=== PATIENT | female | born 1940 | race Caucasian/White ===

== ENCOUNTER 2017-04-29 07:41 | Inpatient (IN) | payer MEDICARE, BC ==
[2017-04-29] MEDS ORDERED: Pantoprazole 80 MG in Sodium Chloride 0.9% 100 ML IV ONE (08:03)
[2017-04-29] MEDS ORDERED: Ondansetron 4 MG/2 ML SDV IVPUSH ONE (08:03)
[2017-04-29] MEDS ORDERED: Sodium Chloride 0.9% 1,000 ML IV SCH ×2 (08:15→08:30)
[2017-04-29] MEDS ORDERED: Pantoprazole 80 MG in Sodium Chloride 0.9% 100 ML IV SCH (08:30)
[2017-04-29] MEDS ORDERED: Sodium Chloride 0.9% 250 ML IV SCH ×2 (08:30→09:30)
[2017-04-29] MEDS ORDERED: Sodium Chloride 0.9% 10 ML Syringe FLUSH PRN (08:41)
[2017-04-29] MEDS ORDERED: Ondansetron 4 MG Tab.DIS PO PRN (08:41)
[2017-04-29] MEDS ORDERED: Phytonadione 5 MG in Sodium Chloride 0.9% 50 ML IV ONE (08:45)
[2017-04-29] MEDS ORDERED: Lactated Ringers 1,000 ML IV SCH (08:45)
--- NOTE | 2017-04-29 08:48 | EDM.PDOC ---
ED HPI GENERAL MEDICAL PROBLEM - General Chief Complaint: Gastrointestinal Problem Stated Complaint: GI BLEED Time Seen by Provider: 04/29/17 07:41 Source of Information: Reports: Patient, Family History Limitations: Reports: No Limitations - History of Present Illness INITIAL COMMENTS - FREE TEXT/NARRATIVE: 77 y.o.w f with H/O CAD, on coumadine, last INR level was 4.7. came to the ed due to N/V in the past 3 days. Today she saw blood in her vomit and her stool was black. She felt weak as well. Last food intake yesterday. no, mild nausea and feeling weak, no other acute madical issues, no F/C no trauma. Onset: Gradual Onset Date: 04/27/17 Onset Time: 08:00 Duration: Getting Worse, Intermittent Location: Reports: Abdomen Quality: Reports: Other (weak) Severity: Moderate Improves with: Reports: Rest Worsens with: Reports: Movement Context: Reports: Other (black stool) Associated Symptoms: Reports: Nausea/Vomiting, Weakness, Other (H/O CAD) DENIES ANY PAIN AT PRESENT TIME Pain Score (Numeric/FACES): 0 - Related Data Allergies Allergy/AdvReac Type Severity Reaction Status Date / Time Iodinated Contrast- Oral and Allergy Itching Verified 04/29/17 14:56 IV Dye Home Meds: Home Meds Aspirin [Adult Low Dose Aspirin EC] 81 mg PO DAILY 04/29/17 [History] Carvedilol [Carvedilol] 6.25 mg DAILY 04/29/17 [History] Furosemide [Furosemide] 40 mg BID 04/29/17 [History] Lovastatin [Mevacor] 40 mg DAILY 04/29/17 [History] Multivitamin [Multi-Vitamin Daily] 1 tab DAILY 04/29/17 [History] Potassium Chloride [Klor-Con Sprinkle] 10 meq DAILY 04/29/17 [History] Warfarin Sodium [Jantoven] 1.25 mg DAILY 04/29/17 [History] Past Medical History HEENT History: Reports: Cataract Other HEENT History: L cataract Cardiovascular History: Reports: Afib, CAD, High Cholesterol, Hypertension 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: Musculoskeletal History: Reports: Arthritis, Fracture, Gout Other Musculoskeletal History: hx fx L ankle Neurological History: Reports: CVA Other Neuro History: mini-stroke Endocrine/Metabolic History: Reports: None Hematologic History: Reports: Blood Transfusion(s) - Infectious Disease History Infectious Disease History: Reports: Chicken Pox, Measles, Mumps - Past Surgical History Cardiovascular Surgical History: Reports: Other (See Below) Other Cardiovascular Surgeries/Procedures: heart valve repaired Musculoskeletal Surgical History: Reports: Other (See Below) Other Musculoskeletal Surgeries/Procedures:: L lower ankle surgery Social & Family History - Family History Family Medical History: Noncontributory - Tobacco Use Smoking Status *Q: Never Smoker - Alcohol Use Days Per Week of Alcohol Use: 7 Number of Drinks Per Day: 2 Total Drinks Per Week: 14 - Recreational Drug Use Recreational Drug Use: No ED ROS GENERAL - Review of Systems Review Of Systems: See Below Constitutional: Reports: Weakness, Fatigue HEENT: Reports: No Symptoms Respiratory: Reports: No Symptoms Cardiovascular: Reports: No Symptoms, Lightheadedness Endocrine: Reports: No Symptoms GI/Abdominal: Reports: Abdominal Pain (epigastric) : Reports: No Symptoms Musculoskeletal: Reports: No Symptoms Skin: Reports: No Symptoms Neurological: Reports: Weakness Psychiatric: Reports: No Symptoms Hematologic/Lymphatic: Reports: No Symptoms Immunologic: Reports: No Symptoms ED EXAM, GI/ABD - Physical Exam Exam: See Below Exam Limited By: Physical Impairment (weak) General Appearance: Alert, WD/WN, Mild Distress Eyes: Bilateral: Normal Appearance Ears: Normal External Exam Nose: Normal Inspection, Normal Mucosa Throat/Mouth: Normal Inspection, Normal Lips Head: Atraumatic, Normocephalic Neck: Normal Inspection, Supple, Non-Tender Respiratory/Chest: No Respiratory Distress, Lungs Clear, Normal Breath Sounds Cardiovascular: Normal Peripheral Pulses, Regular Rate, Rhythm GI/Abdominal Exam: Normal Bowel Sounds (Female) Exam: Deferred Rectal (Female) Exam: Black Stool Back Exam: Normal Inspection Extremities: Normal Inspection Neurological: Alert, Oriented, CN II-XII Intact, Normal Cognition Psychiatric: Normal Affect, Normal Mood Skin Exam: Warm, Dry Lymphatic: No Adenopathy Course - Vital Signs Text/Narrative:: 77 y.o.w f with H/O CAD, on coumadine, last INR level was 4.7. came to the ed due to N/V in the past 3 days. Today she saw blood in her vomit and her stool was black. She felt weak as well. Last food intake yesterday. no, mild nausea and feeling weak, no C/P, no other acute medical issues, no F/C no trauma.\ PE: pale, weak, NAD Labs: HGB 6.8 HCT 20.3 INR 1.75 Impression: Upper GI bleed, Anemia, CAD, INR 1.7 Tx: NS, Protonix, Zofran, FFP. Vitamin K Rexam: Improved 8.29 am Consultation: Dr. Craven, Surgeon: Will scope here in am 8.[address] Resendiz, Hospitalist, will see pt in the ed Plan: Admit to ICU Last Recorded V/S: Last Vital Signs Temp 36.3 C 04/29/17 17:00 Pulse 83 04/29/17 17:00 Resp 18 04/29/17 17:00 BP 104/41 L 04/29/17 17:00 Pulse Ox 100 04/29/17 17:00 - Orders/Labs/Meds Orders: Active Orders 24 hr Category Date Time Status Patient Status [ADT] Routine ADT 04/29/17 08:41 Active Oxygen Therapy [RC] PRN Care 04/29/17 08:41 Active Up With Assistance [RC] ASDIRECTED Care 04/29/17 08:41 Active VTE/DVT Education [RC] Per Unit Routine Care 04/29/17 08:41 Active Vital Signs [RC] Q4H Care 04/29/17 08:41 Active FRESH FROZEN PLASMA [BBK] Stat Lab 04/29/17 07:50 Results PATIENT RETYPE [BBK] Stat Lab 04/29/17 07:50 Results RED BLOOD CELLS LP [BBK] Stat Lab 04/29/17 07:50 Results TYPE AND SCREEN [BBK] Stat Lab 04/29/17 07:50 Results Ondansetron [Zofran ODT] Med 04/29/17 08:41 Active 4 mg PO Q4H PRN Pantoprazole [ProTONIX IV] 80 mg Med 04/29/17 08:30 Active Sodium Chloride 0.9% [Normal Saline] 100 ml IV .Continuous Sodium Chloride 0.9% [Normal Saline] 250 ml Med 04/29/17 08:30 Active IV ASDIRECTED Sodium Chloride 0.9% [Saline Flush] Med 04/29/17 08:41 Active 10 ml FLUSH ASDIRECTED PRN Peripheral IV Insertion Adult [OM.PC] Routine Oth 04/29/17 08:41 Ordered Transfuse Red Blood Cells [COMM] Stat Oth 04/29/17 08:22 Ordered Resuscitation Status Routine Resus Stat 04/29/17 08:41 Ordered EKG 12 Lead [EK] Stat Ther 04/29/17 08:41 Ordered Medication Orders Sodium Chloride (Normal Saline) 250 mls @ 100 mls/hr IV ASDIRECTED NANCY Pantoprazole Sodium 80 mg/ (Sodium Chloride) 100 mls @ 10 mls/hr IV .Continuous NANCY Stop: 04/29/17 19:59 Last Admin: 04/29/17 09:56 Dose: 10 mls/hr Sodium Chloride (Normal Saline) 250 mls @ 100 mls/hr IV ASDIRECTED NANCY Last Admin: 04/29/17 10:00 Dose: 100 mls/hr Potassium Chloride/Sodium Chloride (Normal Saline With 20 Meq Kcl) 1,000 mls @ 125 mls/hr IV Q8H NANCY Last Admin: 04/29/17 13:40 Dose: 125 mls/hr Pantoprazole Sodium 80 mg/ (Sodium Chloride) 100 mls @ 10 mls/hr IV Q10H NANCY Ondansetron HCl (Zofran Odt) 4 mg PO Q4H PRN PRN Reason: nausea, able to take PO Sodium Chloride (Saline Flush) 10 ml FLUSH ASDIRECTED PRN PRN Reason: Keep Vein Open Last Admin: 04/29/17 13:32 Dose: 10 ml Labs: Laboratory Tests 04/29/17 04/29/17 04/29/17 Range/Units 07:50 07:50 07:50 WBC 7.6 (4.5-12.0) X10-3/uL RBC 1.97 L (3.23-5.20) x10(6)uL Hgb 6.8 L* (11.5-15.5) g/dL Hct 20.2 L* (30.0-51.3) % MCV 102.6 H (80-96) fL MCH 34.5 H (27.7-33.6) pg MCHC 33.6 (32.2-35.4) g/dL RDW 13.4 (11.5-15.5) % Plt Count 145 (125-369) X10(3)uL MPV 9.9 (7.4-10.4) fL Neut % (Auto) 70.2 (46-82) % Lymph % (Auto) 25.8 (13-37) % [place] % (Auto) 3.8 L (4-12) % Eos % (Auto) 0 L (1.0-5.0) % Baso % (Auto) 0 (0-2) % Neut # (Auto) 5.3 (1.6-8.3) # Lymph # (Auto) 2.0 (0.6-5.0) # [place] # (Auto) 0.3 (0.0-1.3) # Eos # (Auto) 0.0 (0.0-0.8) # Baso # (Auto) 0.0 (0.0-0.2) # PT 17.9 H (8.7-11.1) INR 1.75 H (0.89-1.13) Sodium 138 (135-145) mmol/L Potassium 3.2 L (3.5-5.3) mmol/L Chloride 101 (100-110) mmol/L Carbon Dioxide 17 L (23-29) mmol/L BUN 68 H (8-23) mg/dL Creatinine 1.3 (0.6-1.3) mg/dL Est Cr Clr Drug Dosing TNP Estimated GFR (MDRD) 40 L (>60) BUN/Creatinine Ratio 52.3 H (9-20) Glucose 288 H (80-116) mg/dL Calcium 8.7 (8.6-10.2) mg/dL Total Bilirubin (0.1-1.3) mg/dL Direct Bilirubin (0.1-0.2) mg/dL AST (5-27) IU/L ALT (14-26) IU/L Alkaline Phosphatase (56-112) IU/L Troponin I (0.02-0.06) NG/ML Total Protein (6.0-8.0) g/dL Albumin (3.2-4.6) g/dL Amylase (28-100) U/L Blood Type Gel Antibody Screen Crossmatch 04/29/17 04/29/17 04/29/17 Range/Units 07:50 07:50 07:50 WBC (4.5-12.0) X10-3/uL RBC (3.23-5.20) x10(6)uL Hgb (11.5-15.5) g/dL Hct (30.0-51.3) % MCV (80-96) fL MCH (27.7-33.6) pg MCHC (32.2-35.4) g/dL RDW (11.5-15.5) % Plt Count (125-369) X10(3)uL MPV (7.4-10.4) fL Neut % (Auto) (46-82) % Lymph % (Auto) (13-37) % [place] % (Auto) (4-12) % Eos % (Auto) (1.0-5.0) % Baso % (Auto) (0-2) % Neut # (Auto) (1.6-8.3) # Lymph # (Auto) (0.6-5.0) # [place] # (Auto) (0.0-1.3) # Eos # (Auto) (0.0-0.8) # Baso # (Auto) (0.0-0.2) # PT (8.7-11.1) INR (0.89-1.13) Sodium (135-145) mmol/L Potassium (3.5-5.3) mmol/L Chloride (100-110) mmol/L Carbon Dioxide (23-29) mmol/L BUN (8-23) mg/dL Creatinine (0.6-1.3) mg/dL Est Cr Clr Drug Dosing Estimated GFR (MDRD) (>60) BUN/Creatinine Ratio (9-20) Glucose (80-116) mg/dL Calcium (8.6-10.2) mg/dL Total Bilirubin 1.1 (0.1-1.3) mg/dL Direct Bilirubin 0.2 (0.1-0.2) mg/dL AST 33 H (5-27) IU/L ALT 13 L (14-26) IU/L Alkaline Phosphatase 55 L (56-112) IU/L Troponin I < 0.01 L (0.02-0.06) NG/ML Total Protein 5.2 L (6.0-8.0) g/dL Albumin 2.7 L (3.2-4.6) g/dL Amylase 42 (28-100) U/L Blood Type O POSITIVE Gel Antibody Screen Negative Crossmatch See Detail Meds: Medications Generic Name Dose Route Start Last Admin Trade Name Shauna PRN Reason Stop Dose Admin Sodium Chloride 250 mls @ 100 mls/hr 04/29/17 08:30 Normal Saline IV ASDIRECTED NANCY Pantoprazole Sodium 80 mg/ 100 mls @ 10 mls/hr 04/29/17 08:30 04/29/17 09:56 Sodium Chloride IV 04/29/17 19:59 10 mls/hr .Continuous NANCY Administration Sodium Chloride 250 mls @ 100 mls/hr 04/29/17 09:30 04/29/17 10:00 Normal Saline IV 100 mls/hr ASDIRECTED NANCY Administration Potassium Chloride/Sodium Chloride 1,000 mls @ 125 mls/hr 04/29/17 13:00 13:40 Normal Saline With 20 Meq Kcl IV 125 mls/hr Q8H NANCY Administration Pantoprazole Sodium 80 mg/ 100 mls @ 10 mls/hr 04/29/17 20:00 Sodium Chloride IV Q10H NANCY Ondansetron HCl 4 mg 04/29/17 08:41 Zofran Odt PO Q4H PRN nausea, able to take PO Sodium Chloride 10 ml 04/29/17 08:41 04/29/17 13:32 Saline Flush FLUSH 10 ml ASDIRECTED PRN Administration Keep Vein Open Discontinued Medications Generic Name Dose Route Start Last Admin Trade Name Shauna PRN Reason Stop Dose Admin Pantoprazole Sodium 80 mg/ 100 mls @ 200 mls/hr 04/29/17 08:03 04/29/17 08:55 Sodium Chloride IV 04/29/17 08:32 200 mls/hr .BOLUS ONE Administration Sodium Chloride 1,000 mls @ 125 mls/hr 04/29/17 08:15 04/29/17 08:09 Normal Saline IV 125 mls/hr ASDIRECTED NANCY Administration Phytonadione 5 mg/ Sodium 50.5 mls @ 100 mls/hr 04/29/17 08:45 04/29/17 09:26 Chloride IV 04/29/17 09:15 Not Given ONETIME ONE Lactated Ringer's 1,000 mls @ 125 mls/hr 04/29/17 08:45 Ringers, Lactated IV ASDIRECTED NANCY Ondansetron HCl 8 mg 04/29/17 08:03 04/29/17 08:10 Zofran IVPUSH 04/29/17 08:04 8 mg ONETIME ONE Administration Departure - Departure Time of Disposition: 10:00 Disposition: Admitted As Inpatient 68 Condition: Fair Clinical Impression: Anemia, GI bleeding - Discharge Information - My Orders Last 24 Hours: My Active Orders 04/29/17 07:50 FRESH FROZEN PLASMA [BBK] Stat PATIENT RETYPE [BBK] Stat RED BLOOD CELLS LP [BBK] Stat TYPE AND SCREEN [BBK] Stat 04/29/17 08:22 Transfuse Red Blood Cells [COMM] Stat 04/29/17 08:30 Pantoprazole [ProTONIX IV] 80 mg Sodium Chloride 0.9% [Normal Saline] 100 ml IV .Continuous Sodium Chloride 0.9% [Normal Saline] 250 ml IV ASDIRECTED 04/29/17 08:41 Patient Status [ADT] Routine Oxygen Therapy [RC] PRN Up With Assistance [RC] ASDIRECTED VTE/DVT Education [RC] Per Unit Routine Vital Signs [RC] Q4H Ondansetron [Zofran ODT] 4 mg PO Q4H PRN Sodium Chloride 0.9% [Saline Flush] 10 ml FLUSH ASDIRECTED PRN Peripheral IV Insertion Adult [OM.PC] Routine Resuscitation Status Routine EKG 12 Lead [EK] Stat - Assessment/Plan Last 24 Hours: My Active Orders 04/29/17 07:50 FRESH FROZEN PLASMA [BBK] Stat PATIENT RETYPE [BBK] Stat RED BLOOD CELLS LP [BBK] Stat TYPE AND SCREEN [BBK] Stat 04/29/17 08:22 Transfuse Red Blood Cells [COMM] Stat 04/29/17 08:30 Pantoprazole [ProTONIX IV] 80 mg Sodium Chloride 0.9% [Normal Saline] 100 ml IV .Continuous Sodium Chloride 0.9% [Normal Saline] 250 ml IV ASDIRECTED 04/29/17 08:41 Patient Status [ADT] Routine Oxygen Therapy [RC] PRN Up With Assistance [RC] ASDIRECTED VTE/DVT Education [RC] Per Unit Routine Vital Signs [RC] Q4H Ondansetron [Zofran ODT] 4 mg PO Q4H PRN Sodium Chloride 0.9% [Saline Flush] 10 ml FLUSH ASDIRECTED PRN Peripheral IV Insertion Adult [OM.PC] Routine Resuscitation Status Routine EKG 12 Lead [EK] Stat
--- NOTE | 2017-04-29 09:24 | PCM.HP ---
H&P History of Present Illness - General Date of Service: 04/29/17 Source of Information: Patient History Limitations: Reports: No Limitations - History of Present Illness Initial Comments - Free Text/Narative: This is a 77-year-old female patient is on Coumadin for atrial fibrillation. She states she's had a valve repair but not replacement. 2 days ago she started vomiting and then last night she started vomiting blood. 2 days ago she started having black tarry stools. She felt very weak today was brought to the ER and was found to be anemic with upper GI bleed. Patient has a little epigastric pain. She does not take nonsteroidal anti-inflammatories. She has 2 whiskeys a day. No history of GI bleeds. She quit taken her Coumadin 3 days ago. She denies shortness of breath, sweating, dizziness but she is very fatigued. - Related Data Allergies/Adverse Reactions: Allergies Allergy/AdvReac Type Severity Reaction Status Date / Time Iodinated Contrast- Oral and Allergy Itching Verified 04/29/17 07:51 IV Dye Home Medications: Home Meds Aspirin [Adult Low Dose Aspirin EC] 81 mg PO DAILY 04/29/17 [History] Carvedilol [Carvedilol] 6.25 mg DAILY 04/29/17 [History] Furosemide [Furosemide] 40 mg BID 04/29/17 [History] Lovastatin [Mevacor] 40 mg DAILY 04/29/17 [History] Multivitamin [Multi-Vitamin Daily] 1 tab DAILY 04/29/17 [History] Potassium Chloride [Klor-Con Sprinkle] 10 meq DAILY 04/29/17 [History] Warfarin Sodium [Jantoven] 1.25 mg DAILY 04/29/17 [History] Past Medical History HEENT History: Reports: Cataract Other HEENT History: L cataract Cardiovascular History: Reports: Afib, CAD, High Cholesterol, Hypertension Gastrointestinal History: Reports: 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: Musculoskeletal History: Reports: Arthritis, Fracture, Gout Other Musculoskeletal History: hx fx L ankle Neurological History: Reports: CVA Other Neuro History: mini-stroke Endocrine/Metabolic History: Reports: None Hematologic History: Reports: Blood Transfusion(s) - Infectious Disease History Infectious Disease History: Reports: Chicken Pox, Measles, Mumps - Past Surgical History Cardiovascular Surgical History: Reports: Other (See Below) Other Cardiovascular Surgeries/Procedures: heart valve repaired Musculoskeletal Surgical History: Reports: Other (See Below) Other Musculoskeletal Surgeries/Procedures:: L lower ankle surgery Social & Family History - Family History Family Medical History: Noncontributory - Tobacco Use Smoking Status *Q: Never Smoker - Caffeine Use Caffeine Use: Reports: Soda - Alcohol Use Days Per Week of Alcohol Use: 7 Number of Drinks Per Day: 2 Total Drinks Per Week: 14 - Recreational Drug Use Recreational Drug Use: No H&P Review of Systems - Review of Systems: Review Of Systems: See Below General: Reports: Weakness HEENT: Reports: No Symptoms Pulmonary: Reports: No Symptoms Cardiovascular: Reports: No Symptoms Gastrointestinal: Reports: Abdominal Pain (Mild epigastric), Hematemesis, Melena Genitourinary: Reports: No Symptoms Musculoskeletal: Reports: No Symptoms Skin: Reports: No Symptoms Psychiatric: Reports: No Symptoms Neurological: Reports: No Symptoms Hematologic/Lymphatic: Reports: No Symptoms Immunologic: Reports: No Symptoms Exam - Exam Exam: See Below - Vital Signs Vital Signs: Last Vital Signs Temp Pulse Resp BP Pulse Ox 88 L 04/29/17 08:15 - Exam General: Alert, Oriented HEENT: Hearing Intact, Posterior Pharynx Clear Neck: Supple, Trachea Midline Lungs: Clear to Auscultation, Normal Respiratory Effort Cardiovascular: Regular Rate, Regular Rhythm. No: Tachycardia, Systolic Murmur GI/Abdominal Exam: Normal Bowel Sounds, Soft, No Organomegaly, No Distention, Tender (Mild epigastric) Back Exam: Normal Inspection, Full Range of Motion Extremities: No Pedal Edema Skin: Warm, Dry, Intact Neurological: Normal Speech, Normal Tone Neuro Extensive - Mental Status: Alert, Oriented x3, Normal Mood/Affect, Normal Cognition Psychiatric: Alert, Normal Affect, Normal Mood - Patient Data Result Diagrams: 04/29/17 07:50 04/29/17 07:50 *Q Meaningful Use (ADM) - VTE *Q VTE Criteria *Q: - Stroke *Q Stroke Criteria *Q: - AMI *Q AMI Criteria *Q: - Problem List (1) Upper GI bleed SNOMED Code(s): 91009003 ICD Code: K92.2 - GASTROINTESTINAL HEMORRHAGE, UNSPECIFIED Status: Acute Current Visit: Yes (2) Anticoagulation excessive SNOMED Code(s): 760157743 ICD Code: [id number] - Status: Acute Current Visit: Yes Problem List Initiated/Reviewed/Updated: Yes Orders Last 24hrs: Active Orders 24 hr Category Date Time Status Sodium Chloride 0.9% [Normal Saline] 1,000 ml Med 04/29/17 08:30 Active IV ASDIRECTED Medication Orders Sodium Chloride (Normal Saline) 1,000 mls @ 125 mls/hr IV ASDIRECTED NANCY Last Admin: 04/29/17 08:09 Dose: 125 mls/hr Sodium Chloride (Normal Saline) 250 mls @ 100 mls/hr IV ASDIRECTED NANCY Pantoprazole Sodium 80 mg/ (Sodium Chloride) 100 mls @ 10 mls/hr IV .Continuous NANCY Sodium Chloride (Normal Saline) 1,000 mls @ 125 mls/hr IV ASDIRECTED NANCY Ondansetron HCl (Zofran Odt) 4 mg PO Q4H PRN PRN Reason: nausea, able to take PO Sodium Chloride (Saline Flush) 10 ml FLUSH ASDIRECTED PRN PRN Reason: Keep Vein Open Assessment/Plan Comment:: 1. Admit to the ICU. 2. 1 unit FFP because the INR is already under 2. 3. 2 units of blood with too on hold 4. Nothing by mouth 5. The ER doc called Dr. Craven who will scope her later tonight. 6. Hold her home meds for now. 7. Bed rest with psychomotor 8. Discussed living barber and she wants to be a full code.
[2017-04-29] MEDS: NS + KCl 20mEq/L 1,000 ML IV SCH ×2 (13:40→21:56)
--- NOTE | 2017-04-29 16:09 | PCM.CONS ---
H&P History of Present Illness - General Date of Service: 04/29/17 Admit Problem/Dx: Hematemesis and melena Source of Information: Patient, Provider History Limitations: Reports: No Limitations - History of Present Illness Initial Comments - Free Text/Narative: Started having dark stool 2 days ago amd blood in emesis yesterday. On coumadin but not for past 3 days. No abdominal pain. No previous EGD or colonoscopy DENIES ANY PAIN AT PRESENT TIME Pain Score (Numeric/FACES): 0 - Related Data Allergies/Adverse Reactions: Allergies Allergy/AdvReac Type Severity Reaction Status Date / Time Iodinated Contrast- Oral and Allergy Itching Verified 04/29/17 14:56 IV Dye Home Medications: Home Meds Aspirin [Adult Low Dose Aspirin EC] 81 mg PO DAILY 04/29/17 [History] Carvedilol [Carvedilol] 6.25 mg DAILY 04/29/17 [History] Furosemide [Furosemide] 40 mg BID 04/29/17 [History] Lovastatin [Mevacor] 40 mg DAILY 04/29/17 [History] Multivitamin [Multi-Vitamin Daily] 1 tab DAILY 04/29/17 [History] Potassium Chloride [Klor-Con Sprinkle] 10 meq DAILY 04/29/17 [History] Warfarin Sodium [Jantoven] 1.25 mg DAILY 04/29/17 [History] Past Medical History HEENT History: Reports: Cataract Other HEENT History: L cataract Cardiovascular History: Reports: Afib, CAD, High Cholesterol, Hypertension Gastrointestinal History: Reports: 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: Musculoskeletal History: Reports: Arthritis, Fracture, Gout Other Musculoskeletal History: hx fx L ankle Neurological History: Reports: CVA Other Neuro History: mini-stroke Endocrine/Metabolic History: Reports: None Hematologic History: Reports: Blood Transfusion(s) - Infectious Disease History Infectious Disease History: Reports: Chicken Pox, Measles, Mumps - Past Surgical History Cardiovascular Surgical History: Reports: Other (See Below) Other Cardiovascular Surgeries/Procedures: heart valve repaired Musculoskeletal Surgical History: Reports: Other (See Below) Other Musculoskeletal Surgeries/Procedures:: L lower ankle surgery Social & Family History - Family History Family Medical History: Noncontributory - Tobacco Use Smoking Status *Q: Never Smoker Second Hand Smoke Exposure: No - Caffeine Use Caffeine Use: Reports: None - Alcohol Use Days Per Week of Alcohol Use: 7 Number of Drinks Per Day: 2 Total Drinks Per Week: 14 - Recreational Drug Use Recreational Drug Use: No H&P Review of Systems - Review of Systems: Review Of Systems: See Below General: Reports: Fatigue Pulmonary: Reports: No Symptoms Cardiovascular: Reports: No Symptoms Gastrointestinal: Reports: No Symptoms, Black Stool, Hematemesis Genitourinary: Reports: No Symptoms Exam - Exam Exam: See Below - Vital Signs Vital Signs: Last Vital Signs Temp 98.9 F 04/29/17 14:19 Pulse 87 04/29/17 14:19 Resp 18 04/29/17 14:19 BP 114/60 04/29/17 14:19 Pulse Ox 98 04/29/17 09:10 Weight: 66.82 kg - Exam General: Alert, Oriented Lungs: Clear to Auscultation, Normal Respiratory Effort GI/Abdominal Exam: Normal Bowel Sounds, Soft, Non-Tender, No Mass - Patient Data Lab Results Last 24 hrs: Laboratory Results - last 24 hr 04/29/17 04/29/17 Range/Units 09:30 13:35 Hgb 6.6 L* 6.9 L* (11.5-15.5) g/dL Hct 19.1 L* 20.3 L* (30.0-51.3) % Result Diagrams: 04/29/17 13:35 04/29/17 07:50 Consult PN Assessment/Plan Procedures: Procedures CARDIAC REHAB/MONITOR (05/08/16) CT HEAD/BRAIN W/O DYE (06/01/15) EMERGENCY DEPT VISIT (06/01/15) EMERGENCY DEPT VISIT (06/01/15) MRI BRAIN STEM W/O DYE (01/18/17) NEUROMUSCULAR REEDUCATION (07/10/15) OT EVALUATION (07/10/15) THER/PROPH/DIAG INJ SC/IM (06/01/15) THERAPEUTIC EXERCISES (07/10/15) (1) Upper GI bleed SNOMED Code(s): 36341191 Code(s): K92.2 - GASTROINTESTINAL HEMORRHAGE, UNSPECIFIED Current Visit: Yes Problem List Initiated/Reviewed/Updated: Yes My Orders Last 24 Hours: My Active Orders 04/29/17 Dinner NPO After Midnight [Nothing per Oral After Midnight Diet] [DIET] Nothing Per Oral Diet [DIET] 04/29/17 Lunch Clear Liquid Diet [DIET] 04/30/17 11:00 Patient to Empty Bladder [RC] ASDIRECTED Verify Patient Consent Obtain [RC] ASDIRECTED Will do EGD in am; risks and complications reviewed, consent obtained
[2017-04-29] MEDS: Pantoprazole 80 MG in Sodium Chloride 0.9% 100 ML IV SCH (20:13)
[2017-04-30] MEDS: Pantoprazole 80 MG in Sodium Chloride 0.9% 100 ML IV SCH ×2 (06:02→17:31)
[2017-04-30] MEDS: NS + KCl 20mEq/L 1,000 ML IV SCH ×2 (06:02→14:50)
--- NOTE | 2017-04-30 08:57 | PCM.PN ---
- General Info Date of Service: 04/30/17 Admission Dx/Problem (Free Text): Patient denies hematemesis, melena or abdominal pain. She states she still feels weak but better than yesterday. She denies dizziness. - Patient Data Vitals - Most Recent: Last Vital Signs Temp 98.6 F 04/30/17 07:46 Pulse 81 04/30/17 07:46 Resp 18 04/30/17 07:46 BP 132/65 04/30/17 07:46 Pulse Ox 96 04/30/17 07:46 Weight - Most Recent: 153 lb 12.8 oz I&O - Last 24 Hours: Intake & Output 04/29/17 04/30/17 04/30/17 22:59 06:59 14:59 Intake Total 1546 1006 Output Total 0 450 Balance 1546 556 Lab Results Last 24 Hours: Laboratory Results - last 24 hr 04/29/17 04/29/17 04/29/17 Range/Units 09:30 13:35 16:50 Hgb 6.6 L* 6.9 L* 8.9 L (11.5-15.5) g/dL Hct 19.1 L* 20.3 L* (30.0-51.3) % PT (8.7-11.1) INR (0.89-1.13) Sodium (135-145) mmol/L Potassium (3.5-5.3) mmol/L Chloride (100-110) mmol/L Carbon Dioxide (23-29) mmol/L BUN (8-23) mg/dL Creatinine (0.6-1.3) mg/dL Est Cr Clr Drug Dosing mL/min Estimated GFR (MDRD) (>60) BUN/Creatinine Ratio (9-20) Glucose (80-116) mg/dL Calcium (8.6-10.2) mg/dL Total Bilirubin (0.1-1.3) mg/dL AST (5-27) IU/L ALT (14-26) IU/L Alkaline Phosphatase (56-112) IU/L Total Protein (6.0-8.0) g/dL Albumin (3.2-4.6) g/dL Globulin g/dL Albumin/Globulin Ratio 04/29/17 04/29/17 04/30/17 Range/Units 16:50 21:30 01:30 Hgb 9.0 L 8.4 L (11.5-15.5) g/dL Hct 26.1 L 25.1 L (30.0-51.3) % PT 15.8 H (8.7-11.1) INR 1.55 H (0.89-1.13) Sodium (135-145) mmol/L Potassium (3.5-5.3) mmol/L Chloride (100-110) mmol/L Carbon Dioxide (23-29) mmol/L BUN (8-23) mg/dL Creatinine (0.6-1.3) mg/dL Est Cr Clr Drug Dosing mL/min Estimated GFR (MDRD) (>60) BUN/Creatinine Ratio (9-20) Glucose (80-116) mg/dL Calcium (8.6-10.2) mg/dL Total Bilirubin (0.1-1.3) mg/dL AST (5-27) IU/L ALT (14-26) IU/L Alkaline Phosphatase (56-112) IU/L Total Protein (6.0-8.0) g/dL Albumin (3.2-4.6) g/dL Globulin g/dL Albumin/Globulin Ratio 04/30/17 04/30/17 04/30/17 Range/Units 05:35 05:35 05:35 Hgb 8.2 L (11.5-15.5) g/dL Hct 24.2 L (30.0-51.3) % PT 16.1 H (8.7-11.1) INR 1.58 H (0.89-1.13) Sodium 144 (135-145) mmol/L Potassium 3.4 L (3.5-5.3) mmol/L Chloride 111 H D (100-110) mmol/L Carbon Dioxide 25 (23-29) mmol/L BUN 39 H D (8-23) mg/dL Creatinine 1.1 (0.6-1.3) mg/dL Est Cr Clr Drug Dosing 39.76 mL/min Estimated GFR (MDRD) 48 L (>60) BUN/Creatinine Ratio 35.5 H (9-20) Glucose 98 D (80-116) mg/dL Calcium 8.0 L (8.6-10.2) mg/dL Total Bilirubin 1.0 (0.1-1.3) mg/dL AST 22 D (5-27) IU/L ALT 12 L (14-26) IU/L Alkaline Phosphatase 48 L (56-112) IU/L Total Protein 4.7 L (6.0-8.0) g/dL Albumin 2.7 L (3.2-4.6) g/dL Globulin 2.0 g/dL Albumin/Globulin Ratio 1.4 Med Orders - Current: Current Medications Sodium Chloride (Normal Saline) 250 mls @ 100 mls/hr IV ASDIRECTED NANCY Sodium Chloride (Normal Saline) 250 mls @ 100 mls/hr IV ASDIRECTED NANCY Last Admin: 04/29/17 10:00 Dose: 100 mls/hr Potassium Chloride/Sodium Chloride (Normal Saline With 20 Meq Kcl) 1,000 mls @ 125 mls/hr IV Q8H [facility] Last Admin: 04/30/17 06:02 Dose: 125 mls/hr Pantoprazole Sodium 80 mg/ (Sodium Chloride) 100 mls @ 10 mls/hr IV Q10H NANCY Last Admin: 04/30/17 06:02 Dose: 10 mls/hr Ondansetron HCl (Zofran Odt) 4 mg PO Q4H PRN PRN Reason: nausea, able to take PO Sodium Chloride (Saline Flush) 10 ml FLUSH ASDIRECTED PRN PRN Reason: Keep Vein Open Last Admin: 04/29/17 13:32 Dose: 10 ml Discontinued Medications Pantoprazole Sodium 80 mg/ (Sodium Chloride) 100 mls @ 200 mls/hr IV .BOLUS ONE Stop: 04/29/17 08:32 Last Admin: 04/29/17 08:55 Dose: 200 mls/hr Sodium Chloride (Normal Saline) 1,000 mls @ 125 mls/hr IV ASDIRECTED NANCY Last Admin: 04/29/17 08:09 Dose: 125 mls/hr Pantoprazole Sodium 80 mg/ (Sodium Chloride) 100 mls @ 10 mls/hr IV .Continuous NANCY Stop: 04/29/17 19:59 Last Admin: 04/29/17 09:56 Dose: 10 mls/hr Phytonadione 5 mg/ Sodium (Chloride) 50.5 mls @ 100 mls/hr IV ONETIME ONE Stop: 04/29/17 09:15 Last Admin: 04/29/17 09:26 Dose: Not Given Lactated Ringer's (Ringers, Lactated) 1,000 mls @ 125 mls/hr IV ASDIRECTED [facility] Ondansetron HCl (Zofran) 8 mg IVPUSH ONETIME ONE Stop: 04/29/17 08:04 Last Admin: 04/29/17 08:10 Dose: 8 mg - Exam General: Alert, Oriented Lungs: Normal Respiratory Effort GI/Abdominal Exam: Normal Bowel Sounds, Soft, Non-Tender, No Distention - Problem List & Annotations (1) Upper GI bleed SNOMED Code(s): 87705467 Code(s): K92.2 - GASTROINTESTINAL HEMORRHAGE, UNSPECIFIED Status: Acute Current Visit: Yes (2) Anticoagulation excessive SNOMED Code(s): 331783103 Code(s): WDK3767 - Status: Acute Current Visit: Yes - Problem List Review Problem List Initiated/Reviewed/Updated: Yes - My Orders Last 24 Hours: My Active Orders 04/29/17 13:00 NS + KCl 20mEq/L [Normal Saline with 20 mEq KCl] 1,000 ml IV Q8H 05/01/17 06:00 INR,PT,PROTHROMBIN TIME [COAG] DAILY 05/02/17 06:00 INR,PT,PROTHROMBIN TIME [COAG] DAILY 05/03/17 06:00 INR,PT,PROTHROMBIN TIME [COAG] DAILY - Plan Plan:: 1. EGD today. Nothing by mouth until that's over. 2. Iron start after EGD.
[2017-04-30] MEDS: Iron Polysaccharides Complex 150 MG Cap PO SCH ×2 (09:56→14:45)
[2017-04-30 11:34] VITALS: BP 125/48
[2017-04-30] MEDS ORDERED: Midazolam 1 MG/ML 2 ML SDV IV ONE (12:30)
[2017-04-30] MEDS ORDERED: Lactated Ringers 1,000 ML IV ONE (12:30)
[2017-04-30] MEDS ORDERED: Propofol 200 MG/20 ML SDV IV ONE (12:30)
[2017-04-30] MEDS ORDERED: Lidocaine 2% 100 MG/5 ML Syringe IVPUSH ONE (12:30)
--- NOTE | 2017-04-30 12:40 | PCM.OPNOTE ---
- General Post-Op/Procedure Note Date of Surgery/Procedure: 04/30/17 Operative Procedure(s): EGD with bx Findings: Pyloric Channel Ulcer X 2 Pre Op Diagnosis: Hematemesis and Melena Post-Op Diagnosis: Same Anesthesia Technique: MAC Primary Surgeon: Leodan Craven Anesthesia Provider: Shelly Forde EBL in mLs: 0 Complications: None Condition: Fair Free Text/Narrative:: Intake & Output 04/29/17 04/30/17 04/30/17 22:59 06:59 14:59 Intake Total 1546 1006 Output Total 0 450 200 Balance 1546 556 -200
[2017-04-30] MEDS ORDERED: FLU Vacc QS 2017-18 (36mos UP)/PF 60 MCG/0.5 ML Syringe IM ONE ×2 (15:32→16:00)
--- NOTE | 2017-04-30 16:38 | PCM.SN ---
- Free Text/Narrative Note: Dr Craven note reviewed. Discharge the patient holding Coumadin and iron twice a day.
--- NOTE | 2017-04-30 16:42 | PCM.DCSUM1 ---
Discharge Summary - Hospital Course Free Text/Narrative:: Hospital course-patient was admitted to the ICU and given 1 unit at [facility] and 2 units of RBCs. Patients hemoglobin went up to 8.9. We followed her through the night using IV fluids and she was able to maintain her hemoglobin over 8 the whole time. She did EGD the next day that showed 2 ulcers that were not bleeding. She'll be discharged home holding her Coumadin on iron twice a day. Patient did not have any melena, hematochezia, hematemesis while she was at the hospital here. Her INR was initially 1.7 because she had stopped the Coumadin 3 days prior to. The next day was 1.53. Brief History: This is a 77-year-old female patient is on Coumadin for atrial fibrillation. She states she's had a valve repair but not replacement. 2 days ago she started vomiting and then last night she started vomiting blood. 2 days ago she started having black tarry stools. She felt very weak today was brought to the ER and was found to be anemic with upper GI bleed. Patient has a little epigastric pain. She does not take nonsteroidal anti-inflammatories. She has 2 whiskeys a day. No history of GI bleeds. She quit taken her Coumadin 3 days ago. She denies shortness of breath, sweating, dizziness but she is very fatigued. - Discharge Data Discharge Date: 04/30/17 Discharge Disposition: Home, Self-Care 01 Condition: Fair - Discharge Diagnosis/Problem(s) (1) Upper GI bleed SNOMED Code(s): 18898339 ICD Code: K92.2 - GASTROINTESTINAL HEMORRHAGE, UNSPECIFIED Status: Acute Current Visit: Yes (2) Anticoagulation excessive SNOMED Code(s): 897224329 ICD Code: UJO5831 - Status: Acute Current Visit: Yes (3) Peptic ulcer SNOMED Code(s): 57713615 ICD Code: K27.9 - PEPTIC ULC, SITE UNSP, UNSP AC OR CHR, W/O HEMOR OR PERF Status: Acute Current Visit: Yes Problem Details: 2 - Patient Summary/Data Operative Procedure(s) Performed: EGD with bx - Patient Instructions Diet: Regular Diet as Tolerated Activity: As Tolerated Driving: May Drive Today Showering/Bathing: May Shower Notify Provider of: Increased Pain, Drainage, Nausea and/or Vomiting Other/Special Instructions: 1. Recheck with Dr. Muir in 7-10 days with a CBC for the appointment. 2. Patient is to hold her Coumadin until further notice. - Discharge Plan Home Medications: Home Meds Aspirin [Adult Low Dose Aspirin EC] 81 mg PO DAILY 04/29/17 [History] Carvedilol [Carvedilol] 6.25 mg DAILY 04/29/17 [History] Furosemide [Furosemide] 40 mg BID 04/29/17 [History] Lovastatin [Mevacor] 40 mg DAILY 04/29/17 [History] Multivitamin [Multi-Vitamin Daily] 1 tab DAILY 04/29/17 [History] Potassium Chloride [Klor-Con Sprinkle] 10 meq DAILY 04/29/17 [History] Warfarin Sodium [Jantoven] 1.25 mg DAILY 04/29/17 [History] Patient Handouts: Blood Transfusion, [id number], Fall Prevention in Hospitals , Adult, Venous Thromboembolism Prevention Forms: ED Department Discharge Referrals: Evelio Muir MD [Primary Care Provider] - - Discharge Summary/Plan Comment DC Time >30 min.: No - Patient Data Vitals - Most Recent: Last Vital Signs Temp 98.6 F 04/30/17 11:18 Pulse 79 04/30/17 11:18 Resp 13 04/30/17 11:18 BP 125/48 L 04/30/17 11:18 Pulse Ox 100 04/30/17 11:18 Weight - Most Recent: 153 lb 12.8 oz I&O - Last 24 hours: Intake & Output 04/30/17 04/30/17 04/30/17 06:59 14:59 22:59 Intake Total 1006 1200 Output Total 450 200 400 Balance 556 1000 -400 Lab Results - Last 24 hrs: Laboratory Results - last 24 hr 04/29/17 04/29/17 04/29/17 Range/Units 16:50 16:50 21:30 Hgb 8.9 L 9.0 L (11.5-15.5) g/dL Hct 26.1 L (30.0-51.3) % PT 15.8 H (8.7-11.1) INR 1.55 H (0.89-1.13) Sodium (135-145) mmol/L Potassium (3.5-5.3) mmol/L Chloride (100-110) mmol/L Carbon Dioxide (23-29) mmol/L BUN (8-23) mg/dL Creatinine (0.6-1.3) mg/dL Est Cr Clr Drug Dosing mL/min Estimated GFR (MDRD) (>60) BUN/Creatinine Ratio (9-20) Glucose (80-116) mg/dL Calcium (8.6-10.2) mg/dL Total Bilirubin (0.1-1.3) mg/dL AST (5-27) IU/L ALT (14-26) IU/L Alkaline Phosphatase (56-112) IU/L Total Protein (6.0-8.0) g/dL Albumin (3.2-4.6) g/dL Globulin g/dL Albumin/Globulin Ratio 04/30/17 04/30/17 04/30/17 Range/Units 01:30 05:35 05:35 Hgb 8.4 L 8.2 L (11.5-15.5) g/dL Hct 25.1 L 24.2 L (30.0-51.3) % PT (8.7-11.1) INR (0.89-1.13) Sodium 144 (135-145) mmol/L Potassium 3.4 L (3.5-5.3) mmol/L Chloride 111 H D (100-110) mmol/L Carbon Dioxide 25 (23-29) mmol/L BUN 39 H D (8-23) mg/dL Creatinine 1.1 (0.6-1.3) mg/dL Est Cr Clr Drug Dosing 39.76 mL/min Estimated GFR (MDRD) 48 L (>60) BUN/Creatinine Ratio 35.5 H (9-20) Glucose 98 D (80-116) mg/dL Calcium 8.0 L (8.6-10.2) mg/dL Total Bilirubin 1.0 (0.1-1.3) mg/dL AST 22 D (5-27) IU/L ALT 12 L (14-26) IU/L Alkaline Phosphatase 48 L (56-112) IU/L Total Protein 4.7 L (6.0-8.0) g/dL Albumin 2.7 L (3.2-4.6) g/dL Globulin 2.0 g/dL Albumin/Globulin Ratio 1.4 04/30/17 04/30/17 04/30/17 Range/Units 05:35 10:20 14:20 Hgb 8.5 L 9.2 L (11.5-15.5) g/dL Hct 25.1 L 27.3 L (30.0-51.3) % PT 16.1 H (8.7-11.1) INR 1.58 H (0.89-1.13) Sodium (135-145) mmol/L Potassium (3.5-5.3) mmol/L Chloride (100-110) mmol/L Carbon Dioxide (23-29) mmol/L BUN (8-23) mg/dL Creatinine (0.6-1.3) mg/dL Est Cr Clr Drug Dosing mL/min Estimated GFR (MDRD) (>60) BUN/Creatinine Ratio (9-20) Glucose (80-116) mg/dL Calcium (8.6-10.2) mg/dL Total Bilirubin (0.1-1.3) mg/dL AST (5-27) IU/L ALT (14-26) IU/L Alkaline Phosphatase (56-112) IU/L Total Protein (6.0-8.0) g/dL Albumin (3.2-4.6) g/dL Globulin g/dL Albumin/Globulin Ratio Med Orders - Current: Current Medications Sodium Chloride (Normal Saline) 250 mls @ 100 mls/hr IV ASDIRECTED [facility] Sodium Chloride (Normal Saline) 250 mls @ 100 mls/hr IV ASDIRECTED [facility] Last Admin: 04/29/17 10:00 Dose: 100 mls/hr Potassium Chloride/Sodium Chloride (Normal Saline With 20 Meq Kcl) 1,000 mls @ 125 mls/hr IV Q8H [facility] Last Admin: 04/30/17 14:50 Dose: 125 mls/hr Pantoprazole Sodium 80 mg/ (Sodium Chloride) 100 mls @ 10 mls/hr IV Q10H [facility] Last Admin: 04/30/17 06:02 Dose: 10 mls/hr Ondansetron HCl (Zofran Odt) 4 mg PO Q4H PRN PRN Reason: nausea, able to take PO Polysaccharide Iron Complex (Ferrex 150) 150 mg PO TID [facility] Last Admin: 04/30/17 14:45 Dose: 150 mg Sodium Chloride (Saline Flush) 10 ml FLUSH ASDIRECTED PRN PRN Reason: Keep Vein Open Last Admin: 04/29/17 13:32 Dose: 10 ml Discontinued Medications Pantoprazole Sodium 80 mg/ (Sodium Chloride) 100 mls @ 200 mls/hr IV .BOLUS ONE Stop: 04/29/17 08:32 Last Admin: 04/29/17 08:55 Dose: 200 mls/hr Sodium Chloride (Normal Saline) 1,000 mls @ 125 mls/hr IV ASDIRECTED NANCY Last Admin: 04/29/17 08:09 Dose: 125 mls/hr Pantoprazole Sodium 80 mg/ (Sodium Chloride) 100 mls @ 10 mls/hr IV .Continuous ANNCY Stop: 04/29/17 19:59 Last Admin: 04/29/17 09:56 Dose: 10 mls/hr Phytonadione 5 mg/ Sodium (Chloride) 50.5 mls @ 100 mls/hr IV ONETIME ONE Stop: 04/29/17 09:15 Last Admin: 04/29/17 09:26 Dose: Not Given Lactated Ringer's (Ringers, Lactated) 1,000 mls @ 125 mls/hr IV ASDIRECTED [facility] Influenza Virus Vaccine (Fluzone Quad [id number]) 60 mcg IM .ONCE ONE Stop: 04/30/17 16:01 Ondansetron HCl (Zofran) 8 mg IVPUSH ONETIME ONE Stop: 04/29/17 08:04 Last Admin: 04/29/17 08:10 Dose: 8 mg *Q Meaningful Use (DIS) - VTE *Q VTE Criteria *Q: - Stroke *Q Stroke Criteria *Q: - AMI *Q AMI Criteria *Q:
--- NOTE | 2017-04-30 19:07 | OR ---
DATE OF OPERATION: 04/30/2017 SURGEON: Leodan Craven MD PREOPERATIVE DIAGNOSES: 1. Hematemesis. 2. Melena. POSTOPERATIVE DIAGNOSES: 1. Gastric ulcers of the pyloric channel. 2. Hiatal hernia. PROCEDURES: Esophagogastroduodenoscopy with biopsy. ANESTHESIA: IV sedation. PROCEDURE IN DETAIL: The patient was brought to the procedure room, where IV sedation was administered and the oral bite block placed. Upper endoscope was advanced into the esophagus under direct vision without difficulty. Vocal cords were viewed and were normal. The scope was advanced to the third portion of the duodenum. Duodenum was normal. In the pyloric channel were 2 ulcers, one measuring approximately 4 mm in diameter and the other larger one measuring approximately 8 mm in diameter. There was a white base present, but no visible vessel or evidence of recent bleeding. The remaining antrum and body were normal. Retroflexion reveals a moderate-sized hiatal hernia. The squamocolumnar junction appears normal. After the 2 biopsies were taken from the antrum, the air was removed from the stomach and the scope withdrawn through the remaining esophagus, which appears normal. The patient tolerated the procedure well and returned to recovery in stable condition. /[id number] 1900 MERLENE/KAYLA
== END 2017-04-30 17:08 | disposition home or self-care (01) | DRG 378 ==
LOC: FB.ED 07:41 → FB.ICU 08:53 → FB.MS 04-30 13:05
PROVIDERS: ADMIT Family Medicine; ATTEND Family Medicine
PROC: 30233K1 Transfusion of Nonautologous Frozen Plasma into Peripheral Vein, Percutaneous Approach (ICD-10-PCS; 2017-04-29)
PROC: 30233N1 Transfusion of Nonautologous Red Blood Cells into Peripheral Vein, Percutaneous Approach (ICD-10-PCS; 2017-04-29)
PROC: 0DB68ZX Excision of Stomach, Via Natural or Artificial Opening Endoscopic, Diagnostic (ICD-10-PCS; principal; 2017-04-30)
DX: K92.2 Gastrointestinal hemorrhage, unspecified (principal); D68.8 Other specified coagulation defects; I10 Essential (primary) hypertension; I25.10 Atherosclerotic heart disease of native coronary artery without angina pectoris; I48.91 Unspecified atrial fibrillation; Z79.01 Long term (current) use of anticoagulants; R53.1 Weakness; K92.1 Melena; R11.2 Nausea with vomiting, unspecified; Z79.82 Long term (current) use of aspirin; K25.9 Gastric ulcer, unspecified as acute or chronic, without hemorrhage or perforation; K44.9 Diaphragmatic hernia without obstruction or gangrene; E78.00 Pure hypercholesterolemia, unspecified; M19.90 Unspecified osteoarthritis, unspecified site; Z86.73 Personal history of transient ischemic attack (TIA), and cerebral infarction without residual deficits; Z91.041 Radiographic dye allergy status; K25.4 Chronic or unspecified gastric ulcer with hemorrhage; D64.9 Anemia, unspecified
CPT/HCPCS: 36415; 80048; 80076; 82150; 84484; 85025; 85610; 86850; 86900; 86901; 86920 ×2; 86922 ×2; 96361; 96374; 99285; J2405; J7040; 36430; 80053; 85014; 85018; 88305; 88342; 93005; A9270-GY; C9113; J2250; J2704; J3480; J7030; J7050; J7120; P9016; P9017

== ENCOUNTER 2019-02-10 12:24 | Emergency (ER) | payer MEDICARE, BC ==
--- NOTE | 2019-02-10 12:33 | EDM.PDOC ---
ED HPI GENERAL MEDICAL PROBLEM - General Stated Complaint: FELL [id number] LT KNEE PAIN Time Seen by Provider: 02/10/19 12:24 Source of Information: Reports: Patient, EMS, Family History Limitations: Reports: No Limitations - History of Present Illness INITIAL COMMENTS - FREE TEXT/NARRATIVE: 79 y.o.w.f came to the ED one day after she fell onto the pave way, after missing a step, onto her left anterior knee. yesterday. Pt noticed swelling and pain with movement left ant knee. No previous Bone frxs. Pt is on Coumadin, no open wound. No N/V/D no SOB. No other acute med issues. BP 147/81 Pulse 105 RR 15 Pulse ox 98% on RA Temp 36.6 Onset Date: 02/09/19 Onset Time: 18:00 Duration: Day(s):, Improving Location: Reports: Lower Extremity, Left Quality: Reports: Dull, Pressure Severity: Moderate Improves with: Reports: Rest Worsens with: Reports: Movement Context: Reports: Trauma Associated Symptoms: Reports: No Other Symptoms - Related Data Allergies Allergy/AdvReac Type Severity Reaction Status Date / Time Iodinated Contrast- Oral and Allergy Itching Verified 04/29/17 14:56 IV Dye Home Meds: Home Meds Carvedilol 12.5 mg PO DAILY 04/29/17 [History] Lovastatin [Mevacor] 40 mg PO DAILY 04/29/17 [History] Potassium Chloride [Klor-Con Sprinkle] 10 meq PO DAILY 04/29/17 [History] Acetaminophen/HYDROcodone [[place] 325-5 MG] 1 - 2 tab PO Q6H PRN #16 tab [Rx] Allopurinol [Zyloprim] 300 mg PO DAILY 02/10/19 [History] Ferrous Fumarate [Ferrocite] 324 mg PO DAILY 02/10/19 [History] Furosemide 80 mg PO DAILY 02/10/19 [History] Indomethacin 50 mg PO ASDIRECTED PRN 02/10/19 [History] Sertraline HCl 50 mg PO DAILY 02/10/19 [History] Warfarin Sodium [Jantoven] 2.5 mg PO DAILY 02/10/19 [History] Past Medical History HEENT History: Reports: Cataract Other HEENT History: L cataract Cardiovascular History: Reports: Afib, CAD, High Cholesterol, Hypertension Gastrointestinal History: Reports: GERD [employer] History: Reports: Musculoskeletal History: Reports: Arthritis, Fracture, Gout Other Musculoskeletal History: hx fx L ankle Neurological History: Reports: CVA Other Neuro History: mini-stroke Endocrine/Metabolic History: Reports: None Hematologic History: Reports: Blood Transfusion(s) - Infectious Disease History Infectious Disease History: Reports: Chicken Pox, Measles, Mumps - Past Surgical History Cardiovascular Surgical History: Reports: Other (See Below) Other Cardiovascular Surgeries/Procedures: heart valve repaired Musculoskeletal Surgical History: Reports: Other (See Below) Other Musculoskeletal Surgeries/Procedures:: L lower ankle surgery Social & Family History - Family History Family Medical History: Noncontributory - Caffeine Use Caffeine Use: Reports: None Review of Systems - Review of Systems Review Of Systems: See Below Constitutional: Reports: No Symptoms Eyes: Reports: No Symptoms Ears: Reports: No Symptoms Nose: Reports: No Symptoms Mouth/Throat: Reports: No Symptoms Respiratory: Reports: No Symptoms Cardiovascular: Reports: No Symptoms GI/Abdominal: Reports: No Symptoms Genitourinary: Reports: No Symptoms Musculoskeletal: Reports: Other (left knee pain, swelling) Skin: Reports: No Symptoms Neurological: Reports: No Symptoms Psychiatric: Reports: No Symptoms ED EXAM, GENERAL - Physical Exam Exam: See Below Exam Limited By: No Limitations General Appearance: Alert, WD/WN, Mild Distress Eye Exam: Bilateral Eye: Normal Inspection Ears: Normal External Exam Ear Exam: Bilateral Ear: Auricle Normal Nose: Normal Inspection, Normal Mucosa, No Blood Throat/Mouth: Normal Inspection, Normal Lips, Normal Voice, No Airway Compromise Head: Atraumatic, Normocephalic Neck: Normal Inspection, Supple, Non-Tender, Full Range of Motion Respiratory/Chest: No Respiratory Distress, Lungs Clear, Normal Breath Sounds Cardiovascular: Normal Peripheral Pulses, Regular Rate, Rhythm, No Edema Peripheral Pulses: 1+: Brachial (L) GI/Abdominal: Normal Bowel Sounds, Soft, Non-Tender (Female) Exam: Deferred Rectal (Female) Exam: Deferred Back Exam: Normal Inspection, Full Range of Motion Extremities: Joint Swelling (left knee), Limited Range of Motion (left knee) Neurological: Alert, Oriented, CN II-XII Intact, Normal Cognition, Abnormal Gait Psychiatric: Normal Affect, Normal Mood Skin Exam: Warm, Dry, Intact, Normal Color Lymphatic: No Adenopathy Course - Vital Signs Text/Narrative:: 79 y.o.w.f came to the ED one day after she fell onto the pave way, after missing a step, onto her left anterior knee. yesterday. Pt noticed swelling and pain with movement left ant knee. No previous Bone frxs. Pt is on Coumadin, no open wound. No N/V/D no SOB. No other acute med issues. BP 147/81 Pulse 105 RR 15 Pulse ox 98% on RA Temp 36.6 PE: WNWD W F with left knee pain Imaging: X Ray: Fx'd patella without significant displacement. Large suprapatellar joint effusion. Prepatellar soft tissue swelling. CT left knee: Acute comminuted multi directional left patellar Zfx with a 3 mm displacement at the articular surface. Hemarthrosis and SQ hemorrhage Impression: Fall, Acute comminuted multi directional left patellar Zfx with a 3 mm displacement at the articular surface. Hemarthrosis and SQ hemorrhage, closed Tx: Ice [place], Kne immobilizer, crutches. Reexam: Improved, was able to use walker Plan; D/C with instruction 1.52 pm: Consultation: Dr. Parsons, Ortho: Will call pt this Wednesday. For now, Left knee immobilizer and crutches Last Recorded V/S: Last Vital Signs Temp 36.7 C 02/10/19 15:30 Pulse 105 H 02/10/19 15:30 Resp 18 02/10/19 15:30 BP 106/74 02/10/19 15:30 Pulse Ox 95 02/10/19 15:30 - Orders/Labs/Meds Orders: Active Orders 24 hr Category Date Time Status Knee 3V Lt [CR] Stat Exams 02/10/19 12:57 Taken Lower Extremity wo Cont Lt [CT] Stat Exams 02/10/19 13:53 Taken Labs: Laboratory Tests 02/10/19 02/10/19 02/10/19 Range/Units 12:37 12:37 12:37 WBC 5.9 (4.5-12.0) X10-3/uL RBC 3.78 (3.23-5.20) x10(6)uL Hgb 12.9 (11.5-15.5) g/dL Hct 37.7 D (30.0-51.3) % MCV 99.6 H (80-96) fL MCH 34.2 H (27.7-33.6) pg MCHC 34.3 (32.2-35.4) g/dL RDW 14.8 (11.5-15.5) % Plt Count 99 L (125-369) X10(3)uL MPV 9.4 (7.4-10.4) fL Neut % (Auto) 79.8 (46-82) % Lymph % (Auto) 11.8 L (13-37) % [place] % (Auto) 7.6 (4-12) % Eos % (Auto) 0 L (1.0-5.0) % Baso % (Auto) 0 (0-2) % Neut # (Auto) 4.8 (1.6-8.3) # Lymph # (Auto) 0.7 (0.6-5.0) # [place] # (Auto) 0.4 (0.0-1.3) # Eos # (Auto) 0.0 (0.0-0.8) # Baso # (Auto) 0.0 (0.0-0.2) # PT 15.5 H (8.7-11.1) INR 1.61 H (0.89-1.13) Sodium 138 (135-145) mmol/L Potassium 3.4 L (3.5-5.3) mmol/L Chloride 99 L (100-110) mmol/L Carbon Dioxide 23 (21-32) mmol/L BUN 14 (7-18) mg/dL Creatinine 1.0 (0.55-1.02) mg/dL Est Cr Clr Drug Dosing 44.10 mL/min Estimated GFR (MDRD) 54 L (>60) BUN/Creatinine Ratio 14.0 (9-20) Glucose 100 (80-116) mg/dL Calcium 9.0 (8.6-10.2) mg/dL Meds: Medications Discontinued Medications Generic Name Dose Route Start Last Admin Trade Name Freq PRN Reason Stop Dose Admin Hydrocodone Bitart/Acetaminophen 1 tab 02/10/19 15:12 02/10/19 15:21 [place] 325-5 Mg PO 02/10/19 15:13 1 tab ONETIME ONE Administration Departure - Departure Time of Disposition: 15:13 Disposition: Home, Self-Care 01 Condition: Good Clinical Impression: Patella fracture Qualifiers: Encounter type: initial encounter Fracture type: closed Fracture morphology: comminuted Fracture alignment: displaced Laterality: left Qualified Code(s): S82.042A - Displaced comminuted fracture of left patella, initial encounter for closed fracture - Discharge Information Prescriptions: Acetaminophen/HYDROcodone [[place] 325-5 MG] 1 - 2 tab PO Q6H PRN #16 tab PRN Reason: for severe pain Instructions: Patellar Fracture, Adult Referrals: Evelio Muir MD [Primary Care Provider] - Fortino Parsons DO [Physician] - Forms: ED Department Discharge Additional Instructions: Rest, Ice and elevation, please apply left knee immobilize, use crutches. take Motrin for mod pain. [place] for sever pain. Please f/u with Dr. Parsons this Wednesday. Please come back if your symptoms get worse acutely. - My Orders Last 24 Hours: My Active Orders 02/10/19 12:57 Knee 3V Lt [CR] Stat 02/10/19 13:53 Lower Extremity wo Cont Lt [CT] Stat - Assessment/Plan Last 24 Hours: My Active Orders 02/10/19 12:57 Knee 3V Lt [CR] Stat 02/10/19 13:53 Lower Extremity wo Cont Lt [CT] Stat
[2019-02-10 12:46] VITALS: PULSE 105
[2019-02-10] MEDS ORDERED: Acetaminophen/HYDROcodone 325-5 MG Tab PO ONE (15:12)
[2019-02-10 18:20] VITALS: BP 106/74
== END 2019-02-10 15:39 | disposition home or self-care (01) ==
LOC: FB.ED 12:24
DX: S82.042A Displaced comminuted fracture of left patella, initial encounter for closed fracture (principal); I10 Essential (primary) hypertension; K21.9 Gastro-esophageal reflux disease without esophagitis; I48.91 Unspecified atrial fibrillation; Z86.73 Personal history of transient ischemic attack (TIA), and cerebral infarction without residual deficits; Z79.01 Long term (current) use of anticoagulants; Z79.899 Other long term (current) drug therapy; Z91.041 Radiographic dye allergy status; W10.9XXA Fall (on) (from) unspecified stairs and steps, initial encounter
CPT/HCPCS: 36415; 73562; 73700; 80048; 85025; 85610; 99284; A9270; 99283

== ENCOUNTER 2019-04-11 09:15 | Inpatient (IN) | payer MEDICARE, BC ==
[2019-04-11] MEDS ORDERED: Acetaminophen 325 MG Tab PO ONE (14:15)
[2019-04-11] MEDS ORDERED: Warfarin Sliding Scale PO SCH (14:45)
[2019-04-11] MEDS ORDERED: Warfarin 2.5 MG Tab PO SCH (17:45)
[2019-04-11] MEDS: Acetaminophen 325 MG Tab PO SCH (18:47)
[2019-04-11] MEDS: Cefuroxime 250 MG Tab PO SCH (21:06)
[2019-04-12] MEDS: Acetaminophen 325 MG Tab PO SCH ×6 (00:39→23:53)
[2019-04-12] MEDS: Furosemide 40 MG Tab PO SCH ×2 (08:32→16:07)
[2019-04-12] MEDS: Allopurinol 300 MG Tab PO SCH (08:33)
[2019-04-12] MEDS: Sertraline 50 MG Tab PO SCH (08:33)
[2019-04-12] MEDS: Potassium Chloride 10 MEQ Tab.ER PO SCH (08:34)
[2019-04-12] MEDS: Metoprolol Succinate 25 MG Tab.ER PO SCH (08:35)
[2019-04-12] MEDS: Cefuroxime 250 MG Tab PO SCH ×2 (08:39→20:28)
--- NOTE | 2019-04-12 11:06 | HP ---
ADMISSION DATE: 04/11/2019 REASON FOR VISIT: Rehab for left hip fracture. HISTORY OF PRESENT ILLNESS: Hardeep Estrella is a 79-year-old female, who was transferred from [facility] in [place]. She sustained a fall and fracture of her left hip on 04/07/2019. Was at home near her counter, turned, had exquisite pain, fell to the ground. Phone call away, attended to after short time, delay in getting into her home, transferred to [place] for treatment. She underwent surgical intervention. Discharged today for swing bed and intervention of care. ALLERGIES: Allergic to iodine contrast media with rash. Doing well in terms of well-being, pain 3/10. DAILY MEDICATIONS: 1. Indomethacin 50 mg one p.o. t.i.d. 2. Allopurinol 300 mg one p.o. daily, hyperuricemia. 3. Furosemide 40 mg 1 p.o. daily, heart. 4. Mevacor 40 mg 1 p.o. daily, hyperlipidemia. 5. Metoprolol-XL 25 mg one p.o. daily, rate control, atrial fib. 6. Potassium chloride 10 mEq daily, hypokalemia. 7. Sertraline 50 mg one p.o. daily, mood stabilizer. 8. Warfarin 2.5 mg as per protocol, atrial fibrillation. PAST MEDICAL HISTORY: Significant for previous open heart surgery and aortic valve repair, bypass x1. She has no other operative procedures, hospitalizations, unusual childhood diseases, major injuries, or fractures. Ongoing medical problems include mood disorder, hyperuricemia. She was on antibiotics for brief duration of time. Did have a left foot fracture due to a horse/sickle/mowing event at age 9. SOCIAL HISTORY: just in August 2018, heart related issues. Worked at [email or web address] for 30+ years. Two children, two sons, and a daughter of Js's syndrome at age 7. FAMILY HISTORY: Noncontributory. No early heart disease, diabetes mellitus, or inheritable cancers. REVIEW OF SYSTEMS: CONSTITUTIONAL: Feeling generally well. Pain 3/10. EYES: Sees well. Cataract left eye. EARS: Hears well. OROPHARYNX: Upper and lower dentures. CHEST: No cough, wheeze, or congestion. CARDIOVASCULAR: Denies chest pain, palpitations, or syncope. GASTROINTESTINAL: Regular predictable stools, no blood in stools. GENITOURINARY: Good voiding pattern. No blood in urine. SKIN: No open sores or lesions, bruising from Coumadin. ENDOCRINE: No excessive thirst or urination. ALLERGY: No allergies to iodine, otherwise specific. PSYCHOLOGICAL: Mood stable. PHYSICAL EXAMINATION: VITAL SIGNS: 36.7, pulse 116, 132/78, respirations 20, 99%. GENERAL: Appears comfortable, conversant, gives a good history. HEENT: Funduscopic benign. Early cataracts. Bright tympanic membranes. Clear nasal discharge. Mouth and oropharynx, clear. Upper and lower dentures in place. No intraoral lesions. Good gag reflex. NECK: Benign. Thyroid small. CHEST: Clear in all lung nguyen. No adventitious sounds. HEART: No ectopy or significant murmur. Sternotomy scar well healed. ABDOMEN: Benign. Drain sites upper abdomen. No hepatosplenomegaly. GENITOURINARY: Deferred. RECTAL: Deferred. EXTREMITIES: Well perfused, surgical site right lateral hip, 2 covered incisions viewed, moderate expected ecchymosis. ASSESSMENT: Postoperative left hip surgical repair. SECONDARY DIAGNOSES: 1. Hyperuricemia. 2. Open heart surgery, coronary artery bypass graft, valve repair. 3. History of bleeding ulcer. 4. Atrial fibrillation, chronic Coumadin therapy. PLAN: Hemoglobin was moderately low, 1 unit of blood, will check hemoglobin. Complementary care and well being, PT and OT involved. /[id number] CLAUDETTE/KAYLA
--- NOTE | 2019-04-12 11:09 | PN ---
DATE SEEN: 04/12/2019 SUBJECTIVE: Hardeep Estrella is a 79-year-old female, admitted yesterday to swing bed for intervention. Had a fracture on 04/07/2019, underwent surgical repair. Doing well. Pain 09/18. Hemoglobin was checked today, 8.1, stable. Discussed transfusions, declined appropriately. OBJECTIVE: VITAL SIGNS: 36.6, 104/66, 98 is the pulse; 18 is the respirations, 99. GENERAL: Appears comfortable. NECK: Benign. CHEST: Clear in all lung nguyen. HEART: No ectopy or murmur. ABDOMEN: Benign. Surgical site ecchymotic but without complicating issue. ASSESSMENT: Rehab, left hip fracture. PLAN: PT/OT. Pain medications on board. Complementary care and well being. /[id number] CLAUDETTE/KAYLA
--- OUTSIDE RECORDS SUMMARY | 2019-04-12 14:34 | XMSREPORT ---
:1940 Author Organization [facility] Address [address] [place] [address] Care Team Providers Name Role Phone Evelio Miur MD Primary Care Provider Evelio Muir MD Attributed Provider Reason for Referral (Routine) Status Reason Specialty Diagnoses / Procedures Referred By Contact Referred To Contact [facility] [address] [place] [address] Reason for Visit Reason Comments Hip Injury Pt arrives to the ED from home by [facility]. Pt states she had a fall tonight and landed on her left hip. Pts left leg is shortened and rotated. She rates her pain at 7/10 upon arrival to the ED. EMS gave pt 200 mcg of Fentanyl and 4 mg of Zofran [employer]. Pt did not hit her head/no LOC. Auth/Cert Status Reason Specialty Diagnoses / Procedures Referred By Contact Referred To Contact Encounter Details Date Type Department Care Team Description 04/07/2019 - [facility] Andrew Villalta MD [address] [place], [place] [id number] Closed displaced 04/11/2019 Encounter CENTER 6AB NEURO Ariana Burk MD [address] [place] [address] [phone] intertrochanteric [facility] Fernando Obrien MD [address] [place] [address] fracture of left femur [address] Latanya Garza MD [address] [place] [address] [phone] ([facility]) [place] [address] Allergies Active Allergy Reactions Severity Noted Date Comments Diagnostic X-Ray Materials Rash 02/12/2016 documented as of this encounter (statuses as of 04/11/2019) Medications Medication Sig Dispensed Refills Start End Status Date Date allopurinol Take 1 tablet (300 90 tablet 0 04/11/20 Active (ZYLOPRIM) 300 mg mg) by mouth 1 19 tabletIndications time per day : Acute gout of left hand, unspecified cause furosemide Take 1 tablet (40 30 tablet 0 04/11/20 Active (LASIX) 40 mg mg) by mouth 2 19 tabletIndications times a day : Chronic systolic congestive heart failure (HCC) indomethacin Take 1 capsule (50 84 capsule 0 04/11/20 Active (INDOCIN) 50 mg mg) by mouth 3 020 capsuleIndication times a day as s: Acute gout of needed (gout) left hand, unspecified cause potassium Take 1 capsule (10 30 capsule 0 04/11/20 Active chloride mEq) by mouth 1 19 (MICRO-K) 10 mEq time per day capsuleIndication s: Hypokalemia warfarin [facility] 90 tablet 3 04/11/20 Active (JANTOVEN) 2.5 MG Anticoagulation 19 tabletIndications Pt:Take as : S/P MVR (mitral directed. valve (Insurance replacement) Purposes: 1.25-2.5 mg daily dose range) Call [phone] if ? lovastatin Take 1 tablet (40 90 tablet 0 04/11/20 Active (MEVACOR) 40 mg mg) by mouth 1 19 tabletIndications time per day : Hyperlipidemia, unspecified hyperlipidemia type sertraline Take 1 tablet (50 30 tablet 1 04/11/20 Active (ZOLOFT) 50 mg mg) by mouth 1 020 tabletIndications time per day : Moderate episode of recurrent major depressive disorder (HCC) cefaclor (CECLOR) Take 1 capsule 10 capsule 0 04/11/20 Active 250 mg (250 mg) by mouth 19 019 capsuleIndication 2 times a day for s: Acute cystitis 10 doses without hematuria metoprolol Take 1 tablet (25 90 tablet 4 04/12/20 Active succinate (TOPROL mg) by mouth 1 020 XL) 25 mg SR time per day tablet (24 hr)Indications: Chronic atrial fibrillation Calcium Take 1 tablet by 0 Discontinued Carbonate-Vitamin mouth 1 time per 019 (entry level D (CALCIUM + D day. error) PO) allopurinol Take 1 tablet (300 90 tablet 3 12/24/19 Discontinued (ZYLOPRIM) 300 mg mg) by mouth 1 (Reorder) tabletIndications time per day : Acute gout of left hand, unspecified cause furosemide Take 0.5 tablets 90 tablet 3 12/24/19 Discontinued (LASIX) 80 mg (40 mg) by mouth 2 (Reorder) tabletIndications times a day : Chronic systolic congestive heart failure (HCC) indomethacin Take 1 capsule (50 21 capsule 3 12/24/19 Discontinued (INDOCIN) 50 mg mg) by mouth 3 (Reorder) capsuleIndication times a day as s: Acute gout of needed (gout) left hand, unspecified cause potassium TAKE 2 CAPSULES BY 180 capsule 3 12/24/19 Discontinued chloride MOUTH ONCE DAILY (Reorder) (MICRO-K) 10 mEq capsuleIndication s: Hypokalemia carVEDilol Take 1 tablet 90 tablet 3 12/24/19 Discontinued (COREG) 12.5 mg (12.5 mg) by mouth (Stop Taking at tabletIndications 1 time per day Discharge) : Essential hypertension lovastatin Take 1 tablet (40 90 tablet 0 12/24/19 Discontinued (MEVACOR) 40 mg mg) by mouth 1 (Reorder) tabletIndications time per day : Hyperlipidemia, unspecified hyperlipidemia type sertraline Take 1 tablet (50 90 tablet 4 12/24/19 Discontinued (ZOLOFT) 50 mg mg) by mouth 1 (Reorder) tabletIndications time per day : Moderate episode of recurrent major depressive disorder (HCC) warfarin [facility] 90 tablet 3 04/04/20 Discontinued (JANTOVEN) 2.5 MG Anticoagulation 19 019 (Reorder) tabletIndications Pt:Take as : S/P MVR (mitral directed. valve (Insurance replacement) Purposes: 1.25-2.5 mg daily dose range) Call [phone] if ? 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 Pulmonary nodule 01/14/2016 Abnormal finding on chest xray 01/14/2016 Non-rheumatic mitral regurgitation 01/06/2016 Last Assessment & Plan: May be severe. Plan VIVIEN and LHC. If severe then MVR I reviewed the risks and indications of coronary angiography and intervention with the patient. Risks include: 09/999 chance of , WA or CVA. Contrast nephropathy, dye allergy, bleeding and infecti on in the groin. The patient agreed, understood and consented. I reviewed the risks and indications of vivien with the patient. Risks include: Medication reaction, esophageal injury and The patient agreed, understood and consented. Chronic systolic congestive heart failure 07/10/2015 Transient cerebral ischemia 07/16/2008 Chronic atrial fibrillation 07/16/2008 Last Assessment & Plan: Has been in AF since June and is on Xaralto Other and unspecified hyperlipidemia 10/27/2007 Essential hypertension 10/27/2007 documented as of this encounter (statuses as of 04/11/2019) Immunizations Name Administration Dates Next Due FLU VACCINE HIGH DOSE 65YR+(Fluzone) 05/07/2017, 07/10/2016, 05/01/2015, 03/22/2014, 06/26/2013 Influenza Vaccine,unspecified 05/07/2017 Pneumococcal Conj PCV13 07/10/2016 Pneumococcal Polysaccharide PPSV23 03/25/2012 documented as of this encounter Social History Tobacco Use Types Packs/Day Years Used Date Never Smoker Smokeless Tobacco: Never Used Alcohol Use Drinks/Week oz/Week Comments Yes 0 Standard drinks or equivalent 14.0 - 21.0 Couple drinks every 14-21 Shots of liquor night/whiskey Sex Assigned at Date Recorded Not on file Job Start Date Occupation Industry Not on file Not on file Not on file Travel History Travel Start Travel End No recent travel history available. documented as of this encounter Last Filed Vital Signs Vital Sign Reading Time Taken Comments Blood Pressure 121/51 04/11/2019 8:14 AM CDT Pulse 128 04/11/2019 8:14 AM CDT Temperature 36.4 C (97.6 F) 04/11/2019 8:14 AM CDT Respiratory Rate 15 04/11/2019 8:14 AM CDT Oxygen Saturation 97% 04/11/2019 8:14 AM CDT Inhaled Oxygen Concentration - - Weight 67.9 kg (149 lb 11.1 oz) 04/07/2019 1:03 AM CDT Height 167.6 cm (5' 6") 04/07/2019 1:03 AM CDT Body Mass Index 24.16 04/07/2019 1:03 AM CDT documented in this encounter Functional Status Functional Status Response Date of Assessment Is the person deaf or does he/she have serious difficulty No 02/27/2016 hearing? Is this person blind or does he/she have difficulty No 02/27/2016 seeing even when wearing glasses? Do you have difficulty with walking, balance, climbing Yes 04/07/2019 stairs, or had a fall in the last 3 months? Does the patient have difficulty dressing or bathing? No 04/07/2019 Because of a physical, mental, or emotional condition; No 04/07/2019 does this person have difficulty doing errands alone such as visiting a doctor's office or shopping? Cognitive Status Response Date of Assessment Because of a physical, mental, or emotional condition; No 04/07/2019 does this person have serious difficulty concentrating, remembering, or making decisions? documented as of this encounter Discharge Summaries Not on filedocumented in this encounter Discharge Instructions Valentin Hurley, PHARM D - 04/11/2019You were admitted to the hospital because you have a hip fracture which was surgically repaired. You also had a urine infection. You will have a total of 5 days of pill antibiotics to complete. We stopped your coreg because you were only taking it once a day and replaced it with a new medicinethat is a sister of coreg called Metoprolol succinate ( Toprol XL). You will take 25 mg of this medication every morning. It only needs to to be taken once a day because it is longer acting. You should be treated for brittle bones because of this fracture. Please talk to your regular doctorabout having a Dexa Scan for osteoporosis and being treated with bone-building medication. Your hemoglobin is low and should be rechecked tomorrow, 04/12. It was 7.9 at discharge. If you haveany signs of bleeding you should let someone know right away. INR should be rechecked tomorrow. Itwas 2.7 today. Warfarin Discharge Instructions: Warfarin 1.25 mg dose given 04/11/19 in the hospital. Check INR tomorrow on 04/12/19 documented in this encounter Medications at Time of Discharge Medication Sig Dispensed Refills Start Date End Date allopurinol (ZYLOPRIM) Take 1 tablet (300 mg) 90 tablet 0 04/11/2019 300 mg by mouth 1 time per tabletIndications: day Acute gout of left hand, unspecified cause furosemide (LASIX) 40 Take 1 tablet (40 mg) 30 tablet 0 04/11/2019 mg tabletIndications: by mouth 2 times a day Chronic systolic congestive heart failure (HCC) indomethacin (INDOCIN) Take 1 capsule (50 mg) 84 capsule 0 04/11/201911/2019 50 mg by mouth 3 times a day capsuleIndications: as needed (gout) Acute gout of left hand, unspecified cause potassium chloride Take 1 capsule (10 30 capsule 0 04/11/2019 (MICRO-K) 10 mEq mEq) by mouth 1 time capsuleIndications: per day Hypokalemia warfarin (JANTOVEN) [facility] 90 tablet 3 04/11/2019 2.5 MG Anticoagulation tabletIndications: S/P Pt:Take as directed. MVR (mitral valve (Insurance Purposes: replacement) 1.25-2.5 mg daily dose range) Call [phone] if ? lovastatin (MEVACOR) Take 1 tablet (40 mg) 90 tablet 0 04/11/2019 40 mg by mouth 1 time per tabletIndications: day Hyperlipidemia, unspecified hyperlipidemia type sertraline (ZOLOFT) 50 Take 1 tablet (50 mg) 30 tablet 1 04/11/20192019 mg tabletIndications: by mouth 1 time per Moderate episode of day recurrent major depressive disorder (HCC) metoprolol succinate Take 1 tablet (25 mg) 90 tablet 4 04/12/20192019 (TOPROL XL) 25 mg SR by mouth 1 time per tablet (24 day hr)Indications: Chronic atrial fibrillation cefaclor (CECLOR) 250 Take 1 capsule (250 10 capsule 0 04/11/20192018 mg capsuleIndications: mg) by mouth 2 times a Acute cystitis without day for 10 doses hematuria documented as of this encounter Progress Notes Fernanda Guajardo PA - 04/10/2019 2:49 PM CDT ORTHOPAEDIC POST OPERATIVE PROGRESS NOTE April 10, 2019 POD # 3 Left hip TFN Patient of Dr. Augustin S: Marvel Malhotra is a 79yr female recovering from surgery, denies CP, SOB, N/V, Fever or Chills, numbness/tingling. Pain: 01/18, states oxycodone makes her feel loopy, was seeing lizards on the [place] this morning O: Temp Readings from Last 1 Encounters: 04/10/19 97.7 F (36.5 C) BP Readings from Last 1 Encounters: 04/10/19 114/62 Pulse Readings from Last 1 Encounters: 04/10/19 106 Gen: Patient lying in bed, alert and orientated, no apparent distress Incision: no drainage. Dressing C/D/I. left LEG: Warm, well perfused. ROM appropriate for post-op. Distal NVI. No erythema. Homans negative, no calf pain. Compartments soft. EHL/ PF/DF intact. Sensation intact Lab Results Component Value Date WBC 7.6 04/08/2019 NUCRBC 0 04/08/2019 RBC 2.82 (L) 04/08/2019 HEMOGLOBIN 8.9 (L) 04/10/2019 HEMATOCRIT 25.3 (L) 04/08/2019 MCV 89.7 04/08/2019 MCH 31.6 04/08/2019 MCHC 35.2 04/08/2019 PLTCOUNT 134 (L) 04/08/2019 NEUTROPCT 84.6 04/08/2019 LYMPHSPCT 9.3 04/08/2019 MONOSPCT 5.4 04/08/2019 EOSPCT 0.4 04/08/2019 BASOPHILPCT 0.3 04/08/2019 Lab Results Component Value Date INR 2.4 04/10/2019 A/P: 1. s/p Left hip TFN: DVT prophylaxis: coumadin, SCDs Pain control: oxycodone d/c'ed, will try norco instead Wound care: daily dry dressing changes PT/OT: continue; WBAT Activity: as tolerated; Disposition/planning: continue cares; Per Ortho, clear for discharge to appropriate setting when available and medically stable. Follow up: 2 weeks with [facility] and [address] Augustin 2. Acute Blood loss Anemia: Expected Kevin Valdez MD - 04/10/2019 11:40 AM CDT FAMILY MEDICINE DAILY PROGRESS NOTE Patient Name: Marvel Malhotra Admitted: 04/07/2019 Today's Date: 04/10/2019 Assessment and Plan Acute Medical Conditions: #Left intertrochanteric proximal femur fracture 2/2 mechanical fall s/p internal fixation with cephalomedullary nail POD #3 #Acute on Chronic anemia 2/2 blood loss 2/2 above s/p 2 unit PRBCs - stable -Pelvic xray was obtained which showed comminuted and displaced left intertrochanteric fracture withsuperior translation of the femoral shaft and varus angulation of the femoral head s/p internal fixation -Pt received a total of 2 Units of PRBCs -Hgb this am 8.9 which is stable -Ortho following: F/u in 2 weeks with [facility]; F/u in [address] Augustin; D/C to SNF -PT: recommending low-intensity facility #Urinary tract infection with urine cx (+) for E.coli - stable -UA was negative other than many bacteria; Urine Cx grew greater than 100K E. Coli -History of E coli infection in the past -Sensitivity still pending -Converted to PO Ceftin today #SUMIT - improving -Baseline Cr 0.87 to 1.05 -Cr today 1.02 -Restarting home lasix #Hyponatremia, asymptomatic -Na 130 on admission -Currently 132 this AM -Will continue to monitor #Hypokalemia - improving -K of 2.7 at admission -K of 3.4 this AM -Replaced with oral KCl Chronic Medical Conditions: HTN: Coreg was switched to Metoprolol XL 25 mg Persistent atrial fibrillation: Wafarin and Metoprolol; INR of 2.0 Chronic systolic heart failure: Contibue home Lasix; Will continue Metoprolol XL 25 mg w/hold parameters HLD: Continue Lovastatin 40mg PO daily Hx of mitral regurgitation s/p mitral valve repair Hx of TIA Gout: Discontinue Allopurinol 300mg due to SUMIT Depression: Continue Zoloft 50mg PO daily CODE STATUS: Full Code DVT Prophylaxis: Warfarin Diet: Regular Disposition: [place], [place] on Wednesday, early AM. Medications Current Facility-Administered Medications Medication Dose Route Frequency Provider Last Rate Last Dose cefuroxime (CEFTIN) tablet 250 mg 250 mg Oral 2 times a day Kevin Willingham MD 250 mg at 04/10/19922 metoprolol succinate (TOPROL XL) SR tablet (24 hr) 25 mg 25 mg Oral Daily Kevin Willingham MD 25 mg at 04/10/19 09 warfarin (COUMADIN) tablet 1.25 mg 1.25 mg Oral Warfarin 1 time dose Latanya Parker MD oxyCODONE (OXY-IR) tablet 5 mg 5 mg Oral Every 4 hours prn Lizzy Packer MD acetaminophen (TYLENOL) tablet 650 mg 650 mg Oral Every 6 hours Lizzy Packer MD sodium chloride 0.9% flush (adult) 10 mL 10 mL IV 2 times a day and prn Ariana Burk MD 10 mL at 04/10/19922 lovastatin (MEVACOR) tablet 40 mg 40 mg Oral daily Noah Joshi MD 40 mg at 04/10/19922 sertraline (ZOLOFT) tablet 50 mg 50 mg Oral daily Noah Joshi MD 50 mg at 04/10/19922 .Anticoagulation (WARFARIN) therapy nursing reminder 1 each Does not apply Reminder Kevin Willingham MD acetaminophen (TYLENOL) tablet 650 mg 650 mg Oral Every 4 hours prn Chi Delacruz PA-C 650 mgat 04/09/192131 senna-docusate sodium (SENOKOT-S;PERICOLACE) tablet 1 tablet 1 tablet Oral 2 times a day Chi Delacruz PA-C Stopped at 04/10/19922 polyethylene glycol (MIRALAX) packet 1 packet 1 packet Oral Daily Chi Delacruz PA-C Stopped at 04/10/19922 senna-docusate sodium (SENOKOT-S;PERICOLACE) tablet 1 tablet 1 tablet Oral 2 times a day prn Chi Delacruz PA-C bisacodyl (DULCOLAX) suppository 10 mg 10 mg Rectal 1 time a day prn Chi Delacruz PA-C ondansetron (ZOFRAN) injection solution 4 mg 4 mg IV Every 4 hours prn Chi Delacruz PA-C HYDROmorphone (DILAUDID) injection solution (conc: 0.5 mg/0.5mL) 0.5 mg 0.5 mg IV Every 1 hour prn Chi Delacruz PA-C hydrOXYzine pamoate (VISTARIL) capsule 25 mg 25 mg Oral Every 4 hours prn Chi Delacruz PA-C Chief Complaint CC/Brief History: Marvel Malhotra is a 79yo female w/PMH of HTN, a fib, syst CHF, hx mitral valve repair, HLD,and depression, who presented to ED after sustaining a fall. Pelvic xray was obtained which showed comminuted and displaced left intertrochanteric fracture with superior translation of the femoral shaft and varus angulation of the femoral head. Pt taken to OR 04/07/[address] Augustin. Interval History Interval History: POD # 3 today with no acute overnight events. Patient denies any pain at this time with lying still.Was able to work with PT yesterday and tolerated well. Tolerated oral food well this AM. Review of Systems Constitution: Negative for decreased appetite and fever. Cardiovascular: Negative for chest pain. Respiratory: Negative for cough and shortness of breath. Skin: Negative for rash. Musculoskeletal: Positive for joint pain. Negative for muscle weakness and myalgias. Gastrointestinal: Negative for abdominal pain, nausea and vomiting. Genitourinary: Negative for dysuria. Neurological: Negative for headaches. Psychiatric/Behavioral: Negative for altered mental status. Physical Exam Vitals: 04/10/19 0925 BP: 114/62 Pulse: 106 Resp: Temp: SpO2: 100% Physical Exam Constitutional: She is oriented to person, place, and time. She appears well- developed and well-nourished. HENT: Head: Normocephalic and atraumatic. Eyes: Conjunctivae are normal. Right eye exhibits no discharge. Left eye exhibits no discharge. Neck: Normal range of motion. No JVD present. Cardiovascular: Irregularly irregular Pulmonary/Chest: Effort normal and breath sounds normal. Abdominal: Soft. There is no tenderness. Musculoskeletal: She exhibits tenderness. Bandage over L hip has clear, yellow drainage; Ecchymosis has spread to lateral and posterior area of left knee; Neurological: She is alert and oriented to person, place, and time. Skin: Skin is warm. Psychiatric: She has a normal mood and affect. Nursing note and vitals reviewed. Labs were reviewed. All pertinent positives and negatives are reflected in the assessment and plan Medical Decision making Reviewed: previous chart, nursing note and vitals Reviewed previous: labs Kevin Willingham MD Pager #[phone] PGY-2, Department of Family Medicine [place], [place] Associated attestation - Latanya Garza MD - 04/10/2019 12:46 PM CDT I discussed the patient with the resident and personally interviewed and examined the patient. I verified in the medical record all resident documentation/findings, including history, physical exam, and medical decision making, and I agree with the resident's documentation. MD Jayme Duvall Joshua, PA-C - 04/09/2019 9:16 AM CDT Orthopedic Daily Progress Note: Assessment: Marvel Malhotra is a 79yr old female 2 Days Post-Op, S/P: Procedure(s): LEFT TFN WITH SYNTHES Subjective: Doing well. Pain 5/10 overall controlled. No issues overnight. Objective: Current Vital Signs Temp: 97.4 F (36.3 C) BP: 98/55 Pulse: 93 O2 Device: Room Air O2 Flow Rate (L/min): 2 l/min Resp: 16 Pain Ratin (out of 10) Weight: 67.9 kg (149 lb 11.1 oz) SpO2: 95 % Maximum Temperatures (last 24 hours) Temperature Maximum Max Temp 97.9 F (36.6 C) Dressing and incision clean, dry and intact. Neurovascular intact. Lab Results Component Value Date HEMOGLOBIN 8.4 (L) 04/09/2019 , Lab Results Component Value Date INR 2.0 04/09/2019 PT 22.3 (H) 04/09/2019 Plan: Continue PT WBAT, Pain Meds, and DVT Prophylaxis with lovenox. Will require SNF upon dischargemost likely in [place]. Kevin Valdez MD - 04/09/2019 7:30 AM CDT FAMILY MEDICINE DAILY PROGRESS NOTE Patient Name: Marvel Malhotra Admitted: 04/07/2019 Today's Date: 04/09/2019 Assessment and Plan Acute Medical Conditions: #Left intertrochanteric proximal femur fracture 2/2 mechanical fall s/p internal fixation with cephalomedullary nail POD#2 #Acute on Chronic anemia 2/2 blood loss 2/2 above s/p 2 unit PRBCs -Pelvic xray was obtained which showed comminuted and displaced left intertrochanteric fracture withsuperior translation of the femoral shaft and varus angulation of the femoral head. -Pt received a total of 2 Units of PRBCs -Hgb this am 8.4 which is stable - Ortho following: F/u in 2 weeks with [facility]; F/u in [address] Augustin; D/C to SNF - PT: will make final OP rec'd - Transfuse in Hgb < 7 #Urinary tract infection with urine cx (+) for E.coli - UA was negative other than many bacteria; Urine Cx grew greater than 100K E. Coli - History of E coli infection in the past - Sensitivity still pending - Will start CTX 1 G daily #SUMIT - improving -Baseline Cr 0.87 to 1.05 -Cr today 1.25 -Continue holding lasix -Gentle IVF hydration #Hyponatremia, asymptomatic -Na 130 on admission -Currently 132 this AM -Will continue to monitor #Hypokalemia, resolved - K of 2.7 at admission - K of 3.5 this AM Chronic Medical Conditions: HTN: Coreg was switched to Metoprolol 12.5 mg BID Persistent atrial fibrillation: Wafarin and Metoprolol; INR of 2.0 Chronic systolic heart failure: Hold home Lasix; Will continue Metoprolol 12.5 mg BID w/hold parameters HLD: Continue Lovastatin 40mg PO daily Hx of mitral regurgitation s/p mitral valve repair Hx of TIA Gout: Holding home Allopurinol 300mg due to SUMIT Depression: Continue Zoloft 50mg PO daily CODE STATUS: Full Code DVT Prophylaxis: Warfarin Diet: Regular Disposition: Awaiting recs from therapy. Likely d/c 04/10. Wants to be profiled to [facility] Medications Current Facility-Administered Medications Medication Dose Route Frequency Provider Last Rate Last Dose warfarin (COUMADIN) tablet 2.5 mg 2.5 mg Oral Warfarin 1 time dose Fernando Obrien MD cefTRIAXone (ROCEPHIN) 1000 mg/10 mL IV syringe in sterile water 1,000 mg IV Every 24 hours Kevin Willingham MD metoprolol tartrate (LOPRESSOR) half-tablet 12.5 mg 12.5 mg Oral 2 times a day Lizzy Hernández MD 12.5 mg at 04/09/19 0948 sodium chloride 0.9% flush (adult) 10 mL 10 mL IV 2 times a day and prn Ariana Burk MD 10 mL at 04/09/19 0948 lovastatin (MEVACOR) tablet 40 mg 40 mg Oral daily Noah Joshi MD 40 mg at 04/09/19 0948 sertraline (ZOLOFT) tablet 50 mg 50 mg Oral daily Noah Joshi MD 50 mg at 04/09/19 0948 acetaminophen (TYLENOL) tablet 1,000 mg 1,000 mg Oral Every 6 hours Sharon Arce MD 1,000 mg at 04/09/19 0618 .Anticoagulation (WARFARIN) therapy nursing reminder 1 each Does not apply Reminder Kevin Willingham MD acetaminophen (TYLENOL) tablet 650 mg 650 mg Oral Every 4 hours prn Chi Delacruz PA-C senna-docusate sodium (SENOKOT-S;PERICOLACE) tablet 1 tablet 1 tablet Oral 2 times a day Chi Delacruz PA-C 1 tablet at 04/09/19 0948 polyethylene glycol (MIRALAX) packet 1 packet 1 packet Oral Daily Chi Delacruz PA-C 1 packetat 04/09/19 0948 senna-docusate sodium (SENOKOT-S;PERICOLACE) tablet 1 tablet 1 tablet Oral 2 times a day prn Chi Delacruz PA-C bisacodyl (DULCOLAX) suppository 10 mg 10 mg Rectal 1 time a day prn Chi Delacruz PA-C ondansetron (ZOFRAN) injection solution 4 mg 4 mg IV Every 4 hours prn Chi Delacruz PA-C oxyCODONE (OXY-IR) tablet 5 mg 5 mg Oral Every 4 hours prn Chi Delacruz PA -C 5 mg at 04/09/19 0327 Or oxyCODONE (OXY-IR) tablet 10 mg 10 mg Oral Every 4 hours prn Chi Delacruz PA-C 10 mg at 04/09/19 0947 HYDROmorphone (DILAUDID) injection solution (conc: 0.5 mg/0.5mL) 0.5 mg 0.5 mg IV Every 1 hour prn Chi Delacruz PA-C hydrOXYzine pamoate (VISTARIL) capsule 25 mg 25 mg Oral Every 4 hours prn Chi Delacruz PA-C Chief Complaint CC/Brief History: Marvel Malhotra is a 79yo female w/PMH of HTN, a fib, syst CHF, hx mitral valve repair, HLD,and depression, who presented to ED after sustaining a fall. Pelvic xray was obtained which showed comminuted and displaced left intertrochanteric fracture with superior translation of the femoral shaft and varus angulation of the femoral head. Pt taken to OR 04/07/[address] Augustin. Interval History Interval History: No acute overnight events. Pt does report she is less sore on her L hip. Was able to work with PT yesterday. Tolerating oral food. No BM since surgery. Review of Systems Constitution: Negative for decreased appetite and fever. Cardiovascular: Negative for chest pain. Respiratory: Negative for cough and shortness of breath. Skin: Negative for rash. Musculoskeletal: Positive for joint pain, muscle weakness and myalgias. Gastrointestinal: Negative for abdominal pain, nausea and vomiting. Genitourinary: Negative for dysuria. Neurological: Negative for headaches. Psychiatric/Behavioral: Negative for altered mental status. Physical Exam Blood pressure 98/55, pulse 93, temperature 97.4 F (36.3 C), resp. rate 16, height 167.6 cm (66"), weight 67.9 kg (149 lb 11.1 oz), SpO2 95 %. Physical Exam Constitutional: She is oriented to person, place, and time. She appears well- developed and well-nourished. HENT: Head: Normocephalic and atraumatic. Eyes: Conjunctivae are normal. Right eye exhibits no discharge. Left eye exhibits no discharge. Neck: Normal range of motion. No JVD present. Cardiovascular: Irregularly irregular Pulmonary/Chest: Effort normal and breath sounds normal. Abdominal: Soft. There is no tenderness. Musculoskeletal: She exhibits tenderness. Bandage over L hip has clear, yellow drainage; Ecchymosis has spread to lateral and posterior area of left knee; Neurological: She is alert and oriented to person, place, and time. Skin: Skin is warm. Psychiatric: She has a normal mood and affect. Nursing note and vitals reviewed. Labs were reviewed. All pertinent positives and negatives are reflected in the assessment and plan Medical Decision making Reviewed: previous chart, nursing note and vitals Reviewed previous: labs Kevin Willingham MD Pager #[phone] PGY-2, Department of Family Medicine [place], [place] Associated attestation - Fernando Obrien MD - 04/09/2019 11:32 AM CDTMsJohnsonMalhotra was seen and discussed with ; I personally interviewed and examined the patient. I agree with 's diagnosis and management. 79yr female with PMH of HTN; DLD; Depression; Persistent Afib ([id number] score =7, on Warfarin at home); HFpEF (EF55%); h/o Mitral Valve Repair for Mr; h/o TIA ; and Gout, admitted after a mechanical fall c/b Left Hip Fx s/p Internal Fixation with Cephalo-medullary Nail on 04/07/19. --Tolerated procedure well/ Participating in PT/OT --Acute blood loss anemia 2/2 surgical blood loss, requiring pRBC transfusion, stable/monitor H&H. --SUMIT 2/2 dehydration, improving. --E.Coli UTI,susceptibilities pending, on Ceftriaxone. --Case management to help for rehab placement. Fernando Obrien MD, MPHRe Phillips, MILL OPERATOR-CAR LUBRICATOR - 04/08/2019 8:49 AM CDT ORTHOPEDIC POST OPERATIVE PROGRESS NOTE April 08, 2019 POD # 1 Left TFN Patient of Dr. Augustin S: Marvel Malhotra is a 79yr female recovering from surgery, denies CP, SOB, N/V, Fever or Chills, numbness/tingling. Hasn't ate since surgery PT/OT: Patient has dangled at beside which she reports went well. Hasn't worked with therapy yet Pain: patient reports at times with movement her pain is around a 7 but feels her current medications are managing it well. No BM noted since surgery. Is passing flatus. Urinating without difficulty. O: Temp Readings from Last 1 Encounters: 04/08/19 97.6 F (36.4 C) BP Readings from Last 1 Encounters: 04/08/19 95/52 Pulse Readings from Last 1 Encounters: 04/08/19 76 Gen: patient resting comfortably in bed, alert and orientated, no apparent distress Incision: no drainage. Dressing C/D/I. left HIP: Warm, well perfused. Brisk capillary refill noted. Scattered ecchymosis throughout thigh. Sensation intact to light touch. Homans negative, no calf pain bilaterally. Compartments soft and compressible. DP and PT pulses are palpable. Motor grossly intact, able to PF/DF ankle and wiggle toes. Lab Results Component Value Date WBC 7.6 04/08/2019 NUCRBC 0 04/08/2019 RBC 2.82 (L) 04/08/2019 HEMOGLOBIN 8.9 (L) 04/08/2019 HEMOGLOBIN 8.9 (L) 04/08/2019 HEMATOCRIT 25.3 (L) 04/08/2019 MCV 89.7 04/08/2019 MCH 31.6 04/08/2019 MCHC 35.2 04/08/2019 PLTCOUNT 134 (L) 04/08/2019 NEUTROPCT 84.6 04/08/2019 LYMPHSPCT 9.3 04/08/2019 MONOSPCT 5.4 04/08/2019 EOSPCT 0.4 04/08/2019 BASOPHILPCT 0.3 04/08/2019 Lab Results Component Value Date INR 1.6 (L) 04/08/2019 A/P: 1. s/p Left TFN: DVT prophylaxis: Lovenox Pain control: continue same, ice as needed Wound care: leave dressing in place for 48-72 hours post op PT/OT: continue; WBAT Activity: as tolerated; Disposition/planning: continue cares; Follow up: 2 weeks with [facility] and [address] Augustin 2. Acute Blood loss Anemia: Expected [facility] Pager #[phone] Lizzy Maher MD - 04/08/2019 7:37 AM CDT FAMILY MEDICINE DAILY PROGRESS NOTE Patient Name: Marvel Malhotra Admitted: 04/07/2019 Today's Date: 04/08/2019 Assessment and Plan Acute Medical Conditions: #Left intertrochanteric proximal femur fracture 2/2 mechanical fall s/p internal fixation with cephalomedullary nail POD#1 #Acute on Chronic anemia 2/2 blood loss 2/2 above s/p 2 unit PRBCs -Pelvic xray was obtained which showed comminuted and displaced left intertrochanteric fracture withsuperior translation of the femoral shaft and varus angulation of the femoral head. -Pt received 1 unit PRBCs pre-op and 1 intra op. -Hgb this am 8.9, stable Plan: - pain control - Ortho following - PT working w/pt - transfuse in Hgb < 7 - will need to see [facility] in [address] Augustin in 6 wks #SUMIT -Baseline Cr 0.87 to 1.05 -Cr today 1.47 Plan: -holding lasix -gentle IVF hydration #Hyponatremia -Na 130 on admission. Currently 131. Asymptomatic. Plan: -monitor #Hypokalemia, resolved Chronic Medical Conditions: HTN: cont coreg HLD: continue Lovastatin 40mg PO daily Depression: continue Zoloft 50mg PO daily Persistent atrial fibrillation: Wafarin and coreg. INR 1.6. Chronic systolic heart failure: hold home Lasix. Will continue Coreg 12.5 mg BID w/hold parameters Hx of mitral regurgitation s/p mitral valve repair Hx of TIA Gout: continue Allopurinol 300mg daily CODE STATUS: Full Code DVT Prophylaxis: warfarin Therapies: PT Diet: Reg Disposition: Awaiting recs from therapy. Likely d/c 04/10. Chief Complaint CC/Brief History: Marvel Malhotra is a 79yo female w/PMH of HTN, a fib, syst CHF, hx mitral valve repair, HLD,and depression, who presented to ED after sustaining a fall. Pelvic xray was obtained which showed comminuted and displaced left intertrochanteric fracture with superior translation of the femoral shaft and varus angulation of the femoral head. Pt taken to OR 04/07/[address] Augustin. Interval History Interval History: No acute overnight events. Pt does report she is sore on her L hip. She was able to dangle her legs yesterday. Has not worked w/PT yet this morning. She also has not ordered breakfast yet, but her diethas been advanced. Review of Systems Constitution: Negative for decreased appetite and fever. Cardiovascular: Negative for chest pain. Respiratory: Negative for cough and shortness of breath. Skin: Negative for rash. Musculoskeletal: Positive for joint pain, muscle weakness and myalgias. Gastrointestinal: Negative for abdominal pain, nausea and vomiting. Genitourinary: Negative for dysuria. Neurological: Negative for headaches. Psychiatric/Behavioral: Negative for altered mental status. Physical Exam Blood pressure 94/57, pulse 81, temperature 97.5 F (36.4 C), resp. rate 16, height 167.6 cm (66"), weight 67.9 kg (149 lb 11.1 oz), SpO2 100 %. Physical Exam Constitutional: She is oriented to person, place, and time. She appears well- developed and well-nourished. HENT: Head: Normocephalic and atraumatic. Eyes: Conjunctivae are normal. Neck: Normal range of motion. Cardiovascular: Irregularly irregular Pulmonary/Chest: Effort normal and breath sounds normal. Abdominal: Soft. There is no tenderness. Musculoskeletal: She exhibits tenderness. Bandage over L hip is clean, dry, and intact Neurological: She is alert and oriented to person, place, and time. Skin: Skin is warm. Psychiatric: She has a normal mood and affect. Nursing note and vitals reviewed. Labs were reviewed. All pertinent positives and negatives are reflected in the assessment and plan Current Facility-Administered Medications: sodium chloride 0.9% flush (adult) 10 mL, 10 mL, IV, 2 times a day and prn , Ariana Burk MD, 10 mL at 04/07/19 212 sodium chloride 0.9% IV solution, , IV, Continuous, Ariana Burk MD, Last Rate: 100 mL/hr at 04/07/19 1821 lovastatin (MEVACOR) tablet 40 mg, 40 mg, Oral, daily, Noah Joshi MD , 40 mg at 04/07/19 0938 sertraline (ZOLOFT) tablet 50 mg, 50 mg, Oral, daily, Noah Joshi MD , 50 mg at 04/07/19 0933 acetaminophen (TYLENOL) tablet 1,000 mg, 1,000 mg, Oral, Every 6 hours, Sharon Arce MD, 1,000 mg at 04/08/19 0613 sodium chloride 0.9% IV solution flush bag, , IV, Continuous, Kevin Willingham MD .Anticoagulation (WARFARIN) therapy nursing reminder, 1 each, Does not apply, Reminder, Kevin Willingham MD metoprolol tartrate (LOPRESSOR) tablet 25 mg, 25 mg, Oral, 2 times a day, Kevin Willingham MD acetaminophen (TYLENOL) tablet 650 mg, 650 mg, Oral, Every 4 hours prn, Voth, Chi, PA-C senna-docusate sodium (SENOKOT-S;PERICOLACE) tablet 1 tablet, 1 tablet, Oral, 2 times a day, Chi Delacruz PA-C, 1 tablet at 04/07/192136 polyethylene glycol (MIRALAX) packet 1 packet, 1 packet, Oral, Daily, Chi Delacruz PA-C senna-docusate sodium (SENOKOT-S;PERICOLACE) tablet 1 tablet, 1 tablet, Oral, 2 times a day prn, Chi Delacruz PA-C bisacodyl (DULCOLAX) suppository 10 mg, 10 mg, Rectal, 1 time a day prn, Chi Delacruz PA-C ondansetron (ZOFRAN) injection solution 4 mg, 4 mg, IV, Every 4 hours prn, Chi Delacruz PA-C sodium chloride 0.9% IV solution, , IV, Continuous, Chi Delacruz PA-C, Last Rate: 75 mL/hr at 04/07/19 2126 oxyCODONE (OXY-IR) tablet 5 mg, 5 mg, Oral, Every 4 hours prn OR oxyCODONE (OXY-IR) tablet 10 mg, 10 mg, Oral, Every 4 hours prn, Chi Delacruz PA-C, 10 mg at 04/07/19 2333 HYDROmorphone (DILAUDID) injection solution (conc: 0.5 mg/0.5mL) 0.5 mg, 0.5 mg, IV, Every 1 hour prn, Chi Delacruz PA-C hydrOXYzine pamoate (VISTARIL) capsule 25 mg, 25 mg, Oral, Every 4 hours prn, Chi Delacruz PA-C ceFAZolin (ANCEF) 2000 mg/20 mL sterile water IV syringe, 2,000 mg, IV, Every 8 hours, Chi Delacruz PA-C, 2,000 mg at 04/08/19 0400 Medical Decision making Reviewed: previous chart, nursing note and vitals Reviewed previous: labs Lizzy Hernández MD Pager #[phone] PGY-3, Department of Family Medicine [facility], [place] 04/08/2019 7:37 AM Associated attestation - Fernando Obrien MD - 04/09/2019 11:20 AM CDTMsDolly was seen and discussed with ; I personally interviewed and examined the patient. I agree with 's diagnosis and management. 79yr female with PMH of HTN; DLD; Depression; Persistent Afib ([id number] score =7, on Warfarin at home); HFpEF (EF55%); h/o Mitral Valve Repair for Mr; h/o TIA ; and Gout, admitted after a mechanical fall c/b Left Hip Fx s/p Internal Fixation with Cephalo-medullary Nail on 04/07/19. --Tolerated procedure well/ Participating in PT/OT --Acute blood loss anemia 2/2 surgical blood loss, requiring pRBC transfusion, stable/monitor H&H. --SUMIT 2/2 dehydration, improving. --E.Coli UTI,susceptibilities pending --Case management to help for rehab placement. Fernando Obrien MD, MPHDryforkValentin harvey, PHARM D - 04/07/2019 12:14 PM CDT Warfarin Initial Consult Note Ms. Malhotra has been initiated on warfarin per pharmacy protocol for A.fib. Desired goal INR is 2-3. Patient has previously been on anticoagulation therapy. Previous dose was 1.25 mg every M, F; 2.5 mg all other days, per anticoagulation clinic. Labs: Lab Results Component Value Date INR 1.3 (L) 04/07/2019 PT 15.8 (H) 04/07/2019 Protime Date/Time Value Ref Range Status 04/07/2019 01:32 AM 15.8 (H) 12.0 - 14.5 secs Final 03/06/2016 05:36 AM 18.7 (H) 12.0 - 14.5 secs Final 03/05/2016 04:57 PM 18.9 (H) 12.0 - 14.5 secs Final INR Date/Time Value Ref Range Status 04/07/2019 01:32 AM 1.3 (L) 2.0 - 3.5 Final 04/04/2019 10:02 AM 1.2 (L) 2.0 - 3.5 Final 01/31/2019 11:45 AM 1.6 (L) 2.0 - 3.5 Final Platelet Count Date/Time Value Ref Range Status 04/07/2019 01:32 AM 214 140 - 400 K/uL Final 07/02/2014 10:35 AM 109 (L) 140 - 400 K/uL Final 06/23/2013 09:29 AM 94 (L) 150 - 400 K/uL Final Hemoglobin Date/Time Value Ref Range Status 04/07/2019 11:13 AM 6.7 (LL) 11.5 - 15.8 g/dL Final 03/02/2016 09:46 AM 9.0 (L) 11.5 - 15.8 g/dL Final 06/23/2013 09:29 AM 12.7 11.5 - 15.5 g/dL Final Plan: Warfarin: 1.25 mg today AFTER surgery. Pharmacy will monitor and if indicated, adjust dose per the anticoagulation policy. Thank you very much for the consult. Valentin Javier, PHARM D documented in this encounter Plan of Treatment Date Type Specialty Care Team Description 04/20/2019 Office Visit Family [facility] [address] [facility] [address] [phone] 04/21/2019 Office Visit Orthopedics Jaron Garcia PA [address] [place] [address] [phone] 05/19/2019 Office Visit Orthopedics Nilo Augustin MD [address] [place] [address] [phone] Name Type Priority Associated Diagnoses Order Schedule HEMOGLOBIN Lab Routine Anemia, unspecified type Expected: 04/12/2019 ( Approximate), Expires: 05/11/2020 Name Type Priority Associated Diagnoses Order Schedule HOSPITAL DISCHARGE Referral Routine Once for 1 Occurrences WARFARIN ANTICOAG starting 04/11/2019 ORDER until 04/11/2019 documented as of this encounter Implants Implanted Type Area Hedis Abstractor Device Shelf Model / Identifier Expiration Serial / Date Lot Franky Armstrong 31mm N Tarp-31 Ea - [id number] Cardiovascular N/A: ST RENNY 02/18/2020 TARP-31 / Implanted: Qty: 1 on 03/02/2016 by Jennifer Mcnally MD at [facility] [id number] / Description:Verified per Dr. Ulloa Sut Steel 6 Ccs 4-18 N M654g Bx12/Ea - [id number] Implant Surgical N/A: STERNUM J&J ETHICON, [id number] / Implanted: Qty: 8 on 03/02/2016 by Jennifer Mcnally MD at [facility] Suture[employer]Wire [employer] / Nail Tfna Ti 130d [id number] N 04.037.042s Ea1 - [id number] Ortho Other Left : FEMUR J&J DEPUY 01/08/ 04.037.042S / Implanted: Qty: 1 on 04/07/2019 by Nilo Augustin MD at [facility] SYNTHES 029 04.037.042S / [id number] Blade Fen Hel Tfna Ti 105mm N 04.038.405 Ea1 - [id number] Ortho Other Left: FEMUR J&J DEPUY 04.038.405 / Implanted: Qty: 1 on 04/07/2019 by Nilo Augustin MD at [facility] SYNTHES 04.038.405 / 04.038.405 Screw Lk Ti Nail 5x36mm N 04.005.526 Ea1 - [id number] Ortho Other Left: FEMUR J&J DEPUY 04.005.526 / Implanted: Qty: 1 on 04/07/2019 by Nilo Augustin MD at [facility] SY[employer] 04.005.526 / 04.005.526 Explanted Type Area Hedis Abstractor Device Shelf Model / Identifier Expiration Serial / Date Lot Gdwire [id number] N 357.399 Ea1 - [id number] Ortho Left: J&J DEPUY 357.399 / Explanted: Qty: 1 on 04/07/2019 by Nilo Augustin MD at [facility] Other FEMUR SYNTHES 357.399 / 357.399 documented as of this encounter Procedures Procedure Name Priority Date/Time Associated Diagnosis Comments LAB ONLY-COMPLETE Routine 04/11/2019 Results for BLOOD COUNT WITH 7:01 AM CDT this procedure DIFFERENTIAL are in the results section. PROTIME/INR Timed Routine 04/11/2019 Results for 7:01 AM CDT this procedure are in the results section. BASIC METABOLIC Routine 04/11/2019 Results for PANEL 7:01 AM CDT this procedure are in the results section. LAB ONLY-COMPLETE Routine 04/11/2019 Results for BLOOD COUNT WITH 7:01 AM CDT this procedure DIFFERENTIAL are in the results section. HEMOGLOBIN Timed Routine 04/10/2019 Results for 11:18 AM CDT this procedure are in the results section. PROTIME/INR Timed Routine 04/10/2019 Results for 5:42 AM CDT this procedure are in the results section. HEMOGLOBIN Timed Routine 04/10/2019 Results for 5:42 AM CDT this procedure are in the results section. BASIC METABOLIC Routine 04/10/2019 Results for PANEL 5:42 AM CDT this procedure are in the results section. HEMOGLOBIN Timed Routine 04/09/2019 Results for 11:18 PM CDT this procedure are in the results section. HEMOGLOBIN Timed Routine 04/09/2019 Results for 5:47 PM CDT this procedure are in the results section. HEMOGLOBIN Timed Routine 04/09/2019 Results for 12:04 PM CDT this procedure are in the results section. BASIC METABOLIC Routine 04/09/2019 Results for PANEL 7:53 AM CDT this procedure are in the results section. PROTIME/INR Timed Routine 04/09/2019 Results for 6:35 AM CDT this procedure are in the results section. HEMOGLOBIN Timed Routine 04/09/2019 Results for 6:35 AM CDT this procedure are in the results section. HEMOGLOBIN Timed Routine 04/08/2019 Results for 11:13 PM CDT this procedure are in the results section. HEMOGLOBIN Timed Routine 04/08/2019 Results for 6:21 PM CDT this procedure are in the results section. HEMOGLOBIN Timed Routine 04/08/2019 Results for 11:32 AM CDT this procedure are in the results section. BASIC METABOLIC Routine 04/08/2019 Results for PANEL 8:14 AM CDT this procedure are in the results section. PROTIME/INR Timed Routine 04/08/2019 Results for 7:43 AM CDT this procedure are in the results section. LAB ONLY-COMPLETE Routine 04/08/2019 Results for BLOOD COUNT WITH 4:53 AM CDT this procedure DIFFERENTIAL are in the results section. HEMOGLOBIN Timed Routine 04/08/2019 Results for 4:53 AM CDT this procedure are in the results section. LAB ONLY-COMPLETE Routine 04/08/2019 Results for BLOOD COUNT WITH 4:53 AM CDT this procedure DIFFERENTIAL are in the results section. HEMOGLOBIN Timed Routine 04/07/2019 Results for 11:52 PM CDT this procedure are in the results section. XRAY C-ARM Routine 04/07/2019 Results for 7:46 PM CDT this procedure are in the results section. PREPARE AND HOLD RED STAT 04/07/2019 Results for BLOOD CELLS IN UNITS 6:57 PM CDT this procedure - BLOOD BANK are in the results section. NAILING 04/07/2019 Closed INTRAMEDULLARY FEMUR 6:37 PM CDT intertrochanteric fracture of left hip (HCC) GLUCOSE BY METER, Routine 04/07/2019 Results for POCT 5:21 PM CDT this procedure are in the results section. PROTIME/INR Routine 04/07/2019 Results for 4:50 PM CDT this procedure are in the results section. HEMOGLOBIN Timed Routine 04/07/2019 Results for 4:50 PM CDT this procedure are in the results section. TRANSFUSE RED BLOOD Routine 04/07/2019 CELLS IN UNITS 4:01 PM CDT LAB ONLY-URINE Routine 04/07/2019 Results for MICROSCOPIC REFLEX 2:56 PM CDT this procedure are in the results section. URINE DIP, REFLEX TO Routine 04/07/2019 Results for MICROSCOPIC, REFLEX 2:56 PM CDT this procedure TO CULTURE are in the results section. CULTURE BACTERIAL, Routine 04/07/2019 Results for URINE 2:56 PM CDT this procedure are in the results section. OSMOLALITY, URINE Routine 04/07/2019 Results for 2:56 PM CDT this procedure are in the results section. SODIUM, URINE Routine 04/07/2019 Results for 2:56 PM CDT this procedure are in the results section. CT HEAD WITHOUT Routine 04/07/2019 Results for CONTRAST 11:38 AM CDT this procedure are in the results section. TSH REFLEX Routine 04/07/2019 Results for 11:13 AM CDT this procedure are in the results section. HEMOGLOBIN Timed Routine 04/07/2019 Results for 11:13 AM CDT this procedure are in the results section. FOLATE, SERUM Routine 04/07/2019 Results for 11:13 AM CDT this procedure are in the results section. VITAMIN B12 Routine 04/07/2019 Results for 11:13 AM CDT this procedure are in the results section. BASIC METABOLIC Routine 04/07/2019 Results for PANEL 8:09 AM CDT this procedure are in the results section. ECHO ADULT COMPLETE Routine 04/07/2019 Results for 8:00 AM CDT this procedure are in the results section. HEMOGLOBIN Timed Routine 04/07/2019 Results for 5:47 AM CDT this procedure are in the results section. PREPARE AND HOLD RED Routine 04/07/2019 Results for BLOOD CELLS IN UNITS 2:00 AM CDT this procedure - BLOOD BANK are in the results section. XRAY PELVIS WITH HIP JO 04/07/2019 Results for 2 VIEWS LT 1:53 AM CDT this procedure are in the results section. XRAY CHEST 1 VIEW JO 04/07/2019 Results for 1:53 AM CDT this procedure are in the results section. LAB ONLY-COMPLETE STAT 04/07/2019 Results for BLOOD COUNT WITH 1:32 AM CDT this procedure DIFFERENTIAL are in the results section. TYPE AND SCREEN STAT 04/07/2019 Results for 1:32 AM CDT this procedure are in the results section. PROTIME/INR STAT 04/07/2019 Results for 1:32 AM CDT this procedure are in the results section. BASIC METABOLIC STAT 04/07/2019 Results for PANEL 1:32 AM CDT this procedure are in the results section. LAB ONLY-COMPLETE STAT 04/07/2019 Results for BLOOD COUNT WITH 1:32 AM CDT this procedure DIFFERENTIAL are in the results section. EKG Routine 04/07/2019 Results for 1:24 AM CDT this procedure are in the results section. documented in this encounter Results LAB ONLY-COMPLETE BLOOD COUNT WITH DIFFERENTIAL (04/11/2019 7:01 AM CDT) WBC 3.8 (L) 4.0 - 11.0 K/uL [address] RBC 2.56 (L) 3.80 - 5.[address] M/uL Hemoglobin 7.9 (L) 11.5 - 15.[address] g/dL Hematocrit 24.1 (L) 35.0 - 45.0 % [address] MCV 94.1 80.0 - 98.[address] MCH 30.9 25.5 - 34.[address] MCHC 32.8 31.5 - 36.[address] g/dL RDW-CV 16.5 (H) 11.5 - 15.5 % [address] RDW-SD 55.6 (H) 35.5 - 50.[address] Platelet Count 176 140 - 400 K/uL [address] MPV 10.5 8.5 - 12.[address] Seg Neut Absolute 2.8 1.8 - 8.0 K/uL [address] Lymphocytes Absolute 0.7 (L) 0.8 - 4.1 K/uL [address] Monocytes Absolute 0.2 0.0 - 1.0 K/uL [address] Eosinophils Absolute 0.1 0.0 - 0.7 K/uL [address] Basophil Absolute 0.0 0.0 - 0.2 K/uL [address] Immature Granulocyte 0.03 0.00 - 0.[address] Absolute K/uL Neutrophils Abs. 2,800 /uL [address] (Segs and Bands) Neutrophils Percent 74.0 % [address] Lymphocytes Percent 17.8 % [address] Monocytes Percent 6.3 % [address] Immature Granulocyte 0.8 % [address] Percent Eosinophils Percent 1.6 % [address] Basophil Percent 0.3 % [address] Nucleated RBC 1 /[address] Specimen Blood Performing Organization Address City/State/Zipcode Phone Number [address] [place] [facility] [place] [address] PROTIME/INR (04/11/2019 7:01 AM CDT) Protime 28.3 (H) 12.0 - 14.[address] INR 2.7 2.0 - 3.[address] Specimen Blood Narrative Performed At Normal INR reference range (patients not on oral [address] anticoagulants)0.9-1.1. INR Standard Intensity=(2.0 - 3.0) INR Higher Intensity=(2.5 - 3.5) Performing Organization Address [facility] Phone Number [address] [place] [id number] BASIC METABOLIC PANEL (04/11/2019 7:01 AM CDT) Glucose 86 70 - 100 mg/dL [address] BUN 27 (H) 6 - 22 mg/dL [address] Creatinine 0.84 0.60 - 1.[address] mg/dL BUN/Creatinine Ratio 32.1 (H) 10.0 - 25.[address] Sodium 132 (L) 135 - 145 meq/L [address] Potassium 3.7 3.5 - 5.3 meq/L [address] Chloride 101 99 - 110 meq/L [address] CO2 22 20 - 29 meq/L [address] Anion Gap with K 13 6 - 20 meq/L [address] Calcium 8.1 (L) 8.5 - 10.[address] mg/dL Age [address] eGFR Non- 66 >=[address] Portuguese mL/min/1.73m2 eGFR 80 >=[address] mL/min/1.73m2 Specimen Blood Performing Organization Address [facility] Phone Number [address] [address] HEMOGLOBIN (04/10/2019 11:18 AM CDT) Hemoglobin 8.9 (L) 11.5 - 15.8 g/dL [address] Specimen Blood Performing Organization Address [facility] Phone Number [address] [place] [address] PROTIME/INR (04/10/2019 5:42 AM CDT) Protime 25.6 (H) 12.0 - 14.[address] INR 2.4 2.0 - 3.[address] Specimen Blood Narrative Performed At Normal INR reference range (patients not on oral [address] anticoagulants)0.9-1.1. INR Standard Intensity=(2.0 - 3.0) INR Higher Intensity=(2.5 - 3.5) Performing Organization Address [facility] Phone Number [address] [place] [address], [place] [address] HEMOGLOBIN (04/10/2019 5:42 AM CDT) Hemoglobin 8.1 (L) 11.5 - 15.8 g/dL [place] [address] [facility] Specimen Blood Performing Organization Address [facility] Phone Number [place] [address] [facility] [address] [place] [address] BASIC METABOLIC PANEL (04/10/2019 5:42 AM CDT) Glucose 93 70 - 100 mg/dL [address] BUN 30 (H) 6 - 22 mg/dL [address] Creatinine 1.02 0.60 - 1.[address] mg/dL BUN/Creatinine Ratio 29.4 (H) 10.0 - 25.[address] Sodium 132 (L) 135 - 145 meq/L [address] Potassium 3.4 (L) 3.5 - 5.3 meq/L [address] Chloride 101 99 - 110 meq/L [address] CO2 22 20 - 29 meq/L [address] Anion Gap with K 12 6 - 20 meq/L [address] Calcium 7.9 (L) 8.5 - 10.[address] mg/dL Age [address] eGFR Non- 53 (L) >=[address] Portuguese mL/min/1.73m2 eGFR 64 >=[address] mL/min/1.73m2 Specimen Blood Performing Organization Address [facility] Phone Number [place] [address] [facility] [address] [place] [address] HEMOGLOBIN (04/09/2019 11:18 PM CDT) Hemoglobin 8.1 (L) 11.5 - 15.8 g/dL [facility] Specimen Blood Performing Organization Address [facility] Phone Number [place] [address] [facility] [address] [place] [address] HEMOGLOBIN (04/09/2019 5:47 PM CDT) Hemoglobin 8.2 (L) 11.5 - 15.8 g/dL [address] Specimen Blood Performing Organization Address [facility] Phone Number [place] [address] [facility] [address] [place] [address] HEMOGLOBIN (04/09/2019 12:04 PM CDT) Hemoglobin 9.1 (L) 11.5 - 15.8 g/dL [address] Specimen Blood Performing Organization Address [facility] Phone Number [place] [address] [facility] [address] [place] [address] BASIC METABOLIC PANEL (04/09/2019 7:53 AM CDT) Glucose 82 70 - 100 mg/dL [address] BUN 31 (H) 6 - 22 mg/dL [address] Creatinine 1.25 (H) 0.60 - 1.[address] mg/dL BUN/Creatinine Ratio 24.8 10.0 - 25.[address] Sodium 132 (L) 135 - 145 meq/L [address] Potassium 3.5 3.5 - 5.3 meq/L [address] Chloride 100 99 - 110 meq/L [address] CO2 22 20 - 29 meq/L [address] Anion Gap with K 14 6 - 20 meq/L [address] Calcium 7.6 (L) 8.5 - 10.[address] mg/dL Age [address] eGFR Non- 42 (L) >=[address] Portuguese mL/min/1.73m2 eGFR 50 (L) >=[address] mL/min/1.73m2 Specimen Blood Narrative Performed At For patients with a GFR <45 a referral to Nephrology is [address] recommended. Performing Organization Address [facility] Phone Number [address] [place] [address] PROTIME/INR (04/09/2019 6:35 AM CDT) Protime 22.3 (H) 12.0 - 14.[address] INR 2.0 2.0 - 3.[address] Specimen Blood Narrative Performed At Normal INR reference range (patients not on oral [address] anticoagulants)0.9-1.1. INR Standard Intensity=(2.0 - 3.0) INR Higher Intensity=(2.5 - 3.5) Performing Organization Address [facility] Phone Number [address] [place] [address], [place] [address] HEMOGLOBIN (04/09/2019 6:35 AM CDT) Hemoglobin 8.4 (L) 11.5 - 15.8 g/dL [address] Specimen Blood Performing Organization Address [facility] Phone Number [address] [place] [address], [place] [address] HEMOGLOBIN (04/08/2019 11:13 PM CDT) Hemoglobin 8.3 (L) 11.5 - 15.8 g/dL [address] Specimen Blood Performing Organization Address [facility] Phone Number [address] [place] [address], [place] [address] HEMOGLOBIN (04/08/2019 6:21 PM CDT) Hemoglobin 8.6 (L) 11.5 - 15.8 g/dL [address] Specimen Blood Performing Organization Address [facility] Phone Number [address] [place] [address], [place] [address] HEMOGLOBIN (04/08/2019 11:32 AM CDT) Hemoglobin 8.9 (L) 11.5 - 15.8 g/dL [place] [address] [facility] Specimen Blood Performing Organization Address [facility] Phone Number [address] [place] [address], [place] [address] BASIC METABOLIC PANEL WITH GFR (04/08/2019 8:14 AM CDT) Glucose 85 70 - 100 mg/dL [address] BUN 30 (H) 6 - 22 mg/dL [address] Creatinine 1.47 (H) 0.60 - 1.[address] mg/dL BUN/Creatinine Ratio 20.4 10.0 - 25.[address] Sodium 131 (L) 135 - 145 meq/L [address] Potassium 3.9 3.5 - 5.3 meq/L [address] Chloride 99 99 - 110 meq/L [address] CO2 19 (L) 20 - 29 meq/L [address] Anion Gap with K 17 6 - 20 meq/L [address] Calcium 7.6 (L) 8.5 - 10.[address] mg/dL Age [address] eGFR Non- 34 (L) >=[address] Portuguese mL/min/1.73m2 eGFR 42 (L) >=[address] mL/min/1.73m2 Specimen Blood Narrative Performed At For patients with a GFR <45 a referral to Nephrology is [address] recommended. Performing Organization Address [facility] Phone Number [address] [place] [address] PROTIME/INR (04/08/2019 7:43 AM CDT) Protime 18.9 (H) 12.0 - 14.[address] INR 1.6 (L) 2.0 - 3.[address] Specimen Blood Narrative Performed At Normal INR reference range (patients not on oral [address] anticoagulants)0.9-1.1. INR Standard Intensity=(2.0 - 3.0) INR Higher Intensity=(2.5 - 3.5) Performing Organization Address [facility] Phone Number [address] [place] [address] LAB ONLY-COMPLETE BLOOD COUNT WITH DIFFERENTIAL (04/08/2019 4:53 AM CDT) WBC 7.6 4.0 - 11.0 K/uL [address] RBC 2.82 (L) 3.80 - 5.[address] M/uL Hemoglobin 8.9 (L) 11.5 - 15.[address] g/dL Hematocrit 25.3 (L) 35.0 - 45.0 % [address] MCV 89.7 80.0 - 98.[address] MCH 31.6 25.5 - 34.[address] MCHC 35.2 31.5 - 36.[address] g/dL RDW-CV 16.2 (H) 11.5 - 15.5 % [address] RDW-SD 53.5 (H) 35.5 - 50.[address] Platelet Count 134 (L) 140 - 400 K/uL [address] MPV 12.7 (H) 8.5 - 12.[address] Seg Neut Absolute 6.5 1.8 - 8.0 K/uL [address] Lymphocytes Absolute 0.7 (L) 0.8 - 4.1 K/uL [address] Monocytes Absolute 0.4 0.0 - 1.0 K/uL [address] Eosinophils Absolute 0.0 0.0 - 0.7 K/uL [address] Basophil Absolute 0.0 0.0 - 0.2 K/uL [address] Immature Granulocyte 0.11 (H) 0.00 - 0.[address] Absolute K/uL Neutrophils Abs. 6,500 /uL [address] (Segs and Bands) Neutrophils Percent 84.6 % [address] Lymphocytes Percent 9.3 % [address] Monocytes Percent 5.4 % [address] Immature Granulocyte 1.4 % [address] Percent Eosinophils Percent 0.4 % [address] Basophil Percent 0.3 % [address] Nucleated RBC 0 /[address] Specimen Blood Performing Organization Address City/State/Zipcode Phone Number [address] [place] [address] HEMOGLOBIN (04/08/2019 4:53 AM CDT) Hemoglobin 8.9 (L) 11.5 - 15.8 g/dL [address] Specimen Blood Performing Organization Address [facility] Phone Number [address] [place] [address], [place] [address] HEMOGLOBIN (04/07/2019 11:52 PM CDT) Hemoglobin 9.6 (L) 11.5 - 15.8 g/dL [address] Specimen Blood Performing Organization Address [facility] Phone Number [address] [place] [address], [place] [address] XRAY C-ARM (04/07/2019 7:46 PM CDT) Specimen Narrative Performed At [facility] Patient Name: MARVEL MALHOTRA Date of :1940 Procedure: XRAY C-ARM Date of Service: 04/07/2019 EXAM: XRAY C-ARM INDICATION: Closed intertrochanteric fracture of left hip[S72.142A] FINDINGS: Intraoperative fluoroscopy was utilized to assist the ordering physician. Finalized by: Juan José Desai MD on 04/07/2019 9:14 PM CDT Patient/Procedure Information: [facility] MRN/JANY: [id number] Order Number: [id number] Accession Number: [id number] Ordering Provider: NILO AUGUSTIN Authorizing Provider: NILO AUGUSTIN Procedure Note Interface, Radiantres - 04/07/2019 9:17 PM CDT Patient Name: MARVEL MALHOTRA Date of : 1940 Procedure: XRAY C-ARM Date of Service: 04/07/2019 EXAM: XRAY C-ARM INDICATION: Closed intertrochanteric fracture of left hip [S72.142A] FINDINGS: Intraoperative fluoroscopy was utilized to assist the ordering physician. Finalized by: Juan José Desai MD on 04/07/2019 9:14 PM CDT Patient/Procedure Information: [facility] MRN/JANY: [id number] Order Number: [id number] Accession Number: [id number] Ordering Provider: NILO AUGUSTIN Authorizing Provider: NILO AUGUSTIN Performing Organization Address [facility] Phone Number [id number] PREPARE AND HOLD RED BLOOD CELLS IN UNITS - BLOOD BANK (04/07/2019 6:57 PM CDT) Pathologist [facility] BPAM Product Code [id number] LAB BPAM Unit Number [id number] LAB Unit ABO Type O LAB Unit Rh Type POS LAB XM Interp Compatible LAB BPAM Dispense Status TR LAB BPAM Blood [id number] LAB Expiration Date BPAM Coding System 5100 LAB Product Code RBC, LAB Leukoreduced/Apheresis 2nd cont. Unit ID [id number] LAB Product Status Transfused LAB Specimen Performing Organization Address [facility] Phone Number LAB GLUCOSE BY METER, POCT (04/07/2019 5:21 PM CDT) [facility] Glucose POC 79 70 - 100 mg/dL [facility] POINT OF CARE TESTING Specimen Blood Performing Organization Address [facility] Phone Number [facility] POINT OF [address] [place] [address], [place] [address] CARE TESTING HEMOGLOBIN (04/07/2019 4:50 PM CDT) [facility] Hemoglobin 7.5 (L) 11.5 - 15.8 g/dL [address] Specimen Blood Performing Organization Address [facility] Phone Number [address] [place] [address], [place] [address] PROTIME/INR (04/07/2019 4:50 PM CDT) [facility] Protime 17.4 (H) 12.0 - 14.[address] INR 1.4 (L) 2.0 - 3.[address] Specimen Blood Narrative Performed At Normal INR reference range (patients not on oral [address] anticoagulants)0.9-1.1. INR Standard Intensity=(2.0 - 3.0) INR Higher Intensity=(2.5 - 3.5) Performing Organization Address [facility] Phone Number [address] [place] [address], [place] [address] CULTURE BACTERIAL, URINE (04/07/2019 2:56 PM CDT) [facility] Culture Result >100,000 CFU/mL [facility] Escherichia coli (!) CLINIC Specimen Urine Organism Antibiotic Method Susceptibility Escherichia coli Amoxicillin/clavulanate MY <=2 ug/mL: Sensitive Escherichia coli Ampicillin MY <=2 ug/mL: Sensitive Escherichia coli Cefazolin MY <=4 ug/mL: Sensitive Escherichia coli Ceftriaxone MY <=1 ug/mL: Sensitive Escherichia coli Gentamicin MY <=1 ug/mL: Sensitive Escherichia coli Nitrofurantoin MY <=16 ug/mL: Sensitive Comment: Nitrofurantoin should not be used for pyelonephritis due to low renal concentration. Escherichia coli Tobramycin MY <=1 ug/mL: Sensitive Escherichia coli Trimethoprim/Sulfamethoxazole MY <=20 ug/mL: Sensitive Comment: Cefazolin predicts susceptibility to oral agents cephalexin, cefdinir, cefpodoxime and cefuroxime when used for therapy of uncomplicated UTIs. Performing Organization Address [facility] Phone Number [facility] [address] [place] [address] LAB ONLY-URINE MICROSCOPIC REFLEX (04/07/2019 2:56 PM CDT) WBC Urine 6-10 /hpf (A) Negative, 0-5 [place]- /hpf CLINIC RBC Urine 3-5 /hpf (A) Negative, 0-2 [place] [facility] Squamous Epithelial Many (>50) Negative, Occ [place] [address] Cells /lpf (A) (0-10) /lpf, Few CLINIC (11-20) /lpf Bacteria Many (>50) Negative [place] [address] /hpf (A) CLINIC Hyaline Cast 3-5 /lpf (A) 0-2 /lpf [address] Specimen Urine Narrative Performed At Urine Culture Reflexed [address] The presence of moderate or many squamous epithelial cells is suggestive of possible contamination during collection. Performing Organization Address [facility] Phone Number [address] [place] [address] OSMOLALITY, URINE (04/07/2019 2:56 PM CDT) Osmolality Urine 248 (L) 390-1,000 mOsm/kg [address] Specimen Urine Performing Organization Address [facility] Phone Number [address] [place] [address], [place] [address] SODIUM, URINE (04/07/2019 2:56 PM CDT) Sodium Urine 23 meq/L [address] Specimen Urine Performing Organization Address [facility] Phone Number [place] [address] [facility] [address] [place] [address] URINE DIP, REFLEX TO MICROSCOPIC, REFLEX TO CULTURE (04/07/2019 2:56 PM CDT) Color Urine Yellow Nichole, Dark [place] [address] Yellow, Straw, CLINIC Yellow, Colorless Clarity Urine Slightly Cloudy Clear [place] [address] (A) CLINIC Glucose Urine Negative Negative [address] Bilirubin Urine Negative Negative [address] Ketones Urine Negative Negative, 5 [place] [address] mg/dL, 10 mg/dL [facility] Specific [place] 1.011 1.002 - 1.[address] Blood Urine Negative Negative [address] PH Urine 5.0 5.0, 5.5, 6.0, [place] [address] 6.5, 7.0, 7.5, CLINIC 8.0 Protein Urine Negative Negative [address] Urobilinogen < 2 mg/dL < 2 mg/dL [address] Nitrite Negative Negative [address] Leukocyte Esterase Small (1+) (A) Negative [place] [address] Urine CLINIC Specimen Urine Narrative Performed At Microscopic Exam Reflexed [address] Performing Organization Address [facility] Phone Number [address] [place] [address] HEAD WITHOUT CONTRAST (04/07/2019 11:38 AM CDT) Specimen Narrative Performed At [facility] Patient Name: MARVEL MALHOTRA Date of :1940 Procedure: CT HEAD WITHOUT CONTRAST Date of Service: 04/07/2019 EXAM: CT HEAD WITHOUT CONTRAST INDICATION: Syncope/fainting TECHNIQUE: CT of the brain performed without IV contrast. COMPARISON(S): None Available FINDINGS: Greater than expected parenchymal volume loss for the patient's age. Mild chronic small vessel ischemic sequela supratentorially suspected. No acute intracranial hemorrhage or evidence of large vascular distribution ischemia. No extraaxial collection, mass effect or midline shift. Calvarium is intact without acute osseous abnormality. Polypoid thickening at the floor of the left maxillary sinus. Advanced degenerative change of the right TMJ. IMPRESSION: No acute intracranial abnormality. Finalized by: Kilo Yang DO on 04/07/2019 12:20 PM CDT Patient/Procedure Information: [facility] MRN/JANY: [id number] Order Number: [id number] Accession Number: [id number] Ordering Provider: FERNANDO OBRIEN Authorizing Provider: FERNANDO OBRIEN Procedure Note Interface, Radiantres - 04/07/2019 12:22 PM CDT Patient Name: MARVEL MALHOTRA Date of : 1940 Procedure: CT HEAD WITHOUT CONTRAST Date of Service: 04/07/2019 EXAM: CT HEAD WITHOUT CONTRAST INDICATION: Syncope/fainting TECHNIQUE: CT of the brain performed without IV contrast. COMPARISON(S): None Available FINDINGS: Greater than expected parenchymal volume loss for the patient's age. Mild chronic small vessel ischemic sequela supratentorially suspected. No acute intracranial hemorrhage or evidence of large vascular distribution ischemia. No extraaxial collection, mass effect or midline shift. Calvarium is intact without acute osseous abnormality. Polypoid thickening at the floor of the left maxillary sinus. Advanced degenerative change of the right TMJ. IMPRESSION: No acute intracranial abnormality. Finalized by: Kilo Yang DO on 04/07/2019 12:20 PM CDT Patient/Procedure Information: [facility] MRN/JANY: [id number] Order Number: [id number] Accession Number: [id number] Ordering Provider: FERNANDO OBRIEN Authorizing Provider: FERNANDO OBRIEN Performing Organization Address [facility] Phone Number [facility] TSH REFLEX (04/07/2019 11:13 AM CDT) TSH 4.18 0.40 - 5.00 uIU/mL [address] Specimen Blood Performing Organization Address [facility] Phone Number [address] [place] [address] FOLATE, SERUM (04/07/2019 11:13 AM CDT) Folate Serum 4.5 2.8 - 16.0 ng/mL [facility] Specimen Blood Performing Organization Address [facility] Phone Number [facility] [address] [place] [address] VITAMIN B12 (04/07/2019 11:13 AM CDT) Vitamin B12 578 200-1,000 pg/mL [facility] Specimen Blood Performing Organization Address [facility] Phone Number [facility] [address] [place] [address] HEMOGLOBIN (04/07/2019 11:13 AM CDT) Hemoglobin 6.7 (LL) 11.5 - 15.8 g/dL [address] Specimen Blood Performing Organization Address [facility] Phone Number [address] [place] [address] BASIC METABOLIC PANEL WITH GFR (04/07/2019 8:09 AM CDT) Glucose 122 (H) 70 - 100 mg/dL [place] [address] [facility] BUN 30 (H) 6 - 22 mg/dL [address] Creatinine 1.40 (H) 0.60 - 1.[address] mg/dL BUN/Creatinine Ratio 21.4 10.0 - 25.[address] Sodium 129 (L) 135 - 145 meq/L [address] Potassium 3.6 3.5 - 5.3 meq/L [address] Chloride 94 (L) 99 - 110 meq/L [address] CO2 26 20 - 29 meq/L [address] Anion Gap with K 13 6 - 20 meq/L [address] Calcium 8.2 (L) 8.5 - 10.5 [place] [address] [facility] mg/dL Age 79 Years [place] [address] [facility] eGFR Non- 36 (L) >=[address] Portuguese mL/min/1.73m2 eGFR 44 (L) >=[address] mL/min/1.73m2 Specimen Blood Narrative Performed At For patients with a GFR <45 a referral to Nephrology is [place] [address] CLIN[facility] recommended. Performing Organization Address [facility] Phone Number [address] [place] [address], [place] [address] ECHO ADULT COMPLETE (04/07/2019 8:00 AM CDT) Specimen Narrative Performed At [facility] Patient: MARVEL MALHOTRA MR#:[id number] Exam Date:04/07/2019 [facility] [address] Transthoracic Echocardiogram Luisa [id number] : 106/63 mmHg HR:101 bpm : 1940Exam Location: Echo LabHeight:66.00 "( 167.6 cm) Age: 79 year(s)[facility]Weight:149 lbs.( 67.59 kg) Gender:FemalePatient Status: Inpatient BSA: 1.76 m2 Special Tester:JULIO TRAVIS (AE,PE) Reading Physician:HEAVEN CERVANTES MD Ordering Physician: ARIANA BURK MD Procedure Indication(s): hx of valve repair, preop evaluation Examination: TTE Complete 2D(m-mode), Complete Spectral Doppler, Color Doppler Exam CommentsPatient was scanned supine due to broken left hip. Clinical History Date of Most Recent Valve Procedure: 03/02/2016 Prior Valve Surgery: Mitral Valve Repair-Surgical Conclusions Left Ventricle: Normal left ventricular size. Normal left ventricular systolic function. The ejection fraction is visually estimated to be 55 %. There are no left ventricular regional wall motion abnormalities. Mitral Valve: A(n) [address] Renny mitral ring is present. No prosthetic mitral valve stenosis. [id number] mitral transvalvular regurgitation. Right Ventricle: Normal right ventricular size. Normal right ventricular systolic function. Pulmonary Artery: Degree of pulmonary hypertension likely inaccurate due to wide-open tricuspid regurgitation. Tricuspid Valve: Severe tricuspid regurgitation. Comparison Study Comparison Date: 02/28/2018 Comparison Study: Transthoracic Echocardiogram Tricuspid regurgitation has worsened Findings Left Ventricle: Normal left ventricular size. Normal left ventricular wall thickness. Normal left ventricular systolic function. The ejection fraction is visually estimated to be 55 %. There are no left ventricular regional wall motion abnormalities. Unable to assess left ventricular diastolic function due to abnormal rhythm. Left Atrium: Markedly dilated left atrium. Aortic Valve: Tricuspid aortic valve with normal function. Mild aortic cuspal thickening. No significant aortic regurgitation. No aortic stenosis. Aorta: The sinus of valsalva is normal in size measuring 31.0 mm. Mitral Valve: A(n) [address] Renny mitral ring is present. No prosthetic mitral valve stenosis. [id number] mitral transvalvular regurgitation. IAS: No gross evidence of shunt flow seen; however the possibility of a PFO cannot be completely ruled out. Right Ventricle: Normal right ventricular size. Normal right ventricular systolic function. Normal right ventricular wall thickness. Pulmonary artery systolic pressure is measured at 36 mmHg. Pulmonary Artery: Degree of pulmonary hypertension likely inaccurate due to wide-open tricuspid regurgitation. Right Atrium: Markedly dilated right atrium. Tricuspid Valve: Normal tricuspid valve structure. Severe tricuspid regurgitation. Pulmonic Valve: Normal pulmonary valve structure. No significant pulmonary regurgitation. No pulmonary stenosis. IVC: Normal IVC size with normal respirophasic changes. Pericardium: No significant pericardial effusion. No pleural effusion. Measurements Left Ventricle Aortic Valve Label ValueNormal Value Label Value Normal Value LVDd, 2D40.8 mm LVOT Vmax 68 cm/s LVDs, 2D29.8 mm AV Vmax 83 cm/s IVSd, 2D7.6 mm LVOTd 19 mm LVPWd, 2D 9.2 mm LVOT VTI9.56 cm FS, 2D26.96 % LVOT PGmax2 mmHg LVEDV, 2D 73 ml AV Vmean60 cm/s LVESV, 2D 34 ml AV VTI13.1 cm Cardiac Output2.73 L/min AV PGmax3 mmHg Cardiac Index 1.55 AV PGmean 2 mmHg L/min/m-sqAVA (Vmax) 2.3 cm-sq LVEDVI, 2D41.5 ml/m2 AV Vmax, [id number] cm/s LVESVI, 2D19.3 ml/m2 NIYAH(VTI)2.1 cm-sq Stroke Index15.34 Obstruction Index 0.73 ml/m-sq (VTI) Left Atrium Obstructive Index 0.82 Label ValueNormal Value (Vmax) LADs Long.71 mm Mitral Valve LA Volume Index 64.2 ml/m-sq Label Value Normal Value LADs, MM61 mm MV E Vmax 126 cm/s LA/AO Ratio, MM 2.03 MV E/E' lateral 11 Aorta MV Dec Time 187 ms Label ValueNormal Value MV VTI17.9 cm Ao Sinus, MM30 mm MVA (VTI) 1.5 cm-sq Ao Sinus, 2D31 mm MV PGmax6 mmHg Heart Rate MV PGmean 3 mmHg Label ValueNormal Value MV PHT0.07 s Heart Yqss827 bpm MVA PHT 3.3 cm-sq MV E' lateral 11.5 cm/s Tricuspid Valve Label ValueNormal Value TR Vmax 289 cm/s TR Pmax 33 mmHg RA Pressure 3 mmHg RVSP36 mmHg Pulmonic Valve Label ValueNormal Value PV Vmax 75 cm/s PV PGmax2 mmHg Procedure Note Interface, Inc Results No Pull Forward - 04/07/2019 9:19 AM CDT Patient: MARVEL MALHOTRA MR#: [id number] Exam Date: 04/07/2019 [facility] [address] [place] [address] BP: 106/63 mmHg HR: 101 bpm : 1940 Exam Location: Echo Lab Height: 66.00 "(167.6 cm) Age: 79 year(s) Patient Room: [facility] Weight: 149 lbs.(67.59 kg) Gender: Female Patient Status: Inpatient BSA: 1.76 m2 Special Tester: JULIO TRAVIS (AE,PE) Reading Physician: HEAVEN CERVANTES MD Ordering Physician: ARIANA BURK MD Procedure Indication(s): hx of valve repair, preop evaluation Examination: TTE Complete 2D(m-mode), Complete Spectral Doppler, Color Doppler Exam Comments Patient was scanned supine due to broken left hip. Clinical History Date of Most Recent Valve Procedure: 03/02/2016 Prior Valve Surgery: Mitral Valve Repair-Surgical Conclusions Left Ventricle: Normal left ventricular size. Normal left ventricular systolic function. The ejection fraction is visually estimated to be 55 %. There are no left ventricular regional wall motion abnormalities. Mitral Valve: A(n) [address] Renny mitral ring is present. No prosthetic mitral valve stenosis. Uvwb-nt-hgcgooaf mitral transvalvular regurgitation. Right Ventricle: Normal right ventricular size. Normal right ventricular systolic function. Pulmonary Artery: Degree of pulmonary hypertension likely inaccurate due to wide-open tricuspid regurgitation. Tricuspid Valve: Severe tricuspid regurgitation. Comparison Study Comparison Date: 02/28/2018 Comparison Study: Transthoracic Echocardiogram Tricuspid regurgitation has worsened Findings Left Ventricle: Normal left ventricular size. Normal left ventricular wall thickness. Normal left ventricular systolic function. The ejection fraction is visually estimated to be 55 %. There are no left ventricular regional wall motion abnormalities. Unable to assess left ventricular diastolic function due to abnormal rhythm. Left Atrium: Markedly dilated left atrium. Aortic Valve: Tricuspid aortic valve with normal function. Mild aortic cuspal thickening. No significant aortic regurgitation. No aortic stenosis. Aorta: The sinus of valsalva is normal in size measuring 31.0 mm. Mitral Valve: A(n) [address] Renny mitral ring is present. No prosthetic mitral valve stenosis. Odoj-gz-hudnkims mitral transvalvular regurgitation. IAS: No gross evidence of shunt flow seen; however the possibility of a PFO cannot be completely ruled out. Right Ventricle: Normal right ventricular size. Normal right ventricular systolic function. Normal right ventricular wall thickness. Pulmonary artery systolic pressure is measured at 36 mmHg. Pulmonary Artery: Degree of pulmonary hypertension likely inaccurate due to wide-open tricuspid regurgitation. Right Atrium: Markedly dilated right atrium. Tricuspid Valve: Normal tricuspid valve structure. Severe tricuspid regurgitation. Pulmonic Valve: Normal pulmonary valve structure. No significant pulmonary regurgitation. No pulmonary stenosis. IVC: Normal IVC size with normal respirophasic changes. Pericardium: No significant pericardial effusion. No pleural effusion. Measurements Left Ventricle Aortic Valve Label Value Normal Value Label Value Normal Value LVDd, 2D 40.8 mm LVOT Vmax 68 cm/s LVDs, 2D 29.8 mm AV Vmax 83 cm/s IVSd, 2D 7.6 mm LVOTd 19 mm LVPWd, 2D 9.2 mm LVOT VTI 9.56 cm FS, 2D 26.96 % LVOT PGmax 2 mmHg LVEDV, 2D 73 ml AV Vmean 60 cm/s LVESV, 2D 34 ml AV VTI 13.1 cm Cardiac Output 2.73 L/min AV PGmax 3 mmHg Cardiac Index 1.55 AV PGmean 2 mmHg L/min/m-sq NIYAH (Vmax) 2.3 cm-sq LVEDVI, 2D 41.5 ml/m2 AV Vmax, Caliper 83 cm/s LVESVI, 2D 19.3 ml/m2 NIYAH (VTI) 2.1 cm-sq Stroke Index 15.34 Obstruction Index 0.73 ml/m-sq (VTI) Left Atrium Obstructive Index 0.82 Label Value Normal Value (Vmax) LADs Long. 71 mm Mitral Valve LA Volume Index 64.2 ml/m-sq Label Value Normal Value LADs, MM 61 mm MV E Vmax 126 cm/s LA/AO Ratio, MM 2.03 MV E/E' lateral 11 Aorta MV Dec Time 187 ms Label Value Normal Value MV VTI 17.9 cm Ao Sinus, MM 30 mm MVA (VTI) 1.5 cm-sq Ao Sinus, 2D 31 mm MV PGmax 6 mmHg Heart Rate MV PGmean 3 mmHg Label Value Normal Value MV PHT 0.07 s Heart Rate 101 bpm MVA PHT 3.3 cm-sq MV E' lateral 11.5 cm/s Tricuspid Valve Label Value Normal Value TR Vmax 289 cm/s TR Pmax 33 mmHg RA Pressure 3 mmHg RVSP 36 mmHg Pulmonic Valve Label Value Normal Value PV Vmax 75 cm/s PV PGmax 2 mmHg Performing Organization Address [facility] Phone Number [facility] [place] HEMOGLOBIN (04/07/2019 5:47 AM CDT) Hemoglobin 7.6 (L) 11.5 - 15.8 g/dL [place] [id number] [facility] Specimen Blood Performing Organization Address [facility] Phone Number [address] [place] [address] PREPARE AND HOLD RED BLOOD CELLS IN UNITS - BLOOD BANK, 2 Units (04/07/2019 2: 00 AM CDT) BPAM Product Code [id number] LAB BPAM Unit Number [id number] LAB Unit ABO Type O LAB Unit Rh Type POS LAB XM Interp Compatible LAB BPAM Dispense Status TR LAB BPAM Blood [id number] LAB Expiration Date BPAM Coding System 5100 LAB Product Code RBC, LAB Leukoreduced/Apheresis 1st cont. Unit ID [id number] LAB Product Status Transfused LAB Specimen Blood Performing Organization Address [facility] Phone Number LAB XRAY PELVIS WITH HIP 2 VIEWS LT (04/07/2019 1:53 AM CDT) Specimen Narrative Performed At [facility] Patient Name: MARVEL MALHOTRA Date of :1940 Procedure: XRAY PELVIS WITH HIP 2 VIEWS LT Date of Service: 04/07/2019 EXAM: XRAY PELVIS WITH HIP 2 VIEWS LT INDICATION:Fall, unable to bear weight on the left hip COMPARISON: None. FINDINGS/IMPRESSION: Comminuted and displaced left intertrochanteric fracture with superior translation of the femoral shaft and varus angulation of the femoral head. Orthopedic follow-up recommended. 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 Demineralization. Finalized by: Adolfo Harman MD on 04/07/2019 2:34 AM CDT Patient/Procedure Information: [facility] MRN/JANY: [id number] Order Number: [id number] Accession Number: [id number] Ordering Provider: ANDREW VILLALTA Authorizing Provider: ANDREW VILLALTA Procedure Note Interface, [facility] - 04/07/2019 2:36 AM CDT Patient Name: MARVEL MALHOTRA Date of : 1940 Procedure: XRAY PELVIS WITH HIP 2 VIEWS LT Date of Service: 04/07/2019 EXAM: XRAY PELVIS WITH HIP 2 VIEWS LT INDICATION:Fall, unable to bear weight on the left hip COMPARISON: None. FINDINGS/IMPRESSION: Comminuted and displaced left intertrochanteric fracture with superior translation of the femoral shaft and varus angulation of the femoral head. Orthopedic follow-up recommended. 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 Demineralization. Finalized by: Adolfo Harman MD on 04/07/2019 2:34 AM CDT Patient/Procedure Information: [facility] MRN/JANY: [id number] Order Number: [id number] Accession Number: [id number] Ordering Provider: ANDREW VILLALTA Authorizing Provider: ANDREW VILLALTA Performing Organization Address City/State/Zipcode Phone Number [id number] XRAY CHEST 1V - (04/07/2019 1:53 AM CDT) Specimen Narrative Performed At [facility] Patient Name: MARVEL MALHOTRA Date of :1940 Procedure: XRAY CHEST 1 VIEW Date of Service: 04/07/2019 EXAM: XRAY CHEST 1 VIEW INDICATION:SOB COMPARISON: Multiple prior chest radiographs including 04/09/2016. CT chest dated 01/14/2016. FINDINGS: SUPPORT DEVICES AND SURGICAL MATERIAL: Median sternotomy. Prosthetic cardiac valvular augmentation. CARDIAC/MEDIASTINAL CONTOURS: Cardiac silhouette significantly enlarged. Atheromatous plaques in the aorta. PLEURA/LUNGS: Hyperinflation and flattened hemidiaphragms with trace effusions. No infiltrate or pneumothorax. ADDITIONAL FINDINGS: Demineralization. Degenerative changes in the axial/appendicular skeleton. Hiatal hernia. IMPRESSION: Cardiomegaly and trace effusions without infiltrate. Finalized by: Adolfo Harman MD on 04/07/2019 2:32 AM CDT Patient/Procedure Information: [facility] MRN/JANY: [id number] Order Number: [id number] Accession Number: [id number] Ordering Provider: ANDREW VILLALTA Authorizing Provider: ANDREW VILLALTA Procedure Note Interface, [facility] - 04/07/2019 2:35 AM CDT Patient Name: MARVEL MALHOTRA Date of : 1940 Procedure: XRAY CHEST 1 VIEW Date of Service: 04/07/2019 EXAM: XRAY CHEST 1 VIEW INDICATION:SOB COMPARISON: Multiple prior chest radiographs including 04/09/2016. CT chest dated 01/14/2016. FINDINGS: SUPPORT DEVICES AND SURGICAL MATERIAL: Median sternotomy. Prosthetic cardiac valvular augmentation. CARDIAC/MEDIASTINAL CONTOURS: Cardiac silhouette significantly enlarged. Atheromatous plaques in the aorta. PLEURA/LUNGS: Hyperinflation and flattened hemidiaphragms with trace effusions. No infiltrate or pneumothorax. ADDITIONAL FINDINGS: Demineralization. Degenerative changes in the axial/ appendicular skeleton. Hiatal hernia. IMPRESSION: Cardiomegaly and trace effusions without infiltrate. Finalized by: Adolfo Harman MD on 04/07/2019 2:32 AM CDT Patient/Procedure Information: [facility] MRN/JANY: [id number] Order Number: [id number] Accession Number: [id number] Ordering Provider: ANDREW VILLALTA Authorizing Provider: ANDREW VILLALTA Performing Organization Address City/State/Zipcode Phone Number [id number] LAB ONLY-COMPLETE BLOOD COUNT WITH DIFFERENTIAL (04/07/2019 1:32 AM CDT) WBC 7.9 4.0 - 11.0 K/uL [address] RBC 2.40 (L) 3.80 - 5.[address] M/uL Hemoglobin 7.8 (L) 11.5 - 15.[address] g/dL Hematocrit 23.0 (L) 35.0 - 45.0 % [address] MCV 95.8 80.0 - 98.[address] MCH 32.5 25.5 - 34.[address] MCHC 33.9 31.5 - 36.[address] g/dL RDW-CV 13.5 11.5 - 15.5 % [address] RDW-SD 47.7 35.5 - 50.[address] Platelet Count 214 140 - 400 K/uL [address] MPV 11.0 8.5 - 12.[address] Seg Neut Absolute 6.9 1.8 - 8.0 K/uL [address] Lymphocytes Absolute 0.6 (L) 0.8 - 4.1 K/uL [address] Monocytes Absolute 0.3 0.0 - 1.0 K/uL [address] Eosinophils Absolute 0.1 0.0 - 0.7 K/uL [address] Basophil Absolute 0.0 0.0 - 0.2 K/uL [address] Immature Granulocyte 0.07 (H) 0.00 - 0.[address] Absolute K/uL Neutrophils Abs. 6,900 /uL [address] (Segs and Bands) Neutrophils Percent 87.5 % [address] Lymphocytes Percent 7.8 % [address] Monocytes Percent 3.4 % [address] Immature Granulocyte 0.9 % [address] Percent Eosinophils Percent 0.9 % [address] Basophil Percent 0.4 % [address] Nucleated RBC 0 /[address] Specimen Blood Performing Organization Address City/State/Zipcode Phone Number [address] [place] [id number] BASIC METABOLIC PANEL (04/07/2019 1:32 AM CDT) Glucose 113 (H) 70 - 100 mg/dL [address] BUN 29 (H) 6 - 22 mg/dL [address] Creatinine 1.41 (H) 0.60 - 1.[address] mg/dL BUN/Creatinine Ratio 20.6 10.0 - 25.[address] Sodium 130 (L) 135 - 145 meq/L [address] Potassium 2.7 (L) 3.5 - 5.3 meq/L [address] Chloride 94 (L) 99 - 110 meq/L [address] CO2 24 20 - 29 meq/L [address] Anion Gap with K 15 6 - 20 meq/L [address] Calcium 8.4 (L) 8.5 - 10.[address] mg/dL Age [address] eGFR Non- 36 (L) >=[address] Portuguese mL/min/1.73m2 eGFR 44 (L) >=[address] mL/min/1.73m2 Specimen Blood Narrative Performed At For patients with a GFR <45 a referral to Nephrology is [address] recommended. Performing Organization Address [facility] Phone Number [address] [place] [phone] PROTIME/INR (04/07/2019 1:32 AM CDT) Protime 15.8 (H) 12.0 - 14.[address] INR 1.3 (L) 2.0 - 3.[address] Specimen Blood Narrative Performed At Normal INR reference range (patients not on oral [address] anticoagulants)0.9-1.1. INR Standard Intensity=(2.0 - 3.0) INR Higher Intensity=(2.5 - 3.5) Performing Organization Address [facility] Phone Number [address] [place] [phone] TYPE AND SCREEN (04/07/2019 1:32 AM CDT) ABO Type O [address] BLOOD BANK Rh Type Positive [address] BLOOD BANK Antibody Screen Negative [address] Comment: BLOOD BANK Allogenic Red Cells Available 04-07-2019 Expiration Date 04/10/2019 23:[address] BLOOD BANK Specimen Blood Performing Organization Address [facility] Phone Number [address] BLOOD BANK [address] [place] [facility] [place] [address] EKG (04/07/2019 1:24 AM CDT) EKG WAVEFORM TRACEYESENIASTKEVIN DINEROB Atrial fibrillation with rapid ventricular response with premature ventricular or aberrantly conducted complexes Left axis deviation Low voltage QRS, consider pulmonary disease, pericardial effusion, or normal variant Cannot rule out Anterior infarct , age undetermined ST & T wave abnormality, consider inferolateral ischemia Abnormal ECG Ventricular Rate: 105 BPM Atrial Rate: 105 BPM QRS Duration: 92 ms Q-T Interval: 360 ms QTc Calculation(Bazett): 475 ms Calculated R [place]: -71 degrees Calculated T [place]: -153 degrees Specimen Narrative Performed At Performing Organization Address [facility] Phone Number [employer] documented in this encounter Visit Diagnoses Diagnosis Closed displaced intertrochanteric fracture of left femur (HCC) - Primary Closed fracture of intertrochanteric section of femur Fall from ground level Closed left hip fracture, initial encounter (HCC) Chronic anticoagulation Encounter for long-term (current) use of anticoagulants Atrial fibrillation, persistent Atrial fibrillation Contusion of left elbow, initial encounter Acute gout of left hand, unspecified cause Chronic systolic congestive heart failure (HCC) Chronic systolic heart failure Hypokalemia Hypopotassemia S/P MVR (mitral valve replacement) Heart valve replaced by other means Hyperlipidemia, unspecified hyperlipidemia type Moderate episode of recurrent major depressive disorder (HCC) Acute cystitis without hematuria Acute cystitis Chronic atrial fibrillation Atrial fibrillation Anemia, unspecified type S/P MVR (mitral valve repair) Other postprocedural status [facility] current use of anticoagulant therapy documented in this encounter Discharge Diagnoses Not on filedocumented in this encounter Administered Medications Medication Order MAR Action Action Date Dose Rate Site .Anticoagulation (WARFARIN) therapy nursing reminder Anti-coag reminder, First dose on Wed04/07/19 at 1400, Until Discontinued acetaminophen (TYLENOL) tablet 650 mg Given 04/11/2019 6:44 AM CDT 650 mg 650 mg, Oral, Every six hours, First dose on Wed04/10/19 at 1200, Until Discontinued, Total dose of acetaminophen from all acetaminophen containing products should not exceed 4 grams (4000 mg) per day., Given 04/11/2019 12:11 AM CDT 650 mg Given 04/10/2019 2:59 PM CDT 650 mg cefuroxime (CEFTIN) tablet 250 mg Given 04/11/2019 8:14 AM CDT 250 mg 250 mg, Oral, Two times a day, 10 doses, First dose on Wed04/10/19 at 0900, Last dose on Wed04/14/19 at 2100, Tablet should not be crushed or chewed., Given 04/10/2019 8:12 PM CDT 250 mg Given 04/10/2019 9:23 AM CDT 250 mg furosemide (LASIX) tablet 40 mg Given 04/11/2019 8:11 AM CDT 40 mg 40 mg, Oral, Two times a day diuretic, First dose on Wed04/10/19 at 1600, Until Discontinued Given 04/10/2019 4:47 PM CDT 40 mg HYDROcodone-acetaminophen (NORCO) 5-325 mg Given 04/10/2019 4:48 PM CDT 1 tablet tablet 1 tablet 1 tablet, Oral, Every four hours prn, Starting Wed04/10/19 at 1500, Until Discontinued, moderate pain, severe pain, Total dose of acetaminophen from all acetaminophen containing products should not exceed 4 grams (4000 mg) per day., lovastatin (MEVACOR) tablet 40 mg Given 04/11/2019 8:14 AM CDT 40 mg 40 mg, Oral, DAILY, First dose on Wed04/07/19 at 0900, Until Discontinued Given 04/10/2019 9:23 AM CDT 40 mg Given 04/09/2019 9:48 AM CDT 40 mg metoprolol succinate (TOPROL XL) SR tablet Given 04/11/2019 8:11 AM CDT 25 mg (24 hr) 25 mg 25 mg, Oral, Daily, First dose on Wed04/10/19 at 0905, Until Discontinued, Tablet may be broken in half, but should not be crushed or chewed. Hold for SBP less than 100; Hold for heart rate less than 60, Given 04/10/2019 9:26 AM CDT 25 mg polyethylene glycol (MIRALAX) packet 1 Given 04/09/2019 9:48 AM CDT 1 packet packet 1 packet, Oral, Daily, First dose on Wed04/08/19 at 0900, Until Discontinued, Post - Op, Hold if 2 loose stools occur in the last 24 hours., Given 04/08/2019 9:10 AM CDT 1 packet senna-docusate sodium Given 04/09/2019 9:31 PM CDT 1 tablet (SENOKOT-S;PERICOLACE) tablet 1 tablet 1 tablet, Oral, Two times a day, First dose on Wed04/07/19 at 2100, Until Discontinued, Post - Op, Hold if 2 loose stools occur in the last 24 hours., Given 04/09/2019 9:48 AM CDT 1 tablet Given 04/08/2019 7:45 PM CDT 1 tablet sertraline (ZOLOFT) tablet 50 mg Given 04/11/2019 8:11 AM CDT 50 mg 50 mg, Oral, DAILY, First dose on Wed04/07/19 at 0900, Until Discontinued Given 04/10/2019 9:23 AM CDT 50 mg Given 04/09/2019 9:48 AM CDT 50 mg sodium chloride 0.9% flush (adult) 10 mL Given 04/11/2019 8:14 AM CDT 10 mL 10 mL, IV, Two times a day and prn, First dose on Wed04/07/19 at 0900, Until Discontinued, 10 mL, Flush IV line as scheduled and as often as necessary before and after meds., Given 04/10/2019 8:12 PM CDT 10 mL Given 04/10/2019 9:23 AM CDT 10 mL Medication Order MAR Action Action Date Dose Rate Site acetaminophen (TYLENOL) tablet Given 04/10/2019 7:16 AM CDT 1,000 mg 1,000 mg 1,000 mg, Oral, Every six hours, First dose on Wed04/07/19 at 0600, Until Discontinued, Total dose of acetaminophen from all acetaminophen containing products should not exceed 4 grams (4000 mg) per day., Given 04/10/2019 2:59 AM CDT 1,000 mg Given 04/09/2019 2:00 PM CDT 1,000 mg acetaminophen (TYLENOL) tablet 650 mg Given 04/09/2019 9:32 PM CDT 650 mg 650 mg, Oral, Every four hours prn, Starting Wed04/07/19 at 1952, Until Wed04/10/19 at 1501, mild pain, fever, PACU - Continue Post-Op, for pain Scale 3 or less, ceFAZolin (ANCEF) 2000 mg/20 mL sterile Given 04/08/2019 11:56 AM CDT 2,000 mg water IV syringe 2,000 mg, IV, Every eight hours, 2 doses, First dose on 04/08/19 at 0300, Last dose on 04/08/19 at 1100, 20 mL, PACU - Continue Post-Op, Administer as IV push over 4 minutes., Given 04/08/2019 4:00 AM CDT 2,000 mg cefTRIAXone (ROCEPHIN) 1000 mg/10 mL IV Given 04/09/2019 2:00 PM CDT 1,000 mg syringe in sterile water 1,000 mg, IV, Every twenty four hours, First dose on Wed04/09/19 at 1120, Until Discontinued, 10 mL, Flush IV line with normal saline prior and post administration. Do not administer with calcium containing solutions (example: Lactated Ringer's, TPN with calcium, etc) as these are not compatible with ceftriaxone. Administer over 5 minutes., diphenhydrAMINE (BENADRYL) injection solution Given 04/07/2019 1:18 AM CDT 25 mg 25 mg 25 mg, IV, Now, 1 dose, Wed04/07/19 at 0110, 1 mL, If preference is to further dilute for IV administration: First draw up patient-specific dose, then dilute to 10 mL with 0.9% sodium chloride., haloperidol lactate (HALDOL) injection Given 04/07/2019 1:19 AM CDT 0.5 mg solution 0.5 mg 0.5 mg, IV, Now, 1 dose, Wed04/07/19 at 0110, 1 mL, Do not further dilute with 0.9% sodium chloride. If preference is to further dilute for IV administration: first draw up patient-specific dose, then dilute to 10ml with dextrose 5% water. Ok to flush with 0.9% Sodium Chloride., HYDROmorphone (DILAUDID) injection solution Given 04/07/2019 3:17 AM CDT 0.5 mg (conc: 0.5 mg/0.5mL) 0.5 mg 0.5 mg, IV, Every thirty minutes prn, Starting Wed04/07/19 at 0106, Until Wed04/07/19 at 0336, breakthrough pain, 0.5 mL HYDROmorphone (DILAUDID) injection solution Given 04/07/2019 1:23 AM CDT 0.5 mg (conc: 0.5 mg/0.5mL) 0.5 mg 0.5 mg, IV, Now, 1 dose, Wed04/07/19 at 0110, 0.5 mL metoprolol tartrate (LOPRESSOR) half-tablet Given 04/09/2019 9:32 PM CDT 12.5 mg 12.5 mg 12.5 mg, Oral, Two times a day, First dose on Wed04/08/19 at 2100, Until Discontinued, Hold for SBP less than 100; Hold for heart rate less than 60, Given 04/09/2019 9:48 AM CDT 12.5 mg Given 04/08/2019 7:48 PM CDT 12.5 mg metoprolol tartrate (LOPRESSOR) tablet 50 mg Given 04/07/2019 10:33 AM CDT 50 mg 50 mg, Oral, Two times a day, First dose on Wed04/07/19 at 1030, Until Discontinued oxyCODONE (OXY-IR) tablet 10 mg Given 04/07/2019 9:33 AM CDT 10 mg 10 mg, Oral, Every four hours prn, Starting Wed04/07/19 at 0404, Until Wed04/07/19 at 2119, severe pain oxyCODONE (OXY-IR) tablet 10 mg Given 04/09/2019 9:47 AM CDT 10 mg 10 mg, Oral, Every four hours prn, Starting Wed04/07/19 at 1954, Until Wed04/10/19 at 1018, other (Specify), see admin instructions, PACU - Continue Post-Op, Give 10 mg FIRST for pain Scale 7 or greater; if 10 mg fails for pain score 7 or greater, assess if IV medication order is present for pain unrelieved by oral medication., Given 04/08/2019 9:36 PM CDT 10 mg Given 04/08/2019 9:25 AM CDT 10 mg oxyCODONE (OXY-IR) tablet 5 mg Given 04/09/2019 3:27 AM CDT 5 mg 5 mg, Oral, Every four hours prn, Starting Wed04/07/19 at 1954, Until 04/10/19 at 1018, other (Specify), see admin instructions, PACU - Continue Post-Op, Give 5 mg FIRST for pain Scale 4 to 6; if pain unrelieved by 5 mg for pain score 4-6, do NOT give another tablet, but instead assess if IV medication order is present for pain unrelieved by oral medication., potassium chloride (KLOR-CON M20) CR tablet Given 04/10/2019 9:23 AM CDT 40 mEq 40 mEq 40 mEq, Oral, One time, 1 dose, Wed04/10/19 at 0800, Tablet may be broken in half, but should not be crushed or chewed. Tablet may be dissolved in 4 oz of water., potassium chloride 40 mEq, lidocaine 20 mg Given 04/07/2019 3:59 AM CDT 40 mEq in dextrose 5% 500 mL 40 mEq, IV, Now, 1 dose, Wed04/07/19 at 0230, 500 mL, Infuse at 10 mEq per hour. May increase to 20 mEq per hour if patient is on telemetry., sodium chloride 0.9% (bolus) IV Given 04/07/2019 3:58 PM CDT 500 mL 999 mL /hr solution 500 mL 500 mL, IV, at 999 mL/hr, Bolus, 1 dose, Wed04/07/19 at 1650, 500 mL sodium chloride 0.9% IV solution flush bag New Bag 04/07/2019 3:31 PM CDT IV, Continuous, Starting Wed04/07/19 at 1210, Until 04/08/19 at 1209, 1,000 mL, IV line carrier for line flush with blood product infusion., sodium chloride 0.9% IV solution New Bag 04/09/2019 3:22 AM CDT 50 mL/hr IV, at 50 mL/hr, Continuous, Starting Wed04/07/19 at 0330, Until 04/09/19 at 1112, 1,000 mL Rate Change 04/08/2019 3:20 PM CDT 50 mL/hr New Bag 04/08/2019 11:55 AM CDT 100 mL/hr sodium chloride 0.9% IV solution New Bag 04/07/2019 9:26 PM CDT 75 mL/hr IV, at 75 mL/hr, Continuous, Starting 04/07/19 at 2100, Until 04/08/19 at 1422, 1,000 mL, Post - Op warfarin (COUMADIN) tablet 1.25 mg Given 04/07/2019 9:37 PM CDT 1.25 mg 1.25 mg, Oral, Warfarin one time dose, 1 dose, 04/07/19 at 1830, If patient is receiving tube feeding, hold tube feeding 1 hour before and 1 hour after warfarin administration. Administer AFTER surgery today, warfarin (COUMADIN) tablet 1.25 mg Given 04/10/2019 4:47 PM CDT 1.25 mg 1.25 mg, Oral, Warfarin one time dose, 1 dose, 04/10/19 at 1600, If patient is receiving tube feeding, hold tube feeding 1 hour before and 1 hour after warfarin administration., warfarin (COUMADIN) tablet 1.25 mg Given 04/11/2019 11:13 AM CDT 1.25 mg 1.25 mg, Oral, Warfarin one time dose, 1 dose, 04/11/19 at 1100, If patient is receiving tube feeding, hold tube feeding 1 hour before and 1 hour after warfarin administration., warfarin (COUMADIN) tablet 2.5 mg Given 04/08/2019 4:02 PM CDT 2.5 mg 2.5 mg, Oral, Warfarin one time dose, 1 dose, 04/08/19 at 1600, If patient is receiving tube feeding, hold tube feeding 1 hour before and 1 hour after warfarin administration., warfarin (COUMADIN) tablet 2.5 mg Given 04/09/2019 4:39 PM CDT 2.5 mg 2.5 mg, Oral, Warfarin one time dose, 1 dose, 04/09/19 at 1600, If patient is receiving tube feeding, hold tube feeding 1 hour before and 1 hour after warfarin administration., documented in this encounter
[2019-04-12] MEDS: Ondansetron 4 MG Tab.DIS PO PRN (18:03)
[2019-04-12] MEDS: Menthol/Methyl Salicylate 85 GM Tube TOP PRN (19:00)
[2019-04-13] MEDS: Acetaminophen 325 MG Tab PO SCH ×4 (05:02→23:56)
[2019-04-13] MEDS: Furosemide 40 MG Tab PO SCH ×2 (08:35→16:26)
[2019-04-13] MEDS: Potassium Chloride 10 MEQ Tab.ER PO SCH (08:36)
[2019-04-13] MEDS: Cefuroxime 250 MG Tab PO SCH ×2 (08:36→20:20)
[2019-04-13] MEDS: Allopurinol 300 MG Tab PO SCH (08:38)
[2019-04-13] MEDS: Metoprolol Succinate 25 MG Tab.ER PO SCH (08:38)
[2019-04-13] MEDS: Sertraline 50 MG Tab PO SCH (08:39)
[2019-04-13] MEDS: traMADol 50 MG Tab PO PRN (10:28)
[2019-04-13] MEDS: Menthol/Methyl Salicylate 85 GM Tube TOP PRN (11:13)
--- NOTE | 2019-04-13 11:34 | PN ---
DATE SEEN: 04/13/2019 SUBJECTIVE: Hardeep Estrella is a delightful 79-year-old female, recent transfer and hospitalization in [place] with hip fracture. Doing well. Pain is controlled. Ambulation is comfortable, appears increasingly stable. LABORATORY STUDIES: Hemoglobin 8.1, had 1 unit of transfusion. Protime 3.41, today 2.65, managed per pharmacy. Nursing data and medications reviewed. OBJECTIVE: VITAL SIGNS: 36.2, pulse 104 and irregular, 132/68, 89, and 70. GENERAL: Appears comfortable. NECK: Benign. Thyroid small. CHEST: Clear in all lung nguyen. HEART: Regularly irregular at 90, atrial fibrillation. ABDOMEN: Benign. Surgical site intact. ASSESSMENT: Hip fracture. PLAN: Medications, care, and treatment appropriate. Pain pills accordingly. On Coumadin for atrial fibrillation control and PE prevention. /[id number] CLAUDETTE/KAYLA
[2019-04-13] MEDS: Warfarin 2.5 MG Tab PO SCH (16:26)
[2019-04-14] MEDS: Acetaminophen 325 MG Tab PO SCH ×4 (05:09→23:45)
[2019-04-14] MEDS: traMADol 50 MG Tab PO PRN ×2 (07:53→20:23)
[2019-04-14] MEDS: Furosemide 40 MG Tab PO SCH ×2 (08:52→17:54)
[2019-04-14] MEDS: Potassium Chloride 10 MEQ Tab.ER PO SCH (08:53)
[2019-04-14] MEDS: Cefuroxime 250 MG Tab PO SCH ×2 (08:53→20:19)
[2019-04-14] MEDS: Metoprolol Succinate 25 MG Tab.ER PO SCH (08:54)
[2019-04-14] MEDS: Sertraline 50 MG Tab PO SCH (08:55)
[2019-04-14] MEDS: Allopurinol 300 MG Tab PO SCH (08:55)
[2019-04-14] MEDS: Warfarin 2.5 MG Tab PO SCH (17:54)
[2019-04-15] MEDS: Acetaminophen 325 MG Tab PO SCH ×4 (06:05→23:08)
[2019-04-15] MEDS: Furosemide 40 MG Tab PO SCH ×2 (09:27→15:51)
[2019-04-15] MEDS: Metoprolol Succinate 25 MG Tab.ER PO SCH (09:28)
[2019-04-15] MEDS: Potassium Chloride 10 MEQ Tab.ER PO SCH (09:28)
[2019-04-15] MEDS: Sertraline 50 MG Tab PO SCH (09:28)
[2019-04-15] MEDS: Cefuroxime 250 MG Tab PO SCH ×2 (09:28→19:59)
[2019-04-15] MEDS: Allopurinol 300 MG Tab PO SCH (09:29)
[2019-04-15] MEDS: Warfarin 2.5 MG Tab PO SCH (15:51)
[2019-04-15] MEDS: traMADol 50 MG Tab PO PRN (19:48)
[2019-04-16] MEDS: Acetaminophen 325 MG Tab PO SCH ×3 (05:10→18:30)
[2019-04-16] MEDS: Potassium Chloride 10 MEQ Tab.ER PO SCH (08:43)
[2019-04-16] MEDS: Furosemide 40 MG Tab PO SCH ×2 (08:43→16:44)
[2019-04-16] MEDS: Metoprolol Succinate 25 MG Tab.ER PO SCH (08:43)
[2019-04-16] MEDS: Sertraline 50 MG Tab PO SCH (08:43)
[2019-04-16] MEDS: Cefuroxime 250 MG Tab PO SCH (08:43)
[2019-04-16] MEDS: Allopurinol 300 MG Tab PO SCH (08:44)
[2019-04-16] MEDS: Warfarin 2.5 MG Tab PO SCH (16:44)
[2019-04-16] MEDS: traMADol 50 MG Tab PO PRN (19:56)
[2019-04-17] MEDS: Acetaminophen 325 MG Tab PO SCH ×4 (00:12→17:38)
[2019-04-17] MEDS: Furosemide 40 MG Tab PO SCH ×2 (09:30→15:59)
[2019-04-17] MEDS: Potassium Chloride 10 MEQ Tab.ER PO SCH (09:34)
[2019-04-17] MEDS: Metoprolol Succinate 25 MG Tab.ER PO SCH (09:35)
[2019-04-17] MEDS: Sertraline 50 MG Tab PO SCH (09:36)
[2019-04-17] MEDS: Allopurinol 300 MG Tab PO SCH (09:36)
[2019-04-17] MEDS: traMADol 50 MG Tab PO PRN (09:46)
[2019-04-17] MEDS ORDERED: Warfarin 2.5 MG Tab PO ONE (16:00)
[2019-04-18] MEDS: Acetaminophen 325 MG Tab PO SCH ×4 (00:45→17:57)
[2019-04-18] MEDS: Furosemide 40 MG Tab PO SCH ×2 (08:28→16:13)
[2019-04-18] MEDS: Potassium Chloride 10 MEQ Tab.ER PO SCH (08:28)
[2019-04-18] MEDS: Metoprolol Succinate 25 MG Tab.ER PO SCH (08:29)
[2019-04-18] MEDS: Sertraline 50 MG Tab PO SCH (08:29)
[2019-04-18] MEDS: Allopurinol 300 MG Tab PO SCH (08:29)
[2019-04-18] MEDS: Menthol/Methyl Salicylate 85 GM Tube TOP PRN (08:30)
[2019-04-18] MEDS ORDERED: Warfarin 2.5 MG Tab PO SCH (16:00)
[2019-04-18] MEDS: traMADol 50 MG Tab PO PRN (16:22)
[2019-04-18] MEDS: Ondansetron 4 MG Tab.DIS PO PRN (16:22)
[2019-04-19] MEDS: Acetaminophen 325 MG Tab PO SCH ×5 (00:01→23:54)
[2019-04-19] MEDS: traMADol 50 MG Tab PO PRN ×2 (08:12→19:25)
[2019-04-19] MEDS: Furosemide 40 MG Tab PO SCH ×2 (08:12→17:30)
[2019-04-19] MEDS: Metoprolol Succinate 25 MG Tab.ER PO SCH (08:49)
[2019-04-19] MEDS: Potassium Chloride 10 MEQ Tab.ER PO SCH (08:49)
[2019-04-19] MEDS: Sertraline 50 MG Tab PO SCH (08:50)
[2019-04-19] MEDS: Allopurinol 300 MG Tab PO SCH (08:50)
[2019-04-19] MEDS: Menthol/Methyl Salicylate 85 GM Tube TOP PRN (11:33)
[2019-04-19] MEDS: Warfarin 2.5 MG Tab PO SCH (17:29)
[2019-04-20] MEDS: Acetaminophen 325 MG Tab PO SCH ×4 (05:36→23:43)
[2019-04-20] MEDS: Furosemide 40 MG Tab PO SCH ×2 (09:21→16:14)
[2019-04-20] MEDS: Sertraline 50 MG Tab PO SCH (09:21)
[2019-04-20] MEDS: Potassium Chloride 10 MEQ Tab.ER PO SCH (09:21)
[2019-04-20] MEDS: Metoprolol Succinate 25 MG Tab.ER PO SCH (09:21)
[2019-04-20] MEDS: Allopurinol 300 MG Tab PO SCH (09:22)
[2019-04-20] MEDS: traMADol 50 MG Tab PO PRN ×2 (09:30→19:44)
[2019-04-20] MEDS: Warfarin 2.5 MG Tab PO SCH (16:13)
[2019-04-21] MEDS: Acetaminophen 325 MG Tab PO SCH ×3 (05:36→18:03)
[2019-04-21] MEDS: Furosemide 40 MG Tab PO SCH ×2 (07:59→16:55)
[2019-04-21] MEDS: Metoprolol Succinate 25 MG Tab.ER PO SCH (08:00)
[2019-04-21] MEDS: Sertraline 50 MG Tab PO SCH (08:00)
[2019-04-21] MEDS: Potassium Chloride 10 MEQ Tab.ER PO SCH (08:00)
[2019-04-21] MEDS: Allopurinol 300 MG Tab PO SCH (08:00)
[2019-04-21] MEDS: traMADol 50 MG Tab PO PRN ×2 (10:45→21:29)
[2019-04-21] MEDS: Warfarin 2.5 MG Tab PO SCH (16:55)
[2019-04-22] MEDS: Acetaminophen 325 MG Tab PO SCH ×5 (00:23→23:24)
[2019-04-22] MEDS: Furosemide 40 MG Tab PO SCH ×2 (07:38→16:02)
[2019-04-22] MEDS: Allopurinol 300 MG Tab PO SCH (08:26)
[2019-04-22] MEDS: Sertraline 50 MG Tab PO SCH (08:26)
[2019-04-22] MEDS: Metoprolol Succinate 25 MG Tab.ER PO SCH (08:26)
[2019-04-22] MEDS: Potassium Chloride 10 MEQ Tab.ER PO SCH (08:26)
[2019-04-22] MEDS ORDERED: Menthol/Methyl Salicylate 114 GM Jar TOP PRN (09:00)
--- NOTE | 2019-04-22 10:55 | PCM.PN ---
- General Info Date of Service: 04/22/19 Admission Dx/Problem (Free Text): Patient states she overall doing well, feels she is having more stools than usual, soft pudding like. Staff report daily stools. Patient would like to back off on some of her bowel regiment so stools are more formed. Also would like something for her left leg, states it feels like her muscle is spasming or just tight. No drainage from her incisions. Goes to [place] on Wednesday for recheck with Ortho. - Patient Data Vitals - Most Recent: Last Vital Signs Temp 36.4 C 04/21/19 09:00 Pulse 115 H 04/22/19 08:26 Resp 21 H 04/21/19 09:00 BP 125/75 04/22/19 08:26 Pulse Ox 92 L 04/21/19 09:00 Weight - Most Recent: 64.41 kg Med Orders - Current: Current Medications Acetaminophen (Tylenol) 650 mg PO Q6H [facility] Last Admin: 04/22/19 05:08 Dose: 650 mg Allopurinol (Zyloprim) 300 mg PO DAILY [facility] Last Admin: 04/22/19 08:26 Dose: 300 mg Furosemide (Lasix) 40 mg PO 08,16 [facility] Last Admin: 04/22/19 07:38 Dose: 40 mg Lovastatin (Mevacor) 40 mg PO DAILY [facility] Last Admin: 04/22/19 08:26 Dose: 40 mg Methyl Salicylate (Icy Hot Cream) 0 gm TOP BID PRN PRN Reason: Pain (mild 1-3) Last Admin: 04/19/19 11:33 Dose: 1 applic Methyl Salicylate (Pain Relieving Rub Cream) 0 gm TOP QID PRN PRN Reason: Muscle Spasm Metoprolol Succinate (Toprol Xl) 25 mg PO DAILY [facility] Last Admin: 04/22/19 08:26 Dose: 25 mg Ondansetron HCl (Zofran Odt) 4 mg PO Q6H PRN PRN Reason: Nausea/Vomiting Last Admin: 04/18/19 16:22 Dose: 4 mg Potassium Chloride (Klor-Con 10) 10 meq PO DAILY [facility] Last Admin: 04/22/19 08:26 Dose: 10 meq Sertraline HCl (Zoloft) 50 mg PO DAILY [facility] Last Admin: 04/22/19 08:26 Dose: 50 mg Tramadol HCl (Ultram) 50 mg PO Q6H PRN PRN Reason: bone pain Last Admin: 04/21/19 21:29 Dose: 50 mg Warfarin Sodium (Coumadin Sliding Scale) 1 each PO ASDIRECTED [facility] Warfarin Sodium (Coumadin) 2.5 mg PO MoFr@1600 [facility] Last Admin: 04/21/19 16:55 Dose: 2.5 mg Warfarin Sodium (Coumadin) 1.25 mg PO SuTuWeThSa@1600 [facility] Last Admin: 04/20/19 16:13 Dose: 1.25 mg Discontinued Medications Acetaminophen (Tylenol) 650 mg PO ONETIME ONE Stop: 04/11/19 14:16 Last Admin: 04/11/19 14:22 Dose: 650 mg Cefuroxime Axetil (Ceftin) 250 mg PO Q12H [facility] Stop: 04/16/19 09:01 Last Admin: 04/16/19 08:43 Dose: 250 mg Warfarin Sodium (Coumadin) 2.5 mg PO ASDIRECTED [facility] Warfarin Sodium (Coumadin) 1.25 mg PO DAILY@1600 [facility] Last Admin: 04/16/19 16:44 Dose: 1.25 mg Warfarin Sodium (Coumadin) 2.5 mg PO ONETIME ONE Stop: 04/17/19 16:01 Last Admin: 04/17/19 15:59 Dose: 2.5 mg Warfarin Sodium (Coumadin) 1.25 mg PO DAILY@1600 [facility] Last Admin: 04/18/19 16:13 Dose: 1.25 mg - Exam General: Alert, Oriented, Cooperative Lungs: Clear to Auscultation, Normal Respiratory Effort Cardiovascular: Regular Rate, Regular Rhythm GI/Abdominal Exam: Normal Bowel Sounds, Soft, Non-Tender, No Distention Extremities: No Pedal Edema Wound/Incisions: Healing Well (Clean, dry, intact), No Drainage, Other ( Subcutaneous edema present along left lateral thigh, but no erythema, warmth or ecchymosis, TTP(mild)). No: Erythema - Problem List & Annotations (1) S/p left hip fracture SNOMED Code(s): 141204339 Code(s): Z87.81 - PERSONAL HISTORY OF (HEALED) TRAUMATIC FRACTURE Status: Acute Current Visit: Yes (2) Hyperuricemia SNOMED Code(s): 16298432 Code(s): E79.0 - HYPERURICEMIA W/O SIGNS OF INFLAM ARTHRIT AND TOPHACEOUS DIS Status: Acute Current Visit: Yes (3) Atrial fibrillation SNOMED Code(s): 65505468 Code(s): I48.91 - UNSPECIFIED ATRIAL FIBRILLATION Status: Acute Current Visit: Yes (4) Hyperlipidemia SNOMED Code(s): 45273362 Code(s): E78.5 - HYPERLIPIDEMIA, UNSPECIFIED Status: Acute Current Visit : Yes (5) Coronary arteriosclerosis SNOMED Code(s): 80070459 Code(s): I25.10 - ATHSCL HEART DISEASE OF [place] CORONARY ARTERY W/O ANG PCTRS Status: Acute Current Visit: Yes (6) S/P coronary artery bypass graft x 1 SNOMED Code(s): 060426282, 864852926, 222588905 Code(s): Z95.1 - PRESENCE OF AORTOCORONARY BYPASS GRAFT Status: Acute Current Visit: Yes (7) History of bleeding peptic ulcer SNOMED Code(s): 318138658, 423874786 Code(s): Z87.11 - PERSONAL HISTORY OF PEPTIC ULCER DISEASE Status: Acute Current Visit: Yes - Problem List Review Problem List Initiated/Reviewed/Updated: Yes - My Orders Last 24 Hours: My Active Orders 04/22/19 09:00 Menthol/Methyl Salicylate [Pain Relieving Rub Cream] 0 gm TOP QID PRN 04/25/19 06:00 INR,PT,PROTHROMBIN TIME [COAG] Routine - Plan Plan:: Will adjust bowel regiment to help get stool more formed, monitor for constipation as she is on pain medications as she is s/p hip fracture repair. Will also add topical pain cream as needed for left lateral leg, may apply up to 4 times a day, rubbing in for 2-3 minutes which will help mobilize some of the fluid.
[2019-04-22] MEDS: Saccharomyces Boulardii (Probiotic) 250 MG Cap PO SCH ×2 (11:39→20:09)
[2019-04-22] MEDS ORDERED: Menthol/Methyl Salicylate 114 GM Jar TOP SCH (13:00)
[2019-04-22] MEDS: Warfarin 2.5 MG Tab PO SCH (16:02)
[2019-04-22] MEDS: Menthol/Methyl Salicylate 85 GM Tube TOP SCH ×2 (16:03→20:03)
[2019-04-23] MEDS: Acetaminophen 325 MG Tab PO SCH ×3 (05:00→18:29)
[2019-04-23] MEDS: Menthol/Methyl Salicylate 85 GM Tube TOP SCH ×4 (08:24→20:45)
[2019-04-23] MEDS: Furosemide 40 MG Tab PO SCH ×2 (08:24→16:10)
[2019-04-23] MEDS: Potassium Chloride 10 MEQ Tab.ER PO SCH (08:25)
[2019-04-23] MEDS: Metoprolol Succinate 25 MG Tab.ER PO SCH (08:25)
[2019-04-23] MEDS: Sertraline 50 MG Tab PO SCH (08:26)
[2019-04-23] MEDS: Allopurinol 300 MG Tab PO SCH (08:26)
[2019-04-23] MEDS: Saccharomyces Boulardii (Probiotic) 250 MG Cap PO SCH ×2 (08:31→20:46)
[2019-04-23] MEDS: Warfarin 2.5 MG Tab PO SCH (16:10)
--- NOTE | 2019-04-23 16:47 | PCM.PN ---
- General Info Date of Service: 04/23/19 Admission Dx/Problem (Free Text): Seen patient at staff request for sudden mental status change, they had noted last night that she was having visual hallucinations of her being in the room, her father or her son. She is aware that what she is seeing is not real, she has periods where she is not having hallucinations and is coherent. She had UA today in regards to this and no signs of infection but hyaline casts and renal epithelial cells, without back pain, no blood in urine, no history of kidney problems. She states she has not been sleeping well, staff report she is snoring sometimes when they go into the room but don't feel she is sleeping for long periods. No fevers, chills, no change in blood pressure. She has facial droop on left side from previous stroke but no other deficits. Spoke with her son and [id number] Nichole from [place] on her status, in agreement with checking for infection and doing CT head. They would like to be apart of care conference on as Nichole will be flying out prior to her discharge to be with her at home as they will be moving her out to [place] when she is able. - Patient Data Vitals - Most Recent: Last Vital Signs Temp 36.5 C 04/23/19 08:22 Pulse 120 H 04/23/19 08:25 Resp 20 04/23/19 08:22 BP 120/79 04/23/19 08:25 Pulse Ox 96 04/23/19 08:22 Weight - Most Recent: 64.41 kg Lab Results Last 24 Hours: Laboratory Results - last 24 hr 04/23/19 04/23/19 Range/Units 13:47 15:30 Sodium 139 (135-145) mmol/L Potassium 3.3 L (3.5-5.3) mmol/L Chloride 101 (100-110) mmol/L Carbon Dioxide 24 (21-32) mmol/L BUN 10 (7-18) mg/dL Creatinine 0.9 (0.55-1.02) mg/dL Est Cr Clr Drug Dosing 45.20 mL/min Estimated GFR (MDRD) > 60 (>60) BUN/Creatinine Ratio 11.1 (9-20) Glucose 79 L (80-116) mg/dL Calcium 8.7 (8.6-10.2) mg/dL Total Bilirubin 1.0 (0.1-1.3) mg/dL AST 19 (5-25) IU/L ALT 11 L (12-36) U/L Alkaline Phosphatase 248 H (56-112) IU/L Total Protein 5.9 L (6.0-8.0) g/dL Albumin 2.7 L (3.2-4.6) g/dL Globulin 3.2 g/dL Albumin/Globulin Ratio 0.8 Urine Color Yellow (YELLOW) Urine Appearance Clear (CLEAR) Urine pH 6.5 (5.0-6.5) Ur Specific [place] 1.010 (1.010-1.025) Urine Protein Negative (NEGATIVE) mg/dL Urine Glucose (UA) Normal (NORMAL) mg/dL Urine Ketones Negative (NEGATIVE) mg/dL Urine Occult Blood Negative (NEGATIVE) Urine Nitrite Negative (NEGATIVE) Urine Bilirubin Negative (NEGATIVE) Urine Urobilinogen Normal (NEGATIVE) mg/dL Ur Leukocyte Esterase Negative (NEGATIVE) Urine RBC 0-5 (0-5) Urine WBC 0-5 (0-5) Ur Renal Epithelial Cell Moderate H (NS) Urine Bacteria Few H (NS) Hyaline Casts Occasional H (NS) Med Orders - Current: Current Medications Acetaminophen (Tylenol) 650 mg PO Q6H [facility] Last Admin: 04/23/19 11:41 Dose: 650 mg Allopurinol (Zyloprim) 300 mg PO DAILY [facility] Last Admin: 04/23/19 08:26 Dose: 300 mg Furosemide (Lasix) 40 mg PO 08,16 [facility] Last Admin: 04/23/19 16:10 Dose: 40 mg Hydroxyzine Pamoate (Vistaril) 50 mg PO BEDTIME PRN PRN Reason: Insomnia Lovastatin (Mevacor) 40 mg PO DAILY [facility] Last Admin: 04/23/19 08:25 Dose: 40 mg Methyl Salicylate (Icy Hot Cream) 0 gm TOP QID [facility] Last Admin: 04/23/19 16:10 Dose: 1 applic Metoprolol Succinate (Toprol Xl) 25 mg PO DAILY [facility] Last Admin: 04/23/19 08:25 Dose: 25 mg Ondansetron HCl (Zofran Odt) 4 mg PO Q6H PRN PRN Reason: Nausea/Vomiting Last Admin: 04/18/19 16:22 Dose: 4 mg Potassium Chloride (Klor-Con 10) 10 meq PO DAILY [facility] Last Admin: 04/23/19 08:25 Dose: 10 meq Saccharomyces Boulardii (Florastor) 250 mg PO BID [facility] Last Admin: 04/23/19 08:31 Dose: 250 mg Sertraline HCl (Zoloft) 50 mg PO DAILY [facility] Last Admin: 04/23/19 08:26 Dose: 50 mg Tramadol HCl (Ultram) 50 mg PO Q6H PRN PRN Reason: bone pain Last Admin: 04/21/19 21:29 Dose: 50 mg Warfarin Sodium (Coumadin Sliding Scale) 1 each PO ASDIRECTED [facility] Warfarin Sodium (Coumadin) 2.5 mg PO MoFr@1600 [facility] Last Admin: 04/21/19 16:55 Dose: 2.5 mg Warfarin Sodium (Coumadin) 1.25 mg PO SuTuWeThSa@1600 [facility] Last Admin: 04/23/19 16:10 Dose: 1.25 mg Discontinued Medications Acetaminophen (Tylenol) 650 mg PO ONETIME ONE Stop: 04/11/19 14:16 Last Admin: 04/11/19 14:22 Dose: 650 mg Cefuroxime Axetil (Ceftin) 250 mg PO Q12H [facility] Stop: 04/16/19 09:01 Last Admin: 04/16/19 08:43 Dose: 250 mg Methyl Salicylate (Icy Hot Cream) 0 gm TOP BID PRN PRN Reason: Pain (mild 1-3) Last Admin: 04/19/19 11:33 Dose: 1 applic Methyl Salicylate (Pain Relieving Rub Cream) 0 gm TOP QID PRN PRN Reason: Muscle Spasm Methyl Salicylate (Pain Relieving Rub Cream) 0 gm TOP QID [facility] Last Admin: 04/22/19 13:58 Dose: Not Given Warfarin Sodium (Coumadin) 2.5 mg PO ASDIRECTED [facility] Warfarin Sodium (Coumadin) 1.25 mg PO DAILY@1600 [facility] Last Admin: 04/16/19 16:44 Dose: 1.25 mg Warfarin Sodium (Coumadin) 2.5 mg PO ONETIME ONE Stop: 04/17/19 16:01 Last Admin: 04/17/19 15:59 Dose: 2.5 mg Warfarin Sodium (Coumadin) 1.25 mg PO DAILY@1600 [facility] Last Admin: 04/18/19 16:13 Dose: 1.25 mg - Exam General: Alert, Oriented (person, place and time), Cooperative, No Acute Distress HEENT: Pupils Equal, Pupils Reactive, EOMI Neck: Supple, Trachea Midline Lungs: Clear to Auscultation, Normal Respiratory Effort Cardiovascular: Regular Rate, Irregular Rhythm GI/Abdominal Exam: Normal Bowel Sounds, Soft, Non-Tender, No Distention Peripheral Pulses: 2+: Radial (L), Radial (R) Neurological: No New Focal Deficit Psy/Mental Status: Hallucinations - Problem List & Annotations (1) S/p left hip fracture SNOMED Code(s): 321038893 Code(s): Z87.81 - PERSONAL HISTORY OF (HEALED) TRAUMATIC FRACTURE Status: Acute Current Visit: Yes (2) Hyperuricemia SNOMED Code(s): 31263202 Code(s): E79.0 - HYPERURICEMIA W/O SIGNS OF INFLAM ARTHRIT AND TOPHACEOUS DIS Status: Acute Current Visit: Yes (3) Atrial fibrillation SNOMED Code(s): 94445860 Code(s): I48.91 - UNSPECIFIED ATRIAL FIBRILLATION Status: Acute Current Visit: Yes (4) Hyperlipidemia SNOMED Code(s): 54629188 Code(s): E78.5 - HYPERLIPIDEMIA, UNSPECIFIED Status: Acute Current Visit : Yes (5) Coronary arteriosclerosis SNOMED Code(s): 34226798 Code(s): I25.10 - ATHSCL HEART DISEASE OF [place] CORONARY ARTERY W/O ANG PCTRS Status: Acute Current Visit: Yes (6) S/P coronary artery bypass graft x 1 SNOMED Code(s): 380271037, 190121313, 317395397 Code(s): Z95.1 - PRESENCE OF AORTOCORONARY BYPASS GRAFT Status: Acute Current Visit: Yes (7) History of bleeding peptic ulcer SNOMED Code(s): 163056808, 688233527 Code(s): Z87.11 - PERSONAL HISTORY OF PEPTIC ULCER DISEASE Status: Acute Current Visit: Yes (8) Visual hallucination SNOMED Code(s): 97447264 Code(s): R44.1 - VISUAL HALLUCINATIONS Status: Acute Current Visit: Yes (9) Altered mental status SNOMED Code(s): 214160160 Code(s): R41.82 - ALTERED MENTAL STATUS, UNSPECIFIED Status: Acute Current Visit: Yes - Problem List Review Problem List Initiated/Reviewed/Updated: Yes - My Orders Last 24 Hours: My Active Orders 04/23/19 13:47 CULTURE URINE [RM] Routine 04/23/19 16:40 Head wo Cont [CT] Routine 04/23/19 16:41 hydrOXYzine pamoate [Vistaril] 50 mg PO BEDTIME PRN 04/25/19 06:00 INR,PT,PROTHROMBIN TIME [COAG] Routine - Plan Plan:: UA showed negative LE & nitrite, no WBC or RBCs, renal epithelial cells/hyaline casts present. No history of renal disease. History of previous stroke no new deficits, will get CT head. Add Vistaril 50 mg oral at bedtime as needed insomnia. If needed would add Seroquel at bedtime if CT negative. Report given to ER doctor who will be covering as I won't get report before end of shift.
[2019-04-24] MEDS: Acetaminophen 325 MG Tab PO SCH ×5 (00:08→23:59)
[2019-04-24] MEDS: Furosemide 40 MG Tab PO SCH ×2 (09:34→15:51)
[2019-04-24] MEDS: Sertraline 50 MG Tab PO SCH (09:35)
[2019-04-24] MEDS: Potassium Chloride 10 MEQ Tab.ER PO SCH (09:35)
[2019-04-24] MEDS: Allopurinol 300 MG Tab PO SCH (09:35)
[2019-04-24] MEDS: Saccharomyces Boulardii (Probiotic) 250 MG Cap PO SCH ×2 (09:39→21:10)
[2019-04-24] MEDS: Metoprolol Succinate 25 MG Tab.ER PO SCH (09:40)
[2019-04-24] MEDS: Menthol/Methyl Salicylate 85 GM Tube TOP SCH ×4 (09:51→21:11)
[2019-04-24] MEDS ORDERED: hydrOXYzine HCl 25 MG Tab PO PRN (09:55)
[2019-04-24] MEDS ORDERED: Diltiazem IR 30 MG Tab PO SCH (12:00)
--- NOTE | 2019-04-24 15:08 | PCM.PN ---
- General Info Date of Service: 04/24/19 Admission Dx/Problem (Free Text): Patient slept longer last night, feels better this morning but feels a little groggy from the sleep medication. She knows her [id number] is flying in from [place] today and that her friend is picking her up for her doctor's appointment in [place]. CT head was negative for any acute findings. - Patient Data Vitals - Most Recent: Last Vital Signs Temp 37.2 C 04/24/19 09:00 Pulse 120 H 04/24/19 09:40 Resp 16 04/24/19 09:00 BP 124/70 04/24/19 09:40 Pulse Ox 98 04/24/19 09:00 Weight - Most Recent: 64.41 kg Lab Results Last 24 Hours: Laboratory Results - last 24 hr 04/23/19 Range/Units 15:30 Sodium 139 (135-145) mmol/L Potassium 3.3 L (3.5-5.3) mmol/L Chloride 101 (100-110) mmol/L Carbon Dioxide 24 (21-32) mmol/L BUN 10 (7-18) mg/dL Creatinine 0.9 (0.55-1.02) mg/dL Est Cr Clr Drug Dosing 45.20 mL/min Estimated GFR (MDRD) > 60 (>60) BUN/Creatinine Ratio 11.1 (9-20) Glucose 79 L (80-116) mg/dL Calcium 8.7 (8.6-10.2) mg/dL Total Bilirubin 1.0 (0.1-1.3) mg/dL AST 19 (5-25) IU/L ALT 11 L (12-36) U/L Alkaline Phosphatase 248 H (56-112) IU/L Total Protein 5.9 L (6.0-8.0) g/dL Albumin 2.7 L (3.2-4.6) g/dL Globulin 3.2 g/dL Albumin/Globulin Ratio 0.8 [place]lin Results Last 24 Hours: Microbiology 04/23/19 13:47 Urine Culture - Preliminary Urine, Clean Catch Gram Positive Cocci Med Orders - Current: Current Medications Acetaminophen (Tylenol) 650 mg PO Q6H [facility] Last Admin: 04/24/19 12:17 Dose: 650 mg Allopurinol (Zyloprim) 300 mg PO DAILY [facility] Last Admin: 04/24/19 09:35 Dose: 300 mg Diltiazem HCl (Cardizem) 30 mg PO Q6H [facility] Furosemide (Lasix) 40 mg PO 08,16 [facility] Last Admin: 04/24/19 09:34 Dose: 40 mg Hydroxyzine HCl (Atarax) 25 mg PO BEDTIME PRN PRN Reason: SLEEP Methyl Salicylate (Icy Hot Cream) 0 gm TOP QID [facility] Last Admin: 04/24/19 12:18 Dose: 1 applic Metoprolol Succinate (Toprol Xl) 25 mg PO DAILY [facility] Last Admin: 04/24/19 09:40 Dose: 25 mg Ondansetron HCl (Zofran Odt) 4 mg PO Q6H PRN PRN Reason: Nausea/Vomiting Last Admin: 04/18/19 16:22 Dose: 4 mg Potassium Chloride (Klor-Con 10) 10 meq PO DAILY [facility] Last Admin: 04/24/19 09:35 Dose: 10 meq Rosuvastatin Calcium (Crestor) 5 mg PO BEDTIME [facility] Saccharomyces Boulardii (Florastor) 250 mg PO BID [facility] Last Admin: 04/24/19 09:39 Dose: 250 mg Sertraline HCl (Zoloft) 50 mg PO DAILY [facility] Last Admin: 04/24/19 09:35 Dose: 50 mg Tramadol HCl (Ultram) 50 mg PO Q6H PRN PRN Reason: bone pain Last Admin: 04/21/19 21:29 Dose: 50 mg Warfarin Sodium (Coumadin Sliding Scale) 1 each PO ASDIRECTED [facility] Warfarin Sodium (Coumadin) 2.5 mg PO MoFr@1600 [facility] Last Admin: 04/21/19 16:55 Dose: 2.5 mg Warfarin Sodium (Coumadin) 1.25 mg PO SuTuWeThSa@1600 [facility] Last Admin: 04/23/19 16:10 Dose: 1.25 mg Discontinued Medications Acetaminophen (Tylenol) 650 mg PO ONETIME ONE Stop: 04/11/19 14:16 Last Admin: 04/11/19 14:22 Dose: 650 mg Cefuroxime Axetil (Ceftin) 250 mg PO Q12H [facility] Stop: 04/16/19 09:01 Last Admin: 04/16/19 08:43 Dose: 250 mg Hydroxyzine Pamoate (Vistaril) 50 mg PO BEDTIME PRN PRN Reason: Insomnia Last Admin: 04/23/19 20:54 Dose: 50 mg Lovastatin (Mevacor) 40 mg PO DAILY [facility] Last Admin: 04/24/19 09:35 Dose: 40 mg Methyl Salicylate (Icy Hot Cream) 0 gm TOP BID PRN PRN Reason: Pain (mild 1-3) Last Admin: 04/19/19 11:33 Dose: 1 applic Methyl Salicylate (Pain Relieving Rub Cream) 0 gm TOP QID PRN PRN Reason: Muscle Spasm Methyl Salicylate (Pain Relieving Rub Cream) 0 gm TOP QID [facility] Last Admin: 04/22/19 13:58 Dose: Not Given Warfarin Sodium (Coumadin) 2.5 mg PO ASDIRECTED [facility] Warfarin Sodium (Coumadin) 1.25 mg PO DAILY@1600 [facility] Last Admin: 04/16/19 16:44 Dose: 1.25 mg Warfarin Sodium (Coumadin) 2.5 mg PO ONETIME ONE Stop: 04/17/19 16:01 Last Admin: 04/17/19 15:59 Dose: 2.5 mg Warfarin Sodium (Coumadin) 1.25 mg PO DAILY@1600 [facility] Last Admin: 04/18/19 16:13 Dose: 1.25 mg - Exam General: Alert, Oriented, Cooperative, No Acute Distress Lungs: Clear to Auscultation, Normal Respiratory Effort Cardiovascular: Regular Rate, Regular Rhythm GI/Abdominal Exam: Normal Bowel Sounds, Soft, Non-Tender, No Distention - Problem List & Annotations (1) S/p left hip fracture SNOMED Code(s): 028784416 Code(s): Z87.81 - PERSONAL HISTORY OF (HEALED) TRAUMATIC FRACTURE Status: Acute Current Visit: Yes (2) Hyperuricemia SNOMED Code(s): 98319744 Code(s): E79.0 - HYPERURICEMIA W/O SIGNS OF INFLAM ARTHRIT AND TOPHACEOUS DIS Status: Acute Current Visit: Yes (3) Atrial fibrillation SNOMED Code(s): 93615221 Code(s): I48.91 - UNSPECIFIED ATRIAL FIBRILLATION Status: Acute Current Visit: Yes (4) Hyperlipidemia SNOMED Code(s): 19844416 Code(s): E78.5 - HYPERLIPIDEMIA, UNSPECIFIED Status: Acute Current Visit : Yes (5) Coronary arteriosclerosis SNOMED Code(s): 11497667 Code(s): I25.10 - ATHSCL HEART DISEASE OF [place] CORONARY ARTERY W/O ANG PCTRS Status: Acute Current Visit: Yes (6) S/P coronary artery bypass graft x 1 SNOMED Code(s): 927416202, 481669626, 925732615 Code(s): Z95.1 - PRESENCE OF AORTOCORONARY BYPASS GRAFT Status: Acute Current Visit: Yes (7) History of bleeding peptic ulcer SNOMED Code(s): 162710933, 325895336 Code(s): Z87.11 - PERSONAL HISTORY OF PEPTIC ULCER DISEASE Status: Acute Current Visit: Yes (8) Visual hallucination SNOMED Code(s): 77749707 Code(s): R44.1 - VISUAL HALLUCINATIONS Status: Acute Current Visit: Yes (9) Altered mental status SNOMED Code(s): 053425420 Code(s): R41.82 - ALTERED MENTAL STATUS, UNSPECIFIED Status: Acute Current Visit: Yes - Problem List Review Problem List Initiated/Reviewed/Updated: Yes - My Orders Last 24 Hours: My Active Orders 04/23/19 16:40 Head wo Cont [CT] Routine 04/24/19 09:55 hydrOXYzine HCl [Atarax] 25 mg PO BEDTIME PRN 04/24/19 18:00 Diltiazem IR [Cardizem] 30 mg PO Q6H 04/25/19 06:00 INR,PT,PROTHROMBIN TIME [COAG] Routine 04/25/19 21:00 Rosuvastatin [Crestor] 5 mg PO BEDTIME - Plan Plan:: She is doing better now after having long sleep cycle, will decreased Hydroxyzine to 25 mg at bedtime. OT thinks she could possibly go home on depending on what [facility] says. Spoke with Nichole, [id number] who will be arriving late tonight, discussed labs and imaging findings. Also adding Diltiazem 30 mg t3azide for better rate control of her atrial fibrillation, if her blood pressures do well with this then will switch to extended release 120 mg. Switched to Crestor 5 mg as Lovastatin interacts with Diltiazem.
[2019-04-24] MEDS: Warfarin 2.5 MG Tab PO SCH (15:51)
[2019-04-24] MEDS: traMADol 50 MG Tab PO PRN ×2 (15:59→21:12)
[2019-04-24] MEDS: Diltiazem IR 30 MG Tab PO SCH (18:02)
[2019-04-25] MEDS: Diltiazem IR 30 MG Tab PO SCH ×5 (05:21→23:38)
[2019-04-25] MEDS: Acetaminophen 325 MG Tab PO SCH ×4 (05:21→23:38)
[2019-04-25] MEDS: Furosemide 40 MG Tab PO SCH ×2 (08:12→16:20)
[2019-04-25] MEDS: Saccharomyces Boulardii (Probiotic) 250 MG Cap PO SCH ×2 (08:13→20:43)
[2019-04-25] MEDS: Menthol/Methyl Salicylate 85 GM Tube TOP SCH ×4 (08:14→20:43)
[2019-04-25] MEDS: Potassium Chloride 10 MEQ Tab.ER PO SCH (08:15)
[2019-04-25] MEDS: Metoprolol Succinate 25 MG Tab.ER PO SCH (08:17)
[2019-04-25] MEDS: Sertraline 50 MG Tab PO SCH (08:18)
[2019-04-25] MEDS: Allopurinol 300 MG Tab PO SCH (08:18)
--- NOTE | 2019-04-25 10:50 | PCM.PN ---
- General Info Date of Service: 04/25/19 Admission Dx/Problem (Free Text): Patient has not had any hallucinations yesterday or so far today. She had good report from [place] yesterday, she could be discharged when able. PT/OT were in agreement that she could go in a day or two. She did not require the Hydroxyzine last night, slept hard per nursing. No complaints today. No dizziness or lightheadedness. - Patient Data Vitals - Most Recent: Last Vital Signs Temp 37.1 C 04/25/19 07:59 Pulse 85 04/25/19 08:17 Resp 20 04/25/19 07:59 BP 105/60 04/25/19 08:17 Pulse Ox 96 04/25/19 07:59 Weight - Most Recent: 61.28 kg I&O - Last 24 Hours: Intake & Output 04/24/19 04/25/19 04/25/19 22:59 06:59 14:59 Intake Total 420 Balance 420 Lab Results Last 24 Hours: Laboratory Results - last 24 hr 04/25/19 Range/Units 06:30 PT 21.3 H (8.7-11.1) INR 2.22 H (0.89-1.13) [place] Results Last 24 Hours: Microbiology 04/23/19 13:47 Urine Culture - Final Urine, Clean Catch Staphylococcus Aureus Med Orders - Current: Current Medications Acetaminophen (Tylenol) 650 mg PO Q6H [facility] Last Admin: 04/25/19 05:21 Dose: 650 mg Allopurinol (Zyloprim) 300 mg PO DAILY [facility] Last Admin: 04/25/19 08:18 Dose: 300 mg Diltiazem HCl (Cardizem) 30 mg PO Q6H [facility] Last Admin: 04/25/19 05:21 Dose: 30 mg Furosemide (Lasix) 40 mg PO 08,16 [facility] Last Admin: 04/25/19 08:12 Dose: 40 mg Hydroxyzine HCl (Atarax) 25 mg PO BEDTIME PRN PRN Reason: SLEEP Methyl Salicylate (Icy Hot Cream) 0 gm TOP QID [facility] Last Admin: 04/25/19 08:14 Dose: 1 applic Metoprolol Succinate (Toprol Xl) 12.5 mg PO DAILY [facility] Ondansetron HCl (Zofran Odt) 4 mg PO Q6H PRN PRN Reason: Nausea/Vomiting Last Admin: 04/18/19 16:22 Dose: 4 mg Potassium Chloride (Klor-Con 10) 10 meq PO DAILY [facility] Last Admin: 04/25/19 08:15 Dose: 10 meq Rosuvastatin Calcium (Crestor) 5 mg PO BEDTIME [facility] Saccharomyces Boulardii (Florastor) 250 mg PO BID [facility] Last Admin: 04/25/19 08:13 Dose: 250 mg Sertraline HCl (Zoloft) 50 mg PO DAILY [facility] Last Admin: 04/25/19 08:18 Dose: 50 mg Tramadol HCl (Ultram) 50 mg PO Q6H PRN PRN Reason: bone pain Last Admin: 04/24/19 21:12 Dose: 50 mg Warfarin Sodium (Coumadin Sliding Scale) 1 each PO ASDIRECTED [facility] Warfarin Sodium (Coumadin) 2.5 mg PO MoFr@1600 [facility] Last Admin: 04/24/19 15:51 Dose: 2.5 mg Warfarin Sodium (Coumadin) 1.25 mg PO SuTuWeThSa@1600 [facility] Last Admin: 04/23/19 16:10 Dose: 1.25 mg Discontinued Medications Acetaminophen (Tylenol) 650 mg PO ONETIME ONE Stop: 04/11/19 14:16 Last Admin: 04/11/19 14:22 Dose: 650 mg Cefuroxime Axetil (Ceftin) 250 mg PO Q12H [facility] Stop: 04/16/19 09:01 Last Admin: 04/16/19 08:43 Dose: 250 mg Hydroxyzine Pamoate (Vistaril) 50 mg PO BEDTIME PRN PRN Reason: Insomnia Last Admin: 04/23/19 20:54 Dose: 50 mg Lovastatin (Mevacor) 40 mg PO DAILY [facility] Last Admin: 04/24/19 09:35 Dose: 40 mg Methyl Salicylate (Icy Hot Cream) 0 gm TOP BID PRN PRN Reason: Pain (mild 1-3) Last Admin: 04/19/19 11:33 Dose: 1 applic Methyl Salicylate (Pain Relieving Rub Cream) 0 gm TOP QID PRN PRN Reason: Muscle Spasm Methyl Salicylate (Pain Relieving Rub Cream) 0 gm TOP QID [facility] Last Admin: 04/22/19 13:58 Dose: Not Given Metoprolol Succinate (Toprol Xl) 25 mg PO DAILY [facility] Last Admin: 04/25/19 08:17 Dose: 25 mg Warfarin Sodium (Coumadin) 2.5 mg PO ASDIRECTED [facility] Warfarin Sodium (Coumadin) 1.25 mg PO DAILY@1600 [facility] Last Admin: 04/16/19 16:44 Dose: 1.25 mg Warfarin Sodium (Coumadin) 2.5 mg PO ONETIME ONE Stop: 04/17/19 16:01 Last Admin: 04/17/19 15:59 Dose: 2.5 mg Warfarin Sodium (Coumadin) 1.25 mg PO DAILY@1600 [facility] Last Admin: 04/18/19 16:13 Dose: 1.25 mg - Exam General: Alert, Oriented, Cooperative, No Acute Distress Lungs: Clear to Auscultation, Normal Respiratory Effort Cardiovascular: Regular Rate, Irregular Rhythm GI/Abdominal Exam: Normal Bowel Sounds, Soft, Non-Tender, No Distention Neurological: No New Focal Deficit Psy/Mental Status: No: Hallucinations - Problem List & Annotations (1) S/p left hip fracture SNOMED Code(s): 496038013 Code(s): Z87.81 - PERSONAL HISTORY OF (HEALED) TRAUMATIC FRACTURE Status: Acute Current Visit: Yes (2) Hyperuricemia SNOMED Code(s): 25991148 Code(s): E79.0 - HYPERURICEMIA W/O SIGNS OF INFLAM ARTHRIT AND TOPHACEOUS DIS Status: Acute Current Visit: Yes (3) Atrial fibrillation SNOMED Code(s): 06539278 Code(s): I48.91 - UNSPECIFIED ATRIAL FIBRILLATION Status: Acute Current Visit: Yes (4) Hyperlipidemia SNOMED Code(s): 11381577 Code(s): E78.5 - HYPERLIPIDEMIA, UNSPECIFIED Status: Acute Current Visit : Yes (5) Coronary arteriosclerosis SNOMED Code(s): 20074146 Code(s): I25.10 - ATHSCL HEART DISEASE OF [place] CORONARY ARTERY W/O ANG PCTRS Status: Acute Current Visit: Yes (6) S/P coronary artery bypass graft x 1 SNOMED Code(s): 953752603, 684833954, 122435310 Code(s): Z95.1 - PRESENCE OF AORTOCORONARY BYPASS GRAFT Status: Acute Current Visit: Yes (7) History of bleeding peptic ulcer SNOMED Code(s): 622832717, 433672586 Code(s): Z87.11 - PERSONAL HISTORY OF PEPTIC ULCER DISEASE Status: Acute Current Visit: Yes (8) Visual hallucination SNOMED Code(s): 69443375 Code(s): R44.1 - VISUAL HALLUCINATIONS Status: Acute Current Visit: Yes (9) Altered mental status SNOMED Code(s): 020241511 Code(s): R41.82 - ALTERED MENTAL STATUS, UNSPECIFIED Status: Acute Current Visit: Yes - Problem List Review Problem List Initiated/Reviewed/Updated: Yes - My Orders Last 24 Hours: My Active Orders 04/24/19 09:55 hydrOXYzine HCl [Atarax] 25 mg PO BEDTIME PRN 04/24/19 18:00 Diltiazem IR [Cardizem] 30 mg PO Q6H 04/25/19 08:24 Communication Order [RC] ASDIRECTED 04/25/19 10:00 CULTURE URINE [RM] Routine UA W/MICROSCOPIC [URIN] Routine 04/25/19 21:00 Rosuvastatin [Crestor] 5 mg PO BEDTIME 04/26/19 09:00 Metoprolol Succinate [Toprol XL] 12.5 mg PO DAILY - Plan Plan:: She slept well without requiring Hydroxyzine last night. No hallucinations. Urine was negative and urine culture grew about 20,000 staph aureus sensitive to oxacillin. Feel this is contamination so will get straight catheter urine sample and culture as she is asymptomatic. Will decrease Metoprolol to 12.5 mg daily and if her heart rate and blood pressure are overcorrected then will discontinue Metoprolol. Plan to discharge tomorrow.
[2019-04-25] MEDS: Warfarin 2.5 MG Tab PO SCH (16:20)
[2019-04-25] MEDS ORDERED: Rosuvastatin 10 MG Tab PO SCH (21:00)
[2019-04-26] MEDS: Diltiazem IR 30 MG Tab PO SCH (05:48)
[2019-04-26] MEDS: Acetaminophen 325 MG Tab PO SCH ×2 (05:48→11:00)
[2019-04-26 07:36] VITALS: BP 115/61; PULSE 98
[2019-04-26] MEDS ORDERED: Metoprolol Succinate 25 MG Tab.ER PO SCH (09:00)
[2019-04-26] MEDS: Saccharomyces Boulardii (Probiotic) 250 MG Cap PO SCH (09:13)
[2019-04-26] MEDS: Furosemide 40 MG Tab PO SCH (09:13)
[2019-04-26] MEDS: Menthol/Methyl Salicylate 85 GM Tube TOP SCH (09:14)
[2019-04-26] MEDS: Potassium Chloride 10 MEQ Tab.ER PO SCH (09:15)
[2019-04-26] MEDS: Sertraline 50 MG Tab PO SCH (09:16)
[2019-04-26] MEDS: Allopurinol 300 MG Tab PO SCH (09:16)
--- NOTE | 2019-04-26 10:12 | PCM.DCSUM1 ---
Discharge Summary - Hospital Course HPI Initial Comments: Patient was admitted for rehab services for s/p left hip fracture. Had fall at home on 04/07/2019, she had turned and have excruciating pain and fell to the floor. Sent to [place] and surgical repair and here for rehab. History of Atrial fibrillation, hyperlipidemia, hypertension. Had some confusion on narcotics in [place] but resolved prior to admission. - Discharge Data Discharge Date: 04/26/19 Discharge Disposition: Home, W Home Health Agency 06 Condition: Good - Referral to Home Health Date of Face to Face Encounter: 04/26/19 Reason for Homebound Status: s/p hip fracture, PT/OT Primary Care Physician: Evelio Muir MD Skilled Need: PT/OT - Discharge Diagnosis/Problem(s) (1) S/p left hip fracture SNOMED Code(s): 281414203 ICD Code: Z87.81 - PERSONAL HISTORY OF (HEALED) TRAUMATIC FRACTURE Status: Acute (2) Hyperuricemia SNOMED Code(s): 43314765 ICD Code: E79.0 - HYPERURICEMIA W/O SIGNS OF INFLAM ARTHRIT AND TOPHACEOUS DIS Status: Chronic (3) Atrial fibrillation SNOMED Code(s): 92800369 ICD Code: I48.91 - UNSPECIFIED ATRIAL FIBRILLATION Status: Chronic (4) Hyperlipidemia SNOMED Code(s): 29520041 ICD Code: E78.5 - HYPERLIPIDEMIA, UNSPECIFIED Status: Chronic (5) Coronary arteriosclerosis SNOMED Code(s): 92866961 ICD Code: I25.10 - ATHSCL HEART DISEASE OF [place] CORONARY ARTERY W/O ANG PCTRS Status: Chronic (6) S/P coronary artery bypass graft x 1 SNOMED Code(s): 815772560, 929922419, 097356222 ICD Code: Z95.1 - PRESENCE OF AORTOCORONARY BYPASS GRAFT Status: Chronic (7) History of bleeding peptic ulcer SNOMED Code(s): 905040768, 641111338 ICD Code: Z87.11 - PERSONAL HISTORY OF PEPTIC ULCER DISEASE Status: Chronic (8) Visual hallucination SNOMED Code(s): 84439196 ICD Code: R44.1 - VISUAL HALLUCINATIONS Status: Resolved (9) Altered mental status SNOMED Code(s): 829838680 ICD Code: R41.82 - ALTERED MENTAL STATUS, UNSPECIFIED Status: Resolved - Patient Summary/Data Consults: Consultations 04/11/19 18:35 OT Evaluation and Treatment [CONS] Routine Please Evaluate and Treat. OT Reason for Consult: Strengthening This query below is only for informational purposes and is not editable. PT Evaluation and Treatment [CONS] Routine Please Evaluate and Treat. PT Reason for Consult: Post op Ortho Surgery This query below is only for informational purposes and is not editable. Hospital Course: Patient did well with PT/OT, progressed well. Recommended home health for continued therapies. She had some muscle tightness/spasm along her incision and used Icy Hot pain cream on it. WednesdayApr 22 she started having hallucinations and into Wednesday, seeing her , father, her son from [place] was crawling under the couch in her room. She was aware she was having the hallucinations and would have periods where she was coherent. Had UA which was negative for infection, grew 10,000-50,000 staph aureus, repeated UA but was straight cath specimen. The second UA was also negative for infection and repeat urine culture had no growth. Also had CT head which showed no acute changes. Given Hydroxyzine at bedtime to help sleep, she had no further hallucinations on Wednesday, went to [place] to [facility] and did not require any sleep aid on Wednesday night. No hallucinations on Wednesday or day of discharge. She was also started on Diltiazem 30 mg IR every 6 hours as her heart rate was 120-130s with normal blood pressures, she tolerated this well. Switched to Diltiazem 120 mg extended release daily on discharge. Metoprolol was decreased to 12.5 mg to avoid hypotension and bradycardia. Lovastatin was discontinued as it had significant reaction with Diltiazem so was switched to Crestor 5 mg at bedtime. Her [id number] flew out from [place] arrived Wednesday and will be with her for the next month. - Patient Instructions Diet: Regular Diet as Tolerated Activity: As Tolerated Showering/Bathing: May Shower Notify Provider of: Fever, Increased Pain Other/Special Instructions: Follow up with Dr Bernal at [facility]/ Primary Care clinic on WednesdayApr 28 at 1pm, lab at 1230. - Discharge Plan *PRESCRIPTION DRUG MONITORING PROGRAM REVIEWED*: Not Applicable *COPY OF PRESCRIPTION DRUG MONITORING REPORT IN PATIENT [place]: No Prescriptions/Med Rec: Diltiazem [Cardizem CD] 120 mg PO DAILY 90 Days #90 cap.cd hydrOXYzine HCl [hydrOXYzine] 25 mg PO BEDTIME PRN 30 Days #30 tablet PRN Reason: SLEEP Metoprolol Succinate [Toprol XL] 12.5 mg PO DAILY 90 Days #45 tab.er Rosuvastatin [Crestor] 5 mg PO BEDTIME 90 Days #90 tablet Home Medications: Home Meds Potassium Chloride [Klor-Con Sprinkle] 10 meq PO DAILY 04/29/17 [History] Allopurinol [Zyloprim] 300 mg PO DAILY 02/10/19 [History] Indomethacin 50 mg PO TID PRN 02/10/19 [History] Sertraline HCl 50 mg PO DAILY 02/10/19 [History] Furosemide 40 mg PO 04/11/19 [History] Diltiazem [Cardizem CD] 120 mg PO DAILY 90 Days #90 cap.cd 04/26/19 [Rx] Menthol/Methyl Salicylate [Icy Hot] 0 gm TOP QID tube 04/26/19 [Rx] Metoprolol Succinate [Toprol XL] 12.5 mg PO DAILY 90 Days #45 tab.er 04/26/19 [ Rx] Rosuvastatin [Crestor] 5 mg PO BEDTIME 90 Days #90 tablet 04/26/19 [Rx] Warfarin [Coumadin] 1.25 mg PO SuTuWeThSa@1600 tablet 04/26/19 [Rx] Warfarin [Coumadin] 2.5 mg PO MoFr@1600 tablet 04/26/19 [Rx] hydrOXYzine HCl [hydrOXYzine] 25 mg PO BEDTIME PRN 30 Days #30 tablet 04/26/19 [ Rx] Oxygen Therapy Mode: Room Air Patient Handouts: What You Need to Know About Warfarin, Hip Rehabilitation After Surgery, Fall Prevention in Hospitals, Adult, Atrial Fibrillation, Easy-to -Read, Venous Thromboembolism Prevention - Discharge Summary/Plan Comment DC Time >30 min.: No - Patient Data Vitals - Most Recent: Last Vital Signs Temp 97.5 F 04/26/19 07:34 Pulse 98 04/26/19 09:15 Resp 20 04/26/19 07:34 BP 115/61 04/26/19 09:15 Pulse Ox 94 L 04/26/19 07:34 Weight - Most Recent: 135 lb 1.6 oz Lab Results - Last 24 hrs: Laboratory Results - last 24 hr 04/25/19 Range/Units 10:00 Urine Color Yellow (YELLOW) Urine Appearance Clear (CLEAR) Urine pH 5.0 (5.0-6.5) Ur Specific [place] 1.015 (1.010-1.025) Urine Protein Negative (NEGATIVE) mg/dL Urine Glucose (UA) Normal (NORMAL) mg/dL Urine Ketones Negative (NEGATIVE) mg/dL Urine Occult Blood Negative (NEGATIVE) Urine Nitrite Negative (NEGATIVE) Urine Bilirubin Negative (NEGATIVE) Urine Urobilinogen Normal (NEGATIVE) mg/dL Ur Leukocyte Esterase Negative (NEGATIVE) Urine WBC 0-5 (0-5) Ur Squamous Epith Cells Few H (NS,R,O) Urine Bacteria Few H (NS) MY Results - Last 24 hrs: Microbiology 04/25/19 10:00 Urine Culture - Preliminary Urine, Quick Cath (In-Out) No Growth 04/23/19 13:47 Urine Culture - Final Urine, Clean Catch Staphylococcus Aureus Med Orders - Current: Current Medications Acetaminophen (Tylenol) 650 mg PO Q6H [facility] Last Admin: 04/26/19 05:48 Dose: 650 mg Allopurinol (Zyloprim) 300 mg PO DAILY [facility] Last Admin: 04/26/19 09:16 Dose: 300 mg Diltiazem HCl (Cardizem Cd) 120 mg PO DAILY [facility] Furosemide (Lasix) 40 mg PO 08,16 [facility] Last Admin: 04/26/19 09:13 Dose: 40 mg Hydroxyzine HCl (Atarax) 25 mg PO BEDTIME PRN PRN Reason: SLEEP Methyl Salicylate (Icy Hot Cream) 0 gm TOP QID [facility] Last Admin: 04/26/19 09:14 Dose: 1 applic Metoprolol Succinate (Toprol Xl) 12.5 mg PO DAILY [facility] Last Admin: 04/26/19 09:15 Dose: 12.5 mg Ondansetron HCl (Zofran Odt) 4 mg PO Q6H PRN PRN Reason: Nausea/Vomiting Last Admin: 04/18/19 16:22 Dose: 4 mg Potassium Chloride (Klor-Con 10) 10 meq PO DAILY [facility] Last Admin: 04/26/19 09:15 Dose: 10 meq Rosuvastatin Calcium (Crestor) 5 mg PO BEDTIME [facility] Last Admin: 04/25/19 20:42 Dose: 5 mg Saccharomyces Boulardii (Florastor) 250 mg PO BID [facility] Last Admin: 04/26/19 09:13 Dose: 250 mg Sertraline HCl (Zoloft) 50 mg PO DAILY [facility] Last Admin: 04/26/19 09:16 Dose: 50 mg Tramadol HCl (Ultram) 50 mg PO Q6H PRN PRN Reason: bone pain Last Admin: 04/24/19 21:12 Dose: 50 mg Warfarin Sodium (Coumadin Sliding Scale) 1 each PO ASDIRECTED [facility] Warfarin Sodium (Coumadin) 2.5 mg PO MoFr@1600 [facility] Last Admin: 04/24/19 15:51 Dose: 2.5 mg Warfarin Sodium (Coumadin) 1.25 mg PO SuTuWeThSa@1600 [facility] Last Admin: 04/25/19 16:20 Dose: 1.25 mg Discontinued Medications Acetaminophen (Tylenol) 650 mg PO ONETIME ONE Stop: 04/11/19 14:16 Last Admin: 04/11/19 14:22 Dose: 650 mg Cefuroxime Axetil (Ceftin) 250 mg PO Q12H [facility] Stop: 04/16/19 09:01 Last Admin: 04/16/19 08:43 Dose: 250 mg Diltiazem HCl (Cardizem) 30 mg PO Q6H [facility] Last Admin: 04/26/19 05:48 Dose: 30 mg Hydroxyzine Pamoate (Vistaril) 50 mg PO BEDTIME PRN PRN Reason: Insomnia Last Admin: 04/23/19 20:54 Dose: 50 mg Lovastatin (Mevacor) 40 mg PO DAILY [facility] Last Admin: 04/24/19 09:35 Dose: 40 mg Methyl Salicylate (Icy Hot Cream) 0 gm TOP BID PRN PRN Reason: Pain (mild 1-3) Last Admin: 04/19/19 11:33 Dose: 1 applic Methyl Salicylate (Pain Relieving Rub Cream) 0 gm TOP QID PRN PRN Reason: Muscle Spasm Methyl Salicylate (Pain Relieving Rub Cream) 0 gm TOP QID [facility] Last Admin: 04/22/19 13:58 Dose: Not Given Metoprolol Succinate (Toprol Xl) 25 mg PO DAILY [facility] Last Admin: 04/25/19 08:17 Dose: 25 mg Warfarin Sodium (Coumadin) 2.5 mg PO ASDIRECTED [facility] Warfarin Sodium (Coumadin) 1.25 mg PO DAILY@1600 [facility] Last Admin: 04/16/19 16:44 Dose: 1.25 mg Warfarin Sodium (Coumadin) 2.5 mg PO ONETIME ONE Stop: 04/17/19 16:01 Last Admin: 04/17/19 15:59 Dose: 2.5 mg Warfarin Sodium (Coumadin) 1.25 mg PO DAILY@1600 [facility] Last Admin: 04/18/19 16:13 Dose: 1.25 mg - Exam General: Reports: Alert, Oriented, Cooperative, No Acute Distress Lungs: Reports: Clear to Auscultation, Normal Respiratory Effort Cardiovascular: Reports: Regular Rate, Irregular Rhythm GI/Abdominal Exam: Normal Bowel Sounds, Soft, Non-Tender, No Distention Extremities: No Pedal Edema Neurological: Reports: No New Focal Deficit Psy/Mental Status: Reports: Alert, Normal Affect, Normal Mood
[2019-04-26] MEDS ORDERED: Diltiazem 120 MG Cap.CD PO SCH (12:00)
== END 2019-04-26 11:20 | disposition home health service (06) | DRG 561 ==
LOC: FB.MS 13:10
PROVIDERS: ADMIT Family Medicine; ATTEND Family Medicine
DX: S72.002D Fracture of unspecified part of neck of left femur, subsequent encounter for closed fracture with routine healing (principal); E79.0 Hyperuricemia without signs of inflammatory arthritis and tophaceous disease; I48.91 Unspecified atrial fibrillation; I10 Essential (primary) hypertension; E78.5 Hyperlipidemia, unspecified; I25.10 Atherosclerotic heart disease of native coronary artery without angina pectoris; R60.0 Localized edema; M62.838 Other muscle spasm; R41.82 Altered mental status, unspecified; R44.1 Visual hallucinations; Z87.11 Personal history of peptic ulcer disease; Z79.01 Long term (current) use of anticoagulants; Z79.899 Other long term (current) drug therapy; Z91.041 Radiographic dye allergy status; Z95.1 Presence of aortocoronary bypass graft
CPT/HCPCS: 36415; 51701; 70450; 80053; 81001; 85014; 85018; 85610; 87086; 87088; 87186; 97110-GO; 97110-GP; 97116-GP; 97161-GP; 97165-GO; 97530-GO; 97530-GP; 97535-GO; A9270-GY